=== PATIENT | female | born 1990 | race Hispanic/Latino ===

== ENCOUNTER 2018-04-06 03:04 | Emergency (ER) | payer OTHER, MEDICAID, SELFPAY ==
[2018-04-06 03:14] VITALS: BP 121/86; PULSE 79; RESP 20; TEMP 36.9; O2SAT 100; BMI 25.7
--- NOTE | 2018-04-06 03:27 | ED_ITS ---
HPI - Headache General Chief Complaint: Headache Stated Complaint: left side headache for several days/eye pressure Time Seen by Provider: 04/06/18 03:09 Source: patient and family Mode of arrival: ambulatory Limitations: no limitations History of Present Illness HPI Narrative: 27-year-old female with history of headaches presents with her and child and chief complaint of a rather typical headache for her. She states she gets them a few times a month and they tend to be left frontal, behind her eye associated with photophobia and sensitivity to loud noises. She is nauseated but not vomiting. She denies any recent fever or chills. She has had no injuries or exposure to noxious stimuli. She took her standard migraine therapy at home including Excedrin without relief. She denies numbness, tingling or weakness MD Complaint: headache and migraine Onset (ago): hour(s) Onset description: gradual Location: left and frontal Severity: moderate Severity scale (1-10): 8 Quality: aching, throbbing and similar to previous headaches Relieving factors: dark room Exacerbating factors: exertion, light and noise Associated symptoms: nausea, photophobia, sensitivity to sound and eye pain Treatments prior to arrival: acetaminophen and ibuprofen Related Data Allergies Allergy/AdvReac Type Severity Reaction Status Date / Time No Known Drug Allergies Allergy Verified 04/06/18 03:23 Review of Systems Review of Systems All systems reviewed & are unremarkable except as noted in HPI and below Constitutional Denies chills, Denies fever(s), Reports headache(s), Denies lethargy and Denies weakness Eyes Denies change in vision, Denies eye discharge, Denies irritation and Denies loss of vision ENT Ears, Nose, Mouth, and Throat: Denies change in voice, Reports headache(s), Denies neck pain and Denies sore throat Cardiovascular Denies chest pain, Denies irregular heart rhythm, Denies lightheadedness, Denies palpitations, Denies dyspnea, Denies dyspnea on exertion and Denies orthopnea Respiratory Denies cough, Denies dyspnea, Denies dyspnea on exertion and Denies wheezing Gastrointestinal Gastrointestinal: Denies abdominal pain, Denies change in bowel habits, Denies diarrhea, Reports nausea and Denies vomiting Genitourinary Denies hematuria, Denies flank pain, Denies urinary incontinence and Denies urinary urgency Musculoskeletal Denies neck pain Integumentary/Breasts Denies pruritus, Denies erythema, Denies rash and Denies wounds Neurologic Denies confusion, Reports headache(s), Denies loss of vision and Denies weakness Psychiatric Denies anxiety, Denies confusion, Denies depression, Denies homicidal ideation and Denies suicidal ideation Endocrine Denies palpitations Hematologic/Lymphatic Denies easy bruising Allergic/Immunologic Denies wheezing PFSH Family History Grandfather Stomach cancer Grandmother Heart disease Exam Narrative Exam Narrative: GENERAL: This is a well-nourished, well-developed patient, in mild distress. Obviously uncomfortable, sitting in a dark room, covering her eyes HEAD: Atraumatic. Normocephalic. No temporal or scalp tenderness. EYES: Pupils equal round and reactive. Extraocular motions intact. No scleral icterus. No injection or drainage. ENT: Nose without bleeding, purulent drainage or septal hematoma. Throat without erythema, tonsillar hypertrophy or exudate. Uvula midline. Airway patent. NECK: Trachea midline. No JVD or lymphadenopathy. Supple, nontender, no meningeal signs. CARDIOVASCULAR: Regular rate and rhythm without murmurs, gallops, or rubs. RESPIRATORY: Clear to auscultation. Breath sounds equal bilaterally. No wheezes , rales, or rhonchi. GASTROINTESTINAL: Abdomen soft, non-tender, nondistended. No hepato-splenomegaly , or palpable masses. No guarding. EXTREMITIES: No clubbing, cyanosis, or edema. No joint tenderness, effusion, or edema noted. BACK: Nontender without deformity or crepitance. No flank tenderness. NEURO: AOx3. SKIN: No rash or erythema. Initial Vital Signs Initial Vital Signs: Vital Signs Temperature 98.5 F 04/06/18 03:14 Pulse Rate 79 04/06/18 03:14 Respiratory Rate 20 04/06/18 03:14 Blood Pressure 121/86 04/06/18 03:14 Pulse Oximetry 100 04/06/18 03:14 Course Orders Ordered: Sodium Chloride (Normal Saline 0.9%) 1,000 mls @ 1,000 mls/hr IV BOLUS ONE Stop: 04/06/18 04:20 Last Admin: 04/06/18 03:36 Dose: 1,000 mls/hr Discontinued Medications Dexamethasone (Decadron) 10 mg IV NOW ONE Stop: 04/06/18 03:22 Last Admin: 04/06/18 03:37 Dose: 10 mg Ketorolac Tromethamine (Toradol) 15 mg IV NOW ONE Stop: 04/06/18 03:22 Last Admin: 04/06/18 03:32 Dose: 15 mg Metoclopramide HCl (Reglan) 10 mg IV NOW ONE Stop: 04/06/18 03:22 Last Admin: 04/06/18 03:40 Dose: 10 mg Reevaluation(s) Reevaluation #1: Patient has tremendous improvement of symptoms after above- stated medications Vital Signs - 8 hr 04/06/18 03:14 Temperature 98.5 F Pulse Rate 79 Respiratory Rate 20 Blood Pressure 121/86 Pulse Oximetry 100 Discharge Plan Departure Patient Disposition: Home Clinical Impression: Migraine Instructions: DI for Migraine Activity Restrictions/Additional Instructions: *You have been diagnosed with [ acute migraine headache ] *What to do: * continue to take medications as directed *Follow up with your primary care provider in 2-3 days, call for an appointment. Let them know you were seen in the Emergency Department and that we ask that you be seen in follow up *Return to ER if you should have any new, worsening or concerning symptoms , such as [worsening pain, persistent vomiting, fever over 101 F, development of focal neurologic findings such as numbness, tingling or weakness on 1 side of her body, or other bothersome symptoms ] Referrals: Toña Mallory MD [Primary Care Provider] - Stand Alone Forms: Work/School Restrictions
[2018-04-06] MEDS: KETOROLAC 60 MG/2 ML VIAL 15 MG IV (03:32)
[2018-04-06] MEDS: SODIUM CHLORIDE 0.9% 1,000 ML 1000 ML IV (03:36)
[2018-04-06] MEDS: DEXAMETHASONE 10 MG/ML VIAL IV (03:37)
[2018-04-06] MEDS: METOCLOPRAMIDE 10 MG/2 ML INJ IV (03:40)
[2018-04-06 04:50] VITALS: BP 116/78; PULSE 74; RESP 16; O2SAT 100
== END 2018-04-06 04:51 | disposition home or self-care (01) ==
PROVIDERS: Emergency Provider Emergency Medicine; Family Provider Family Medicine; PCP Family Medicine
DX: G43.909 Migraine, unspecified, not intractable, without status migrainosus (principal)
CPT/HCPCS: 96361; 96374; 96375; 99283; 99284; J1100; J1885; J2765

== ENCOUNTER → 2018-08-15 10:53 | Outpatient (CLI) | payer OTHER, MEDICAID, SELFPAY ==
--- NOTE | 2018-08-15 10:54 | DI.US.S_ITS ---
LIMITED ULTRASOUND OF RIGHT BREAST AND AXILLA: 08/15/2018 CLINICAL: Diffuse right breast pain. No prior exams were available for comparison. Color flow and real-time ultrasound of the right breast lower inner, upper outer, and lower outer quadrants, and axilla regions were performed on the areas of interest. There is 1.8 cm x 0.6 cm x 1.9 cm oval mass with a circumscribed margin in the right breast at 4 o'clock anterior depth. This oval mass is hypoechoic with a well-defined boundary and internal echoes. Color flow imaging demonstrates that there is no vascularity present. No abnormalities were seen sonographically in the right axilla. IMPRESSION: SUSPICIOUS OF MALIGNANCY The 1.8 cm x 0.6 cm x 1.9 cm oval mass in the right breast is at a low suspicion for malignancy. An ultrasound guided biopsy is recommended. There is no abnormality seen in the right breast or in the right axilla to correspond with the pain in the outer aspect and in the right axilla, however, clinical followup is recommended. The findings were discussed with the patient at the conclusion of the study by Dr. Capone. This exam was interpreted at Station ID: [id number]. Electronically Signed By: Brenton laguerre/:08/15/2018 14:44:05 letter sent: Biopsy Required Ultrasound BI-RADS: 4a Suspicious abnormality - low suspicion for malignancy
== END ==
PROVIDERS: PCP Family Medicine; Visit Provider Registered Nurse
DX: R92.8 Other abnormal and inconclusive findings on diagnostic imaging of breast (principal); N64.4 Mastodynia; N63.14 Unspecified lump in the right breast, lower inner quadrant
CPT/HCPCS: 76642

== ENCOUNTER → 2018-08-24 09:29 | Outpatient (CLI) | payer OTHER, MEDICAID, SELFPAY ==
--- NOTE | 2018-08-24 | PATH_ITS ---
[facility] Accession Number: [id number] . 01 Material submitted: . RT BREAST MASS . 01 Clinical history: . 4:00, 4CM FM . 01 Diagnosis: Right Breast Mass, 4 o'clock, 4 cm from Nipple, Biopsy: Fibroadenomatoid change; see comment. Focal usual ductal hyperplasia, mild acute and chronic inflammation. Negative for atypia, carcinoma in situ, or malignancy. MRV/08/25/2018 . 01 Comment: The histologic features, given the reported imaging findings of an oval circumscribed 1.9 cm mass, are consistent with a fibroadenoma. . 01 Electronically signed: . Michelle Gibson MD, Pathologist NPI- [id number] . 01 Gross description: . Received one formalin-filled container labeled with the patient's name and designated RT brst mass, 4 o'clock, 4 cm FN. The specimen is received with plastic filter, sample loose in container. The sample consists of multiple portions of yellow-tejada soft tissue, which aggregate to 1.5 x 0.5 x 0.2 cm. The specimen is filtered, wrapped and entirely submitted in one cassette. Collection date 08/24/2018. Collection time per container is 10:23 a.m. Total fixation time 12 hours up to 24. ([facility] [place]:[id number]) /[facility] . 01 Pathologist provided ICD-10: D24.1 . 01 CPT . 809812 Performed at: [address] [id number] MD Brenton Tapia MD Phone: [phone]
--- NOTE | 2018-08-24 | DI.MG.S_ITS ---
UNILATERAL RIGHT DIGITAL DIAGNOSTIC MAMMOGRAM POST-NEEDLE BIOPSY: 08/24/2018 CLINICAL: Post clip placement. Pain in the right breast. Comparison is made to exams dated: 08/24/2018 ultrasound biopsy and 08/15/2018 [facility]. The tissue of right breast is extremely dense, which lowers the sensitivity of mammography. The biopsy clip is next to the biopsy site. IMPRESSION: POST PROCEDURE MAMMOGRAM FOR MARKER PLACEMENT The biopsy clip next to the biopsy site. This exam was interpreted at Station ID: [id number]. NOTE: For mammograms, a report in lay terms will be sent to the patient. Approximately 15% of breast malignancies will not be visualized mammographically. In the management of a palpable breast mass, a negative mammogram must not discourage biopsy of a clinically suspicious lesion. Electronically Signed By: Casper biggs/caroline:08/24/2018 14:53:06 ACR BI-RADS Category Post-procedure mammogram for marker placement
--- NOTE | 2018-08-24 09:30 | DI.US.S_ITS ---
ULTRASOUND GUIDED BIOPSY RIGHT BREAST USING VACUUM DEVICE WITH POST MAMMOGRAPHIC AND ULTRASOUND IMAGIN08/24/2018 CLINICAL: Pain of right breast. PATIENT CONSENT: Risks (minor bleeding, infection, vasovagal reaction and repeat procedure), benefits and alternatives were explained to the patient and written informed consent was obtained. Correlation is made to exams dated: 08/24/2018 ultrasound biopsy and 08/15/2018 [facility]. An ultrasound guided biopsy using real-time ultrasound was performed for the irregular shaped mass located in the right breast at 4 o'clock middle depth. This was described on the previous ultrasound report. The skin was prepped in the usual manner. Local anesthetic was administered to the access site. The abnormality was approached from the lateral aspect. A 13 gauge biopsy needle was placed adjacent to the abnormality under ultrasound guidance. Once the needle was documented to be in the correct location, five specimens were obtained using the Mammotome biopsy system. Post procedure mammographic and ultrasound imaging demonstrates the clip at the targeted area. The specimens were sent to the laboratory for pathological analysis. IMPRESSION: ULTRASOUND GUIDED BIOPSY BENIGN Ultrasound guided biopsy of the mass in the right breast middle depth was successful. Pathology indicates benign usual ductal hyperplasia (DHU), fibroadenomatoid change, chronic inflammation, and acute inflammation. Pathology results are concordant with imaging findings. This exam was interpreted at Station ID: [id number]. Casper Jerome M.D. fx,aty/:08/29/2018 18:57:16
== END ==
PROVIDERS: PCP Family Medicine; Visit Provider Registered Nurse
DX: D24.1 Benign neoplasm of right breast (principal); N60.91 Unspecified benign mammary dysplasia of right breast; N61.0 Mastitis without abscess
CPT/HCPCS: 19083; 77065; 88305

== ENCOUNTER → 2018-11-30 10:18 | Outpatient (CLI) | payer OTHER, MEDICAID, SELFPAY ==
[2018-11-30 11:13] LABS: Pregnancy Test Urine Negative (Negative)
== END ==
PROVIDERS: PCP Family Medicine; Visit Provider Family Medicine
DX: Z30.431 Encounter for routine checking of intrauterine contraceptive device (principal)
CPT/HCPCS: 81025

== ENCOUNTER → 2018-12-13 16:07 | Outpatient (CLI) | payer OTHER, MEDICAID, SELFPAY ==
[2018-12-13 18:29] LABS: Urine N gonorrhoeae NOT DETECTED
[2018-12-13 19:01] LABS: Urine Chlamydia NOT DETECTED
== END ==
PROVIDERS: PCP Family Medicine; Visit Provider Family Medicine
DX: Z11.3 Encounter for screening for infections with a predominantly sexual mode of transmission (principal)
CPT/HCPCS: 87491; 87591

== ENCOUNTER → 2019-04-18 15:26 | Outpatient (CLI) | payer OTHER, MEDICAID, SELFPAY ==
[2019-04-18 20:10] LABS: Urine N gonorrhoeae NOT DETECTED
[2019-04-18 22:01] LABS: Urine Chlamydia NOT DETECTED
== END ==
PROVIDERS: PCP Family Medicine; Visit Provider Nurse Practitioner Family
DX: N89.8 Other specified noninflammatory disorders of vagina (principal)
CPT/HCPCS: 87210; 87491; 87591

== ENCOUNTER → 2019-08-13 14:23 | Outpatient (CLI) | payer OTHER, MEDICAID, SELFPAY ==
[2019-08-21 14:51] LABS: C.trachomatis RNA NOT DETECTED; N.gonorrhoeae RNA NOT DETECTED
== END ==
PROVIDERS: PCP Family Medicine; Visit Provider Family Medicine
DX: Z12.4 Encounter for screening for malignant neoplasm of cervix (principal); N10 Acute pyelonephritis
CPT/HCPCS: 87491; 87591

== ENCOUNTER → 2019-08-21 08:17 | Outpatient (CLI) | payer OTHER, MEDICAID, SELFPAY ==
--- NOTE | 2019-08-21 08:18 | DI.US.S_ITS ---
PROCEDURE: US PELVIC COMPLETE INDICATIONS: DYSMENORRHEA,MENORRHAGIA TECHNIQUE: Real-time scanning was performed of the pelvic organs, with image documentation. Additional endovaginal scanning was necessary due to incomplete visualization of the adnexal and endometrial structures by transabdominal scanning. COMPARISON: [facility], , PELVIC COMPLETE, 01/03/2017, 16:14. FINDINGS: Transabdominal scanning: Limited scanning through the kidneys shows no hydronephrosis. No pathologic free abdominal or pelvic fluid. Endovaginal scanning: Uterus: Uterus is normal in size at 7.1 x 4.0 x 5.3 cm. The endometrium measures 8 mm in combined thickness. An intrauterine device is identified within the endometrial cavity and appears appropriately positioned. Ovaries: Bilateral ovaries are normal in appearance. Right ovary measures 3.0 x 2.1 x 3.1 cm. Left ovary measures 3.0 x 1.4 x 3.2 cm. No suspicious ovarian/adnexal masses. IMPRESSION: Negative sonographic evaluation the pelvis. An intrauterine device is visualized within the endometrial cavity. Dictated by: Sorin Jerome M.D. on 08/21/2019 at 13:08 Approved by: Sorin Jerome M.D. on 08/21/2019 at 13:12
== END ==
PROVIDERS: PCP Family Medicine; Referring Provider Family Medicine; Visit Provider Family Medicine
DX: N94.6 Dysmenorrhea, unspecified (principal); N92.0 Excessive and frequent menstruation with regular cycle; Z97.5 Presence of (intrauterine) contraceptive device
CPT/HCPCS: 76830; 76856

== ENCOUNTER → 2019-09-12 13:45 | Outpatient (CLI) | payer OTHER, MEDICAID, SELFPAY ==
[2019-09-12 16:40] LABS: Hepatitis B Surface Antigen NEGATIVE s/c (NEGATIVE)
[2019-09-12 17:07] LABS: HIV 1 & 2 Ab/Ag 4th Gen Combo NEGATIVE (NEGATIVE); Hep C Virus Ab w/Reflex Quant NEGATIVE s/c (NEGATIVE)
[2019-09-14 22:02] LABS: RPR Screen Nonreactive (Nonreactive)
== END ==
PROVIDERS: PCP Family Medicine; Referring Provider Obstetrics & Gynecology; Visit Provider Obstetrics & Gynecology
DX: Z11.3 Encounter for screening for infections with a predominantly sexual mode of transmission (principal)
CPT/HCPCS: 36415; 86592; 86803; 87340; 87389

== ENCOUNTER 2019-10-13 00:22 | Emergency (ER) | payer OTHER, MEDICAID, SELFPAY ==
--- NOTE | 2019-10-13 00:25 | ED_ITS ---
HPI - Headache General Chief Complaint: Headache Stated Complaint: migraine 3 days Time Seen by Provider: 10/13/19 00:24 Source: patient Mode of arrival: Ambulatory Limitations: no limitations History of Present Illness HPI Narrative: 29-year-old female nonsmoker with a history of migraines presents with a chief complaint of a gradually worsening left frontal headache over the course of the past 3 days. She states it is made worse by bright lights, loud noises and exertion. It is squeezing in nature. She has had nausea but no vomiting. She denies any fever or chills nor runny nose, sore throat or cough. She has had no recent injury or trauma. She denies any chest pain or shortness of breath. She denies any exposure to persons known to be positive for COVID-19 MD Complaint: headache and migraine Onset (ago): day(s) Onset description: gradual Location: left and frontal Quality: aching and throbbing Relieving factors: dark room Exacerbating factors: light and noise Associated symptoms: nausea Treatments prior to arrival: ibuprofen Related Data Home Medications Medication Instructions Recorded Confirmed [id number] 250 2 tab PO Q6H PRN 05/09/18 09/11/19 mg-250 mg-65 mg tablet Previous Rx's Medication Instructions Recorded lidocaine 5 % topical patch 1 patch TOP DAILY PRN #15 each 09/03/19 levonorgestrel 0.15 mg-ethinyl 1 tab PO DAILY #84 tab 09/11/19 estradiol 0.03 mg tablet Allergies Allergy/AdvReac Type Severity Reaction Status Date / Time No Known Drug Allergies Allergy Verified 10/13/19 00:32 Review of Systems Constitutional Constitutional: Denies chills, Denies fatigue, Denies fever(s), Denies frequent falls, Reports headache(s), Denies lethargy and Denies weakness Eyes Eyes: Denies change in vision, Denies eye discharge, Denies irritation and Denies loss of vision ENT Ears, Nose, Mouth, and Throat: Denies change in voice, Denies dizziness, Reports headache(s), Denies neck pain, Denies sore throat and Denies throat swelling Cardiovascular Cardiovascular: Denies chest pain, Denies irregular heart rhythm, Denies lightheadedness, Denies palpitations, Denies dyspnea, Denies dyspnea on exertion and Denies orthopnea Respiratory Respiratory: Denies cough, Denies dyspnea, Denies dyspnea on exertion and Denies wheezing Gastrointestinal Gastrointestinal: Denies abdominal pain, Denies change in bowel habits, Denies diarrhea, Reports nausea and Denies vomiting Genitourinary Genitourinary: Denies hematuria, Denies flank pain, Denies urinary incontinence and Denies urinary urgency Musculoskeletal Musculoskeletal: Denies back pain, Denies muscle weakness, Denies neck pain, Denies numbness and Denies tingling Integumentary/Breasts Skin/Breast: Denies pruritus, Denies erythema, Denies rash and Denies wounds Neurologic Neurologic: Denies behavioral changes, Denies confusion, Denies dizziness, Denies frequent falls, Reports headache(s), Denies loss of vision, Denies numbness, Denies tingling and Denies weakness Psychiatric Psychiatric: Denies anxiety, Denies behavioral changes, Denies confusion, Denies depression, Denies homicidal ideation and Denies suicidal ideation Endocrine Endocrine: Denies fatigue, Denies flushing and Denies palpitations Hematologic/Lymphatic Hematologic/Lymphatic: Denies easy bruising Allergic/Immunologic Allergic/Immunologic: Denies urticaria, Denies throat swelling and Denies wheezing Patient History Medical History Anemia (Chronic) Gastric ulcer (Chronic) Genital warts (Chronic) IBS (irritable bowel syndrome) (Chronic) Vaginal delivery (Resolved 04/21/15) Family History Grandfather Stomach cancer Grandmother Heart disease Father No problems noted. Grandmother No problems noted. Mother No problems noted. Grandfather Kidney disease Sister No problems noted. Sister No problems noted. Sister No problems noted. Social History Smoking Status: Never smoker alcohol intake: never substance use type: does not use Smoking Status: Never smoker Exam Narrative Exam Narrative: GENERAL: [29] year old patient appears stated age. Well- nourished, well-developed patient, in mild distress. Obviously uncomfortable, sitting in a dark room rubbing her temples HEAD: Atraumatic. Normocephalic. EYES: Pupils equal round and reactive. Extraocular motions intact. No scleral icterus. No injection or drainage. ENT: Nose without bleeding, purulent drainage. Throat without erythema, tonsillar hypertrophy or exudate. Airway patent. NECK: Trachea midline. Non tender CARDIOVASCULAR: Regular rate and rhythm without murmurs, gallops, or rubs. RESPIRATORY: Clear to auscultation. Breath sounds equal bilaterally. No wheezes, rales, or rhonchi. GASTROINTESTINAL: Abdomen soft, non-tender, nondistended. EXTREMITIES: No edema or joint tenderness. BACK: Nontender without deformity or crepitance. No flank tenderness. NEURO: AOx3. SKIN: No rash or erythema of visible areas NIH Stroke Scale 1a. LOC: Patient is alert and keenly responsive (0) 1b. LOC Questions: Patient answers both LOC questions accurately (0) 1c. LOC Commands: Patient performs both tasks correctly (0) 2. Best Gaze: Normal (0) 3. Visual: No visual loss (0) 4. Facial palsy: Normal symmetrical movements (0) 5. Motor arm: No drift (0) 6. Motor leg: No drift (0) 7. Limb ataxia: Absent (0) 8. Sensory: Normal (0) 9. Best language: No aphasia; normal (0) 10. Dysarthria: Normal (0) 11. Extinction and inattention: No abnormality (0) NIHSS: 0 Initial Vital Signs Initial Vital Signs: Vital Signs Temperature 98.7 F 10/13/19 00:27 Pulse Rate 96 H 10/13/19 00:27 Respiratory Rate 14 10/13/19 00:27 Blood Pressure 162/102 H 10/13/19 00:27 Pulse Oximetry 100 10/13/19 00:27 Course Course Course Narrative: patient had a near complete resolution of symptoms after the above stated therapies Orders Ordered: Discontinued Medications Dexamethasone (Decadron) 10 mg IV NOW ONE Stop: 10/13/19 00:29 Last Admin: 10/13/19 00:51 Dose: 10 mg Documented by: PARI Sodium Chloride (Normal Saline 0.9%) 1,000 mls @ 1,000 mls/hr IV BOLUS ONE Stop: 10/13/19 01:27 Last Infusion: 10/13/19 02:17 Dose: 0 mls/hr Documented by: Admin: 10/13/19 00:52 Dose: 1,000 mls/hr Documented by: PARI Ketorolac Tromethamine (Toradol) 15 mg IV NOW ONE Stop: 10/13/19 00:29 Last Admin: 10/13/19 00:51 Dose: 15 mg Documented by: PARI Metoclopramide HCl (Reglan) 10 mg IV NOW ONE Stop: 10/13/19 00:29 Last Admin: 10/13/19 00:51 Dose: 10 mg Documented by: PARI Vital Signs Vital signs: Vital Signs - 8 hr 10/13/19 00:27 10/13/19 02:19 Temperature 98.7 F Pulse Rate 96 H 71 Respiratory Rate 14 14 Blood Pressure 162/102 H 120/77 Pulse Oximetry 100 100 Discharge Plan Departure Patient Disposition: Home Clinical Impression: Migraine Qualifiers: Migraine type: unspecified Status migrainosus presence: without status migrainosus Intractability: not intractable Qualified Code(s): G43.909 - Migraine, unspecified, not intractable, without status migrainosus Discharge Date/Time: 10/13/19 02:20 Instructions: DI for Migraine Activity Restrictions/Additional Instructions: *You have been diagnosed with [acute headache, likely migraine] *What to do: *Take medications as directed *Follow up with your primary care provider in 2-3 days, call for an appointment. Let them know you were seen in the Emergency Department and that we ask that you be seen in follow up *Return to ER if you should have any new, worsening or concerning symptoms Prescriptions: No Action lidocaine [Lidoderm] 5 % adhesive patch,medicated 1 patch TOP DAILY PRN (Reason: pain) Qty: 15 RF: 0 levonorgestrel-ethinyl estrad [Levora-28] 0.15-0.03 mg tablet 1 tab PO DAILY Qty: 84 RF: 1 [id number]-baswbpyqnknov-sfrveiei [Excedrin Migraine] 250-250-65 mg tablet 2 tab PO Q6H PRNRF: 0 Referrals: Ирина Guevara MD [Primary Care Provider] -
[2019-10-13 00:27] VITALS: BP 162/102; PULSE 96; RESP 14; TEMP 37.1; O2SAT 100; BMI 27.1
--- NOTE | 2019-10-13 00:34 | PC.NURSE ---
patient states she took everything she had to try and stop her migraine. states she is out of migraine medication.
[2019-10-13] MEDS: KETOROLAC 60 MG/2 ML VIAL 15 MG IV (00:51)
[2019-10-13] MEDS: DEXAMETHASONE 10 MG/ML VIAL IV (00:51)
[2019-10-13] MEDS: METOCLOPRAMIDE 10 MG/2 ML INJ IV (00:51)
[2019-10-13] MEDS: SODIUM CHLORIDE 0.9% 1,000 ML 1000 ML IV (00:52)
[2019-10-13 02:19] VITALS: BP 120/77; PULSE 71; RESP 14; O2SAT 100
== END 2019-10-13 02:20 | disposition home or self-care (01) ==
PROVIDERS: Emergency Provider Emergency Medicine; PCP Family Medicine
DX: G43.909 Migraine, unspecified, not intractable, without status migrainosus (principal)
CPT/HCPCS: 96361; 96374; 96375; 99283; 99284; J1100; J1885; J2765

== ENCOUNTER → 2019-12-07 09:15 | Outpatient (CLI) | payer OTHER, MEDICAID, SELFPAY ==
--- NOTE | 2019-12-07 09:16 | DI.RAD.S_ITS ---
PROCEDURE: XR KNEE RT 3V INDICATIONS: right knee pain after fall, limited ROM TECHNIQUE: 3 views of the knee were acquired. COMPARISON: None. FINDINGS: Bones: No fractures or dislocations. No suspicious bony lesions. There is mild to moderate lateral facet patellofemoral joint osteoarthritis. Minimal medial and lateral compartment joint space narrowing is present. Soft tissues: No joint effusion. No suspicious soft tissue calcifications. IMPRESSION: Mild degenerative osteoarthritis, no effusion or loose body seen, no trauma found. Dictated by: Lion Moore M.D. on 12/07/2019 at 11:26 Approved by: Lion Moore M.D. on 12/07/2019 at 11:27
== END ==
PROVIDERS: PCP Family Medicine; Referring Provider Family Medicine; Visit Provider Family Medicine
DX: M25.561 Pain in right knee (principal); M17.11 Unilateral primary osteoarthritis, right knee
CPT/HCPCS: 73562

== ENCOUNTER → 2020-02-22 12:33 | Outpatient (CLI) | payer OTHER, MEDICAID, SELFPAY ==
[2020-02-22 13:54] LABS: Prolactin 14.8 ng/mL (3.0-18.6)
[2020-02-22 14:07] LABS: TSH w/ Reflex to FT4 0.83 uIU/mL (0.47-4.68)
== END ==
PROVIDERS: PCP Family Medicine; Referring Provider Family Medicine; Visit Provider Family Medicine
DX: E04.9 Nontoxic goiter, unspecified (principal); N64.3 Galactorrhea not associated with childbirth
CPT/HCPCS: 36415; 84146; 84443

== ENCOUNTER → 2020-02-27 14:45 | Outpatient (CLI) | payer OTHER, MEDICAID, SELFPAY | PROVIDERS: PCP Family Medicine; Visit Provider Nurse Practitioner Family | DX: N89.8 Other specified noninflammatory disorders of vagina (principal); R10.2 Pelvic and perineal pain | CPT/HCPCS: 87210 ==

== ENCOUNTER → 2020-02-28 13:17 | Outpatient (CLI) | payer OTHER, MEDICAID, SELFPAY ==
--- NOTE | 2020-02-28 13:18 | DI.US.S_ITS ---
PROCEDURE: US THYROID INDICATIONS: ENLARGED THYROID TECHNIQUE: Real-time scanning was performed of the thyroid gland, with image documentation. COMPARISON: None. FINDINGS: Right: Thyroid lobe measures 4.8 x 2.0 x 1.6 cm, and is homogeneous in echotexture. Left: Thyroid lobe measures 4.7 x 1.4 x 1.6 cm, and is homogenous in echotexture. Isthmus: 4.0 mm thick. IMPRESSION: Normal thyroid. Dictated by: Yosef Hodges Elvie Interpreted: Marisol Bauer MD on 02/28/2020 at 13:43 Approved by: Marisol Bauer M.D. on 02/28/2020 at 17:41
== END ==
PROVIDERS: PCP Family Medicine; Referring Provider Family Medicine; Visit Provider Family Medicine
DX: E04.9 Nontoxic goiter, unspecified (principal)
CPT/HCPCS: 76536

== ENCOUNTER → 2020-03-20 12:57 | Outpatient (CLI) | payer OTHER, MEDICAID, SELFPAY ==
--- NOTE | 2020-03-20 13:11 | DI.US.S_ITS ---
Patient Name: ZAHRAA MILLAN date: 1990 Sex: F Attending Physician: Paola Indications: Date: 03/20/2020 13:14 At the request of: CECY STEEN Procedure: US breast RT limited LIMITED ULTRASOUND OF RIGHT BREAST: 03/20/2020 CLINICAL: Nipple discharge, right breast, not bloody. Comparison is made to exams dated: 08/24/2018 ultrasound biopsy, 08/24/2018 mammogram, 08/24/2018 ultrasound biopsy, and 08/15/2018 [facility]. Ultrasound of the right breast 4 o'clock, and retroareolar regions was performed. There is a stable 1.7 cm x 0.5 cm x 1.2 cm dilated duct in the right breast at 4 o'clock in the retroareolar region. This dilated duct contains material of mixed echogenicity but no vascularity. This correlates with the nipple discharge. IMPRESSION: PROBABLY BENIGN The stable 1.7 cm x 0.5 cm x 1.2 cm dilated duct in the right breast was previously biopsied and proven to be benign. Continued follow-up with ultrasound in 6 months is recommended to demonstrate stability given patient's ongoing symptoms. Findings and recommendations were conveyed to the patient at time of exam. This exam was interpreted at Station ID: [id number]. Electronically Signed By: Marisol avery/:03/20/2020 13:55:17 letter sent: Followup Recommended Ultrasound BI-RADS: 3 Probably benign
== END ==
PROVIDERS: PCP Family Medicine; Referring Provider Family Medicine; Visit Provider Family Medicine
DX: N64.3 Galactorrhea not associated with childbirth (principal)
CPT/HCPCS: 76642

== ENCOUNTER → 2020-05-19 14:20 | Outpatient (CLI) | payer OTHER, MEDICAID, SELFPAY | PROVIDERS: Family Provider Family Medicine; PCP Family Medicine; Visit Provider Family Medicine | DX: B96.89 Other specified bacterial agents as the cause of diseases classified elsewhere (principal); N76.0 Acute vaginitis; N89.8 Other specified noninflammatory disorders of vagina | CPT/HCPCS: 87070; 87205; 87210; 87491; 87591 ==

== ENCOUNTER 2020-08-17 09:43 | Emergency (ER) | payer OTHER, MEDICAID, SELFPAY ==
[2020-08-17 09:54] VITALS: BP 146/99; PULSE 102; RESP 18; TEMP 36.9; O2SAT 100
--- NOTE | 2020-08-17 10:02 | ED_ITS ---
HPI - General Adult General Chief complaint: Headache Stated complaint: migraine Time Seen by Provider: 08/17/20 09:56 Source: patient Mode of arrival: Ambulatory Limitations: no limitations History of Present Illness HPI narrative: 30-year-old female who has a history of migraine headaches here for evaluation of 1 of her typical migraines. She states that over the past week she has had an off and on headache however the 1 that she currently has started this morning. Did wake her from sleep. She states that over the past week she has also had ear pain and sinus congestion and sore throat. She was seen by another provider who told her to take some nasal sprays for what they thought was a sinus congestion. She states she has been doing this without any relief. She did try some Excedrin migraine this morning before arrival. Denies any trauma. No other neurologic symptoms. Related Data Home Medications Medication Instructions Recorded Confirmed tcfacmi-oreqpuzhkccyd-bxxjzsiz 250 2 tab PO Q6H PRN 05/09/18 08/12/20 mg-250 mg-65 mg tablet Previous Rx's Medication Instructions Recorded norethindrone (contraceptive) 0.35 0.35 mg PO DAILY #84 tab 03/13/20 mg tablet metronidazole 0.75 % vaginal gel See Rx Instructions VAGINAL BID 10 06/13/20 Days #140 g prednisone 20 mg PO DAILY 2 Days #2 tab 08/17/20 Allergies Allergy/AdvReac Type Severity Reaction Status Date / Time No Known Drug Allergies Allergy Verified 08/12/20 12:19 Review of Systems Constitutional Constitutional: Denies fever(s) and Reports headache(s) Eyes Eyes: Denies change in vision ENT Ears, Nose, Mouth, and Throat: Denies vertigo, Denies dizziness, Denies ear discharge, Reports otalgia, Reports headache(s), Denies epistaxis, Reports sinus pain and Reports sore throat Cardiovascular Cardiovascular: Denies chest pain and Denies dyspnea Respiratory Respiratory: Reports cough and Denies dyspnea Gastrointestinal Gastrointestinal: Denies abdominal pain, Denies nausea and Denies vomiting Musculoskeletal Musculoskeletal: Denies numbness and Denies tingling Integumentary/Breasts Skin/Breast: Denies rash Neurologic Neurologic: Denies behavioral changes, Denies vertigo, Denies dizziness, Reports headache(s), Denies numbness and Denies tingling Psychiatric Psychiatric: Denies behavioral changes Hematologic/Lymphatic On Anticoagulants: No Allergic/Immunologic Allergic/Immunologic: Denies urticaria Patient History Medical History Anemia Bacterial vaginosis Gastric ulcer Genital warts IBS (irritable bowel syndrome) Migraine with aura and with status migrainosus Vaginal delivery (04/21/15) Family History Grandfather Stomach cancer Grandmother Heart disease Father No problems noted. Grandmother No problems noted. Mother No problems noted. Grandfather Kidney disease Sister No problems noted. Sister No problems noted. Sister No problems noted. Social History Smoking Status: Never smoker alcohol intake: never substance use type: does not use Smoking Status: Never smoker alcohol intake frequency: 0-2 drinks per day Substance Use Type: does not use Exam Initial Vital Signs Initial Vital Signs: Vital Signs Temperature 98.5 F 08/17/20 09:54 Pulse Rate 102 H 08/17/20 09:54 Respiratory Rate 18 08/17/20 09:54 Blood Pressure 146/99 H 08/17/20 09:54 Pulse Oximetry 100 08/17/20 09:54 Const General: cooperative, healthy appearing and comfortable Limitations: mental status not altered HENMT Head: normal to inspection and normocephalic Ears: TM's normal bilaterally Nose: external nose normal Face and sinus: normal facial exam Mouth: oral mucosae normal Throat: posterior oropharynx normal Neck Lymphatic: lymphadenopathy Resp Effort & Inspection: normal respiratory effort Auscultation: clear to auscultation bilaterally Cardio Rate: regular rate Rhythm: regular rhythm Skin Lesions: no lesions Rashes: no rashes Neuro General: patient alert, patient awake and patient oriented x3 Cognition: normal cognition Speech: speech normal Gait: normal gait Extrem General: capillary refill normal Psych Appearance: grossly normal and well kempt Scores GCS Alea coma scale eye opening: Spontaneous [place] coma scale verbal response: Orientated Alea coma scale motor response: Obey commands Alea coma scale total score: 15 Course Orders Ordered: Discontinued Medications Acetaminophen (Acetaminophen 325 Mg Tablet) 650 mg PO NOW ONE Stop: 08/17/20 10:01 Last Admin: 08/17/20 10:12 Dose: 650 mg Documented by: Diphenhydramine HCl (Diphenhydramine 50 Mg/Ml Vial) 25 mg IV NOW ONE Stop: 08/17/20 10:01 Last Admin: 08/17/20 10:12 Dose: 25 mg Documented by: Sodium Chloride (Normal Saline 0.9%) 1,000 mls @ 1,000 mls/hr IV BOLUS ONE Stop: 08/17/20 10:59 Last Admin: 08/17/20 10:12 Dose: 1,000 mls/hr Documented by: Ketorolac Tromethamine (Ketorolac 60 Mg/2 Ml Vial) 30 mg IV NOW ONE Stop: 08/17/20 10:01 Last Admin: 08/17/20 10:12 Dose: 30 mg Documented by: Metoclopramide HCl (Metoclopramide 10 Mg/2 Ml Inj) 10 mg IV NOW ONE Stop: 08/17/20 10:01 Last Admin: 08/17/20 10:13 Dose: 10 mg Documented by: Ondansetron HCl (Ondansetron 4 Mg/2 Ml Inj) 4 mg IV NOW ONE Stop: 08/17/20 11:00 Vital Signs Vital signs: Vital Signs - 8 hr 08/17/20 09:54 Temperature 98.5 F Pulse Rate 102 H Respiratory Rate 18 Blood Pressure 146/99 H Pulse Oximetry 100 Medical Decision Making MDM Narrative Medical decision making narrative: Patient is afebrile. She has no neck pain. Low suspicion for meningitis. No trauma. Has a history of migraines this feels like 1 of her typical migraines. Will hold on radiologic studies for now. She reports improvement after above medications here in the emergency department. States she is still having some pain in the back of her head what things are much better. She denied any offer for continue nausea medications. She does have right home. Will place her on decongestants for the next couple days and also steroids. She was given her 1st dose here in the ER. She was given return precautions and follow-up instructions. She expressed understanding and agreement. Discharge Plan Departure Patient Disposition: Home Clinical Impression: Headache, Sinus congestion Instructions: DI for Headache Activity Restrictions/Additional Instructions: I recommend that you purchase kxez-sch-vlrlgmn antihistamines such as Claritin or Julienne or Zyrtec. You can find these medications and any drug store. The generic versions of them are appropriate as well. You were given your 1st dose of steroids here in the ER so prescription for the remaining 2 days was electronically transmitted to [facility] per your request. Start taking it tomorrow. Return to the emergency department for any new or worsening symptoms Prescriptions: New prednisone 20 mg tablet 20 mg PO DAILY 2 Days Qty: 2 RF: 0 No Action metronidazole 0.75 % gel See Rx Instructions vaginal BID 10 Days Qty: 140 RF: 4 norethindrone (contraceptive) [Ortho Micronor] 0.35 mg tablet 0.35 mg PO DAILY Qty: 84 RF: 3 [id number]-[id number]-otlvxhbb [Excedrin Migraine] 250-250-65 mg tablet 2 tab PO Q6H PRNRF: 0 Referrals: Ирина Guevara MD [Primary Care Provider] -
[2020-08-17] MEDS: SODIUM CHLORIDE 0.9% 1,000 ML 1000 ML IV (10:12)
[2020-08-17] MEDS: KETOROLAC 60 MG/2 ML VIAL 30 MG IV (10:12)
[2020-08-17] MEDS: ACETAMINOPHEN 325 MG TABLET 650 MG PO (10:12)
[2020-08-17] MEDS: diphenhydrAMINE 50 MG/ML VIAL 25 MG IV (10:12)
[2020-08-17] MEDS: METOCLOPRAMIDE 10 MG/2 ML INJ IV (10:13)
[2020-08-17 10:30] VITALS: PULSE 78; O2SAT 99
[2020-08-17 11:00] VITALS: BP 114/73; PULSE 69; O2SAT 98
[2020-08-17] MEDS: predniSONE 20 MG TABLET PO (11:20)
== END 2020-08-17 11:24 | disposition home or self-care (01) ==
PROVIDERS: Emergency Provider Emergency Medicine; Family Provider Family Medicine; PCP Family Medicine
DX: R51.9 Headache, unspecified (principal); R09.81 Nasal congestion
CPT/HCPCS: 96361; 96374; 96375; 99281; 99284; J1200; J1885; J2765

== ENCOUNTER → 2020-08-18 13:10 | Outpatient (CLI) | payer OTHER, MEDICAID, SELFPAY ==
[2020-08-18 15:25] LABS: COVID19 -Nasal RAPID Negative (Negative)
== END ==
PROVIDERS: Family Provider Family Medicine; PCP Family Medicine; Visit Provider Physician Assistant
DX: R09.81 Nasal congestion (principal); R51.9 Headache, unspecified; Z20.822 Contact with and (suspected) exposure to COVID-19
CPT/HCPCS: 87635

== ENCOUNTER 2020-09-22 13:00 | Outpatient (RCR) | payer OTHER, MEDICAID, SELFPAY ==
--- NOTE | 2020-06-11 17:53 | PT.OIE ---
Current Diagnoses Pain in right knee (06/11/20) Pain in left leg (06/11/20) Difficulty in walking, not elsewhere classified (06/11/20) Abnormal posture (06/11/20) Weakness (06/11/20) Unspecified injury of right lower leg, initial encounter (06/11/20) Past Medical History (Last Updated 04/14/20 @ 17:09 by Ирина Guevara MD) Anemia Bacterial vaginosis Gastric ulcer Genital warts IBS (irritable bowel syndrome) Migraine with aura and with status migrainosus Vaginal delivery (04/21/15) Visit Care Team Role Provider Type Ирина Guevara MD Attending Provider Physician Family Provider Primary Care Provider Referring Provider Specialty: [facility] Practice Address: [address] [place] [address], [place], [place], [facility] Email: [email or web address] Physical Therapy Initial Evaluation PT-OP-A Visit Information Start: 06/04/20 15:24 Freq: Status: Active Protocol: Document 06/11/20 13:00 [facility] (Rec: 06/11/20 13:48 [facility] [id number]) Out-Patient Physical Therapy Visit Information Visit Information Visit Type Initial Evaluation Visit Start Time 13:03 Visit Stop Time 13:47 Total Visit Minutes 44 Visit Number 1 Number of CLOSER ON Visits 0 PT-OP-B Current Condition Start: 06/04/20 15:24 Freq: Status: Active Protocol: Document 06/11/20 13:00 [facility] (Rec: 06/11/20 13:48 [facility] [id number]) Current Condition History of Current Condition Onset Date December Current Complaints B knee pain & calves History of Current Condition During the summer, pt was running [place] and 5 miles every ohter day. A board broke and she landed with L leg through hole and R knee hit the gorund. Had to walk back 2 miles even though she was hurting. She had a big bruise. She keeps falling all the time recently. She loves to exercise and run but ever since seh fell, she has been having trouble w/falling. She fell again on R knee the other day. Pt reports pain behind knee cap and feels like a pulled mm or something. Xrays showed no breaks. Pt has not been exercising much because nishant gets tired really fast and if she does too much her knee hurts so she cannot sleep. 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 pt reports sometimes has a hard time sleeping d/t R knee pain and shoulder problem that she tried PTf or but it didn't help. Pt reports after fall it feel slike R shoulder got worse and back pain got worse and R leg goes numb and cold sometimes. Pt reports knees and post ankles have been popping more. Pt likes to wear heels Prior Treatments and Tests Xrays-no issues, pain patches -help some Treatment Goals Patient/Caregiver Goals be able to walk and run, return to lifting, PT-OP-C Subjective Start: 06/04/20 15:24 Freq: Status: Active Protocol: Document 06/11/20 13:00 [facility] (Rec: 06/11/20 13:48 [facility] [id number]) Patient Questionnaires Lower Extremity Functional Scale LEFS Score 46 LEFS Impairment 40 to 59% Impaired (Score 32- 47) OP-PT Pain Assessment Location L knee Pain Location Details L ant knee & calf Intensity 5 Scale Used Numeric (0 - 10) Description- Other stiff in the back, knee feels warm Frequency Occasional Pain Aggravating Factors Standing,Walking Pain Alleviating Factors Medication Other Pain Alleviating Factors warm bath R knee Pain Location Details behind knee cap Intensity 7 Scale Used Numeric (0 - 10) Description Pulling Description- Other warm hurting feeling Frequency Daily Variations/Patterns ant sparks Pain Aggravating Factors Exercise,Standing,Walking, Stair Climbing Other Pain Aggravating Factors sitting w/LE dangling, squatting, at night Other Pain Alleviating Factors pain patches, hot bath, CBD lotion, advil/tylenol PT-OP-D Balance Start: 06/04/20 15:24 Freq: Status: Active Protocol: Document 06/11/20 13:00 [facility] (Rec: 06/11/20 13:48 [facility] [id number]) Balance Tests Single Limb Standing Single Limb- Right 10 sec w/a lot of UE movement & trunk twisting Single Limb- Left 23 sec w/some lat leaning PT-OP-F Manual Assessment Start: 06/04/20 15:24 Freq: Status: Active Protocol: Document 06/11/20 13:00 [facility] (Rec: 06/11/20 13:48 [facility] [id number]) Manual Assessments Soft Tissue Assessment Soft Tissue Mobility Assessment R tenderness to joint lines B, HS, quads & adductors & ITB tight; L calf & quad tigthness , tenderness B patellar tendons Joint Mobility Assessment Joint Mobility Assessment IR of B femurs, minor IR Of tibia PT-OP-G Mobility & Gait Start: 06/04/20 15:24 Freq: Status: Active Protocol: Document 06/11/20 13:00 [facility] (Rec: 06/11/20 13:48 [facility] [id number]) OP Gait Assessment Comments Gait Comments Pt has excessive pelvic rotation & dec push off PT-OP-J Posture/Palpation/Skin Start: 06/04/20 15:24 Freq: Status: Active Protocol: Document 06/11/20 13:00 [facility] (Rec: 06/11/20 13:48 [facility] [id number]) Posture Evaluation [facility] Postural Classification System Lumbar Protective Mechanism Left AP 0 Lumbar Protective Mechanism Right AP 0 Lumbar Protective Mechanism Left PA 3 Lumbar Protective Mechanism Right PA 0 PT-OP-K Range of Motion Start: 06/04/20 15:24 Freq: Status: Active Protocol: Document 06/11/20 13:00 [facility] (Rec: 06/11/20 13:48 [facility] [id number]) Knee Goniometric Range of Motion Knee Right Patient Position Supine Flexion Active (degrees) 134 Extension Passive (degrees) 5 Comments pain ext & flex Left Patient Position Supine Flexion Active (degrees) 135 Extension Passive (degrees) 4 Comments DF in knee ext position B 0 deg PT-OP-L Special Tests Start: 06/04/20 15:24 Freq: Status: Active Protocol: Document 06/11/20 13:00 [facility] (Rec: 06/11/20 13:48 [facility] [id number]) Special Tests Knee Special Tests Beach Chondromalacia Test Results neg-med glide did not help pain B Art's Test Test Results neg B [place] Comments pain in R knee, tightness in RF & quads & hip flexors B Varus- 25 Degrees Test Results neg B Straight Leg Raise Test Results 41 deg R, 60 deg L Valgus- 25 Degrees Test Results neg B Thessaly Test 5 Degrees Test Results neg B Joanie Test Test Results neg B Posterior Draw Test Results neg B Nancy's Test Results neg B Anterior Draw Test Results neg B PT-OP-M Strength Start: 06/04/20 15:24 Freq: Status: Active Protocol: Document 06/11/20 13:00 [facility] (Rec: 06/11/20 13:48 [facility] [id number]) Hip Strength Hip Manual Muscle Testing Right Flexion (L2) 4 Good Extension (S1) 3+ Fair+ Abduction 3+ Fair+ Adduction 4 Good External Rotation 3+ Fair+ Internal Rotation 3+ Fair+ Comments pain knee Left Flexion (L2) 4+ Good+ Extension (S1) 3+ Fair+ Abduction 4 Good Adduction 5 Normal External Rotation 3+ Fair+ Internal Rotation 3+ Fair+ Knee Strength Knee Manual Muscle Testing Right Flexion (S2) 3+ Fair+ Extension (L3) 3+ Fair+ Comments pain ext Left Flexion (S2) 4- Good- Extension (L3) 4- Good- Ankle/Foot Strength Ankle and Foot Manual Muscle Testing Right Dorsiflexion (L4) 4 Good Plantarflexion (S1) 4- Good- Inversion 5 Normal Eversion (S1) 5 Normal Comments 10 heel raises-pain in knee Left Dorsiflexion (L4) 5 Normal Plantarflexion (S1) 4+ Good+ Inversion 5 Normal Eversion (S1) 5 Normal Comments 15 heel raises-pain in knee PT-OP-Q Treatments Start: 06/04/20 15:24 Freq: Status: Active Protocol: Document 06/11/20 13:00 [facility] (Rec: 06/11/20 13:48 [facility] [id number]) Therapeutic Exercises Supine Exercises HS stretch Supine Exercise Name active Side bilateral Equipment Used towel Reps/Minutes 15 Standing Exercises calf stretch Standing Exercise Name stairs Side bilateral Reps/Minutes 30 sec PT-OP-T Assessment and Plan Start: 06/04/20 15:24 Freq: Status: Active Protocol: Document 06/11/20 13:00 [facility] (Rec: 06/11/20 13:48 [facility] [id number]) Physical Therapy Assessment Rehab Potential Rehabilitation Potential Good Evaluation Complexity Number of Personal Factors/Comorbidities 3 or More Number of Body Systems Impaired 4 or More Clinical Presentation at Evaluation Stable Impairments Impairments Activity Tolerance,Balance, Functional Activities, Functional Mobility,Gait,Pain, Posture,ROM,Soft Tissue Mobility,Strength Goals LEFS Welder Machine Operator Goal (LTG) Pt will improve score to 75/80 to allow full return to typical activities. LTG Duration 08/12/20 gait Welder Machine Operator Goal (LTG) Pt will show good gait mechanics with walking and running. LTG Duration 08/12/20 balance Short Term Goal (STG) Pt will be able to do SLS without pain or lat leaning for 15 sec. STG Duration 07/12/20 Long-Term Goal (LTG) Pt will be able to do SLS without pain or lat leaning for 30 sec. LTG Duration 08/12/20 strength Short Term Goal (STG) Pt will be indep with HEP. STG Duration 07/12/20 Welder Machine Operator Goal (LTG) Pt will score 5/5 LE strength in all planes and 3/5 LPM to show improved stability in order to inc pt's ability to play with son and do typical activties without pain. exercise Short Term Goal (STG) Pt will be able to go for 2 mile walk on flat terrain without increased pain. STG Duration 07/12/20 Long-Term Goal (LTG) Pt will be able to go for run for at least 1 mile without increased pain LTG Duration 08/12/20 Assessment Summary Assessment Pt presents with B knee pain ( R>L) and L calf pain w/c/o LBP w/nerve symptoms into RLE. Pt had increase in LB symptoms and start of radicular pain along w/B knee/calf pain after falling through a wood piece of a bridge when running this past summer. Pt has had increased falls since this incident and has had significant knee pain that limits her from being able to work out, squat down or do all typical things required with work and taking care of her child. Pt would benefit from skilled PT in order to work on improving strength & ROM of knee & hip & ankles, improving gait mechanics & balance and decreasing pain. Physical Therapy Plan Frequency and Duration Frequency of Treatment 1-2x/week Duration of Treatment 2 months Plan of Care Start Date 06/11/20 Plan of Care End Date 08/12/20 Therapeutic Interventions Therapeutic Interventions Aquatic Therapy,Balance Training,Gait Training,Home Exercise Program,Joint Mobilizations,Manual Therapy, Neuromuscular Re-education, Orthotic/Prosthetic Management ,Patient/Caregiver Education, Self-Care/Home Management,Soft Tissue Mobilization,Taping, Therapeutic Activities, Therapeutic Exercises Modalities Cold Pack/Ice Massage,Electric Stimulation,Hot Packs, Infrared Therapy,Iontophoresis ,Ultrasound Next Visit Focus/Plan Next Note Type Treatment Note Next Visit Plan self roll out, core stability exercsies, TKE w/tband, manual to tib fem joints & manual to STM to mm
--- NOTE | 2020-06-11 17:53 | PT.OPPOC ---
Physical, Occupational & Speech Therapy At [facility] Current Diagnoses Pain in right knee (06/11/20) Pain in left leg (06/11/20) Difficulty in walking, not elsewhere classified (06/11/20) Abnormal posture (06/11/20) Weakness (06/11/20) Unspecified injury of right lower leg, initial encounter (06/11/20) Visit Care Team Role Provider Type Ирина Guevara MD Attending Provider Physician Family Provider Primary Care Provider Referring Provider Specialty: Family Practice Address: [address] [place] [address], [address] Email: [email or web address] Plan Of Care PT-OP-T Assessment and Plan Start: 06/04/20 15:24 Freq: Status: Active Protocol: Document 06/11/20 13:00 [facility] (Rec: 06/11/20 13:48 [facility] [id number]) Physical Therapy Assessment Rehab Potential Rehabilitation Potential Good Evaluation Complexity Number of Personal Factors/Comorbidities 3 or More Number of Body Systems Impaired 4 or More Clinical Presentation at Evaluation Stable Impairments Impairments Activity Tolerance,Balance, Functional Activities, Functional Mobility,Gait,Pain, Posture,ROM,Soft Tissue Mobility,Strength Goals LEFS Assisted Goal (LTG) Pt will improve score to 75/80 to allow full return to typical activities. LTG Duration 08/12/20 gait Shake Sawyer Goal (LTG) Pt will show good gait mechanics with walking and running. LTG Duration 08/12/20 balance Short Term Goal (STG) Pt will be able to do SLS without pain or lat leaning for 15 sec. STG Duration 07/12/20 Shake [place]yer Goal (LTG) Pt will be able to do SLS without pain or lat leaning for 30 sec. LTG Duration 08/12/20 strength Short Term Goal (STG) Pt will be indep with HEP. STG Duration 07/12/20 Shake Sawyer Goal (LTG) Pt will score 5/5 LE strength in all planes and 3/5 LPM to show improved stability in order to inc pt's ability to play with son and do typical activties without pain. exercise Short Term Goal (STG) Pt will be able to go for 2 mile walk on flat terrain without increased pain. STG Duration 07/12/20 Shake Sawyer Goal (LTG) Pt will be able to go for run for at least 1 mile without increased pain LTG Duration 08/12/20 Assessment Summary Assessment Pt presents with B knee pain ( R>L) and L calf pain w/c/o LBP w/nerve symptoms into RLE. Pt had increase in LB symptoms and start of radicular pain along w/B knee/calf pain after falling through a wood piece of a bridge when running this past summer. Pt has had increased falls since this incident and has had significant knee pain that limits her from being able to work out, squat down or do all typical things required with work and taking care of her child. Pt would benefit from skilled PT in order to work on improving strength & ROM of knee & hip & ankles, improving gait mechanics & balance and decreasing pain. Physical Therapy Plan Frequency and Duration Frequency of Treatment 1-2x/week Duration of Treatment 2 months Plan of Care Start Date 06/11/20 Plan of Care End Date 08/12/20 Therapeutic Interventions Therapeutic Interventions Aquatic Therapy,Balance Training,Gait Training,Home Exercise Program,Joint Mobilizations,Manual Therapy, Neuromuscular Re-education, Orthotic/Prosthetic Management ,Patient/Caregiver Education, Self-Care/Home Management,Soft Tissue Mobilization,Taping, Therapeutic Activities, Therapeutic Exercises Modalities Cold Pack/Ice Massage,Electric Stimulation,Hot Packs, Infrared Therapy,Iontophoresis ,Ultrasound Next Visit Focus/Plan Next Note Type Treatment Note Next Visit Plan self roll out, core stability exercsies, TKE w/tband, manual to tib fem joints & manual to STM to mm Plan of Care Dates Plan of Care Start Date 06/11/20 Plan of Care End Date 08/12/20 Electronically Signed by: Ирина Sandoval, PT 06/11/20 [id number] Please Sign and Return: I have reviewed this Plan of Care and certify that the skilled therapy services above are required to meet the patient?s needs. Physician Signature Date Printed Name and Credentials Clinical Instructor Signature Printed Name and Credentials
--- NOTE | 2020-06-19 14:34 | PT.OTN ---
Current Diagnoses Pain in right knee (06/19/20) Pain in left leg (06/19/20) Difficulty in walking, not elsewhere classified (06/19/20) Abnormal posture (06/19/20) Weakness (06/19/20) Unspecified injury of right lower leg, initial encounter (06/19/20) Physical Therapy Treatment Note PT-OP-A Visit Information Start: 06/04/20 15:24 Freq: Status: Active Protocol: Document 06/19/20 14:30 [facility] (Rec: 06/19/20 14:34 [facility] [id number]) Out-Patient Physical Therapy Visit Information Visit Information Visit Type Treatment Note Visit Start Time 13:50 Visit Stop Time 14:30 Total Visit Minutes 40 Visit Number 2 Number of VISUALLY IMPAIRED TEACHER Visits 0 PT-OP-B Current Condition Start: 06/04/20 15:24 Freq: Status: Active Protocol: Document 06/11/20 13:00 [facility] (Rec: 06/11/20 13:48 [facility] [id number]) Current Condition History of Current Condition Onset Date December Current Complaints B knee pain & calves History of Current Condition During the summer, pt was running [employer] and 5 miles every day. A board broke and she landed with L leg through hole and R knee hit the gorund. Had to walk back 2 miles even though she was hurting. She had a big bruise. She keeps falling all the time recently. She loves to exercise and run but ever since nishant fell, she has been having trouble w/falling. She fell again on R knee the other day. Pt reports pain behind knee cap and feels like a pulled mm or something. Xrays showed no breaks. Pt has not been exercising much because nishant gets tired really fast and if she does too much her knee hurts so she cannot sleep. 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 pt reports sometimes has a hard time sleeping d/t R knee pain and shoulder problem that she tried PTf or but it didn't help. Pt reports after fall it feel slike R shoulder got worse and back pain got worse and R leg goes numb and cold sometimes. Pt reports knees and post ankles have been popping more. Pt likes to wear heels Prior Treatments and Tests Xrays-no issues, pain patches -help some Treatment Goals Patient/Caregiver Goals be able to walk and run, return to lifting, PT-OP-C Subjective Start: 06/04/20 15:24 Freq: Status: Active Protocol: Document 06/19/20 14:30 [facility] (Rec: 06/19/20 14:34 [facility] [id number]) OP-PT Subjective Patient Comments Patient Comments Pt reports she has been sore from exercises Patient Reported Progress Worse PT-OP-D Balance Start: 06/04/20 15:24 Freq: Status: Active Protocol: Document 06/11/20 13:00 [facility] (Rec: 06/11/20 13:48 [facility] [id number]) Balance Tests Single Limb Standing Single Limb- Right 10 sec w/a lot of UE movement & trunk twisting Single Limb- Left 23 sec w/some lat leaning PT-OP-F Manual Assessment Start: 06/04/20 15:24 Freq: Status: Active Protocol: Document 06/11/20 13:00 [facility] (Rec: 06/11/20 13:48 [facility] [id number]) Manual Assessments Soft Tissue Assessment Soft Tissue Mobility Assessment R tenderness to joint lines B, HS, quads & adductors & ITB tight; L calf & quad tigthness , tenderness B patellar tendons Joint Mobility Assessment Joint Mobility Assessment IR of B femurs, minor IR Of tibia PT-OP-G Mobility & Gait Start: 06/04/20 15:24 Freq: Status: Active Protocol: Document 06/11/20 13:00 [facility] (Rec: 06/11/20 13:48 [facility] [id number]) OP Gait Assessment Comments Gait Comments Pt has excessive pelvic rotation & dec push off PT-OP-J Posture/Palpation/Skin Start: 06/04/20 15:24 Freq: Status: Active Protocol: Document 06/11/20 13:00 [facility] (Rec: 06/11/20 13:48 [facility] [id number]) Posture Evaluation Nya Postural Classification System Lumbar Protective Mechanism Left AP 0 Lumbar Protective Mechanism Right AP 0 Lumbar Protective Mechanism Left PA 3 Lumbar Protective Mechanism Right PA 0 PT-OP-K Range of Motion Start: 06/04/20 15:24 Freq: Status: Active Protocol: Document 06/11/20 13:00 [facility] (Rec: 06/11/20 13:48 [facility] [id number]) Knee Goniometric Range of Motion Knee Right Patient Position Supine Flexion Active (degrees) 134 Extension Passive (degrees) 5 Comments pain ext & flex Left Patient Position Supine Flexion Active (degrees) 135 Extension Passive (degrees) 4 Comments DF in knee ext position B 0 deg PT-OP-L Special Tests Start: 06/04/20 15:24 Freq: Status: Active Protocol: Document 06/11/20 13:00 [facility] (Rec: 06/11/20 13:48 [facility] [id number]) Special Tests Knee Special Tests Beach Chondromalacia Test Results neg-med glide did not help pain B Art's Test Test Results neg B [place] Comments pain in R knee, tightness in RF & quads & hip flexors B Varus- 25 Degrees Test Results neg B Straight Leg Raise Test Results 41 deg R, 60 deg L Valgus- 25 Degrees Test Results neg B Thessaly Test 5 Degrees Test Results neg B Joanie Test Test Results neg B Posterior Draw Test Results neg B Nancy's Test Results neg B Anterior Draw Test Results neg B PT-OP-M Strength Start: 06/04/20 15:24 Freq: Status: Active Protocol: Document 06/11/20 13:00 [facility] (Rec: 06/11/20 13:48 [facility] [id number]) Hip Strength Hip Manual Muscle Testing Right Flexion (L2) 4 Good Extension (S1) 3+ Fair+ Abduction 3+ Fair+ Adduction 4 Good External Rotation 3+ Fair+ Internal Rotation 3+ Fair+ Comments pain knee Left Flexion (L2) 4+ Good+ Extension (S1) 3+ Fair+ Abduction 4 Good Adduction 5 Normal External Rotation 3+ Fair+ Internal Rotation 3+ Fair+ Knee Strength Knee Manual Muscle Testing Right Flexion (S2) 3+ Fair+ Extension (L3) 3+ Fair+ Comments pain ext Left Flexion (S2) 4- Good- Extension (L3) 4- Good- Ankle/Foot Strength Ankle and Foot Manual Muscle Testing Right Dorsiflexion (L4) 4 Good Plantarflexion (S1) 4- Good- Inversion 5 Normal Eversion (S1) 5 Normal Comments 10 heel raises-pain in knee Left Dorsiflexion (L4) 5 Normal Plantarflexion (S1) 4+ Good+ Inversion 5 Normal Eversion (S1) 5 Normal Comments 15 heel raises-pain in knee PT-OP-Q Treatments Start: 06/04/20 15:24 Freq: Status: Active Protocol: Document 06/19/20 14:30 [facility] (Rec: 06/19/20 14:34 [facility] [id number]) Therapeutic Exercises Supine Exercises quad set Supine Exercise Name w/towel under thigh Side right Reps/Minutes 5 sec x8 HS stretch Supine Exercise Name active Side right Equipment Used towel Reps/Minutes 10 Standing Exercises TKE Side bilateral Equipment Used L1 Reps/Minutes 20 ea Comments initilaly attempted L3 but too much resistance calf stretch Standing Exercise Name stairs Side bilateral Reps/Minutes 30 sec Manual Therapy Treatment Soft Tissue Mobilization ITB Body Location R Mobilization Type Rolling Intensity/Depth Moderate Body Position Hooklying quad Body Location R med quad & Adductors Mobilization Type Rolling Intensity/Depth Moderate Body Position Hooklying Joint Mobilizations tibfem Joint R Direction PA Grade II PT-OP-T Assessment and Plan Start: 06/04/20 15:24 Freq: Status: Active Protocol: Document 06/19/20 14:30 [facility] (Rec: 06/19/20 14:34 [facility] [id number]) Physical Therapy Assessment Goals LEFS Engraver Machine Goal (LTG) Pt will improve score to 75/80 to allow full return to typical activities. LTG Duration 08/12/20 gait Half-Way Goal (LTG) Pt will show good gait mechanics with walking and running. LTG Duration 08/12/20 balance Short Term Goal (STG) Pt will be able to do SLS without pain or lat leaning for 15 sec. STG Duration 07/12/20 Engraver Machine Goal (LTG) Pt will be able to do SLS without pain or lat leaning for 30 sec. LTG Duration 08/12/20 strength Short Term Goal (STG) Pt will be indep with HEP. STG Duration 07/12/20 Half-Way Goal (LTG) Pt will score 5/5 LE strength in all planes and 3/5 LPM to show improved stability in order to inc pt's ability to play with son and do typical activties without pain. exercise Short Term Goal (STG) Pt will be able to go for 2 mile walk on flat terrain without increased pain. STG Duration 07/12/20 Engraver Machine Goal (LTG) Pt will be able to go for run for at least 1 mile without increased pain LTG Duration 08/12/20 Assessment Summary Assessment Pt ahd to be reeducated on proper form of exercises and after she was, she ddi not have pain with exercises. Pt was doing heel raises on stair vs stretch and bending knee too much w/HS stretch. Pt ablet o tolerated new ext exercises without pain. Physical Therapy Plan Frequency and Duration Frequency of Treatment 1-2x/week Duration of Treatment 2 months Plan of Care Start Date 06/11/20 Plan of Care End Date 08/12/20 Next Visit Focus/Plan Next Note Type Treatment Note Next Visit Plan self roll out, core stability exercsies, review TKE w/tband, manual to tib fem joints & manual to STM to mm, try laser treatment
--- NOTE | 2020-06-24 15:25 | PT.OTN ---
Current Diagnoses Pain in right knee (06/24/20) Pain in left leg (06/24/20) Difficulty in walking, not elsewhere classified (06/24/20) Abnormal posture (06/24/20) Weakness (06/24/20) Unspecified injury of right lower leg, initial encounter (06/24/20) Physical Therapy Treatment Note PT-OP-A Visit Information Start: 06/04/20 15:24 Freq: Status: Active Protocol: Document 06/24/20 14:34 [facility] (Rec: 06/24/20 15:24 [facility] [id number]) Out-Patient Physical Therapy Visit Information Visit Information Visit Type Treatment Note Visit Start Time 14:34 Visit Stop Time 15:15 Total Visit Minutes 41 Visit Number 3 Number of BIOMEDICAL REPAIR TECHNICIAN Visits 0 PT-OP-B Current Condition Start: 06/04/20 15:24 Freq: Status: Active Protocol: Document 06/11/20 13:00 [facility] (Rec: 06/11/20 13:48 [facility] [id number]) Current Condition History of Current Condition Onset Date December Current Complaints B knee pain & calves History of Current Condition During the summer, pt was running [employer] and 5 miles every day. A board broke and she landed with L leg through hole and R knee hit the gorund. Had to walk back 2 miles even though she was hurting. She had a big bruise. She keeps falling all the time recently. She loves to exercise and run but ever since nishant fell, she has been having trouble w/falling. She fell again on R knee the other day. Pt reports pain behind knee cap and feels like a pulled mm or something. Xrays showed no breaks. Pt has not been exercising much because nishant gets tired really fast and if she does too much her knee hurts so she cannot sleep. 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 pt reports sometimes has a hard time sleeping d/t R knee pain and shoulder problem that she tried PTf or but it didn't help. Pt reports after fall it feel slike R shoulder got worse and back pain got worse and R leg goes numb and cold sometimes. Pt reports knees and post ankles have been popping more. Pt likes to wear heels Prior Treatments and Tests Xrays-no issues, pain patches -help some Treatment Goals Patient/Caregiver Goals be able to walk and run, return to lifting, PT-OP-C Subjective Start: 06/04/20 15:24 Freq: Status: Active Protocol: Document 06/24/20 14:34 [facility] (Rec: 06/24/20 15:24 [facility] [id number]) OP-PT Subjective Patient Comments Patient Comments Pt reprots more pain after session but subsides after a couple hours. Notes tape felt really good. Notes she PT-OP-D Balance Start: 06/04/20 15:24 Freq: Status: Active Protocol: Document 06/11/20 13:00 [facility] (Rec: 06/11/20 13:48 [facility] [id number]) Balance Tests Single Limb Standing Single Limb- Right 10 sec w/a lot of UE movement & trunk twisting Single Limb- Left 23 sec w/some lat leaning PT-OP-F Manual Assessment Start: 06/04/20 15:24 Freq: Status: Active Protocol: Document 06/11/20 13:00 [facility] (Rec: 06/11/20 13:48 [facility] [id number]) Manual Assessments Soft Tissue Assessment Soft Tissue Mobility Assessment R tenderness to joint lines B, HS, quads & adductors & ITB tight; L calf & quad tigthness , tenderness B patellar tendons Joint Mobility Assessment Joint Mobility Assessment IR of B femurs, minor IR Of tibia PT-OP-G Mobility & Gait Start: 06/04/20 15:24 Freq: Status: Active Protocol: Document 06/11/20 13:00 [facility] (Rec: 06/11/20 13:48 [facility] [id number]) OP Gait Assessment Comments Gait Comments Pt has excessive pelvic rotation & dec push off PT-OP-J Posture/Palpation/Skin Start: 06/04/20 15:24 Freq: Status: Active Protocol: Document 06/11/20 13:00 [facility] (Rec: 06/11/20 13:48 [facility] [id number]) Posture Evaluation Nya Postural Classification System Lumbar Protective Mechanism Left AP 0 Lumbar Protective Mechanism Right AP 0 Lumbar Protective Mechanism Left PA 3 Lumbar Protective Mechanism Right PA 0 PT-OP-K Range of Motion Start: 06/04/20 15:24 Freq: Status: Active Protocol: Document 06/11/20 13:00 [facility] (Rec: 06/11/20 13:48 [facility] [id number]) Knee Goniometric Range of Motion Knee Right Patient Position Supine Flexion Active (degrees) 134 Extension Passive (degrees) 5 Comments pain ext & flex Left Patient Position Supine Flexion Active (degrees) 135 Extension Passive (degrees) 4 Comments DF in knee ext position B 0 deg PT-OP-L Special Tests Start: 06/04/20 15:24 Freq: Status: Active Protocol: Document 06/11/20 13:00 [facility] (Rec: 06/11/20 13:48 [facility] [id number]) Special Tests Knee Special Tests [place] Chondromalacia Test Results neg-med glide did not help pain B Art's Test Test Results neg B [place] Comments pain in R knee, tightness in RF & quads & hip flexors B Varus- 25 Degrees Test Results neg B Straight Leg Raise Test Results 41 deg R, 60 deg L Valgus- 25 Degrees Test Results neg B Thessaly Test 5 Degrees Test Results neg B Joanie Test Test Results neg B Posterior Draw Test Results neg B Nancy's Test Results neg B Anterior Draw Test Results neg B PT-OP-M Strength Start: 06/04/20 15:24 Freq: Status: Active Protocol: Document 06/11/20 13:00 [facility] (Rec: 06/11/20 13:48 [facility] [id number]) Hip Strength Hip Manual Muscle Testing Right Flexion (L2) 4 Good Extension (S1) 3+ Fair+ Abduction 3+ Fair+ Adduction 4 Good External Rotation 3+ Fair+ Internal Rotation 3+ Fair+ Comments pain knee Left Flexion (L2) 4+ Good+ Extension (S1) 3+ Fair+ Abduction 4 Good Adduction 5 Normal External Rotation 3+ Fair+ Internal Rotation 3+ Fair+ Knee Strength Knee Manual Muscle Testing Right Flexion (S2) 3+ Fair+ Extension (L3) 3+ Fair+ Comments pain ext Left Flexion (S2) 4- Good- Extension (L3) 4- Good- Ankle/Foot Strength Ankle and Foot Manual Muscle Testing Right Dorsiflexion (L4) 4 Good Plantarflexion (S1) 4- Good- Inversion 5 Normal Eversion (S1) 5 Normal Comments 10 heel raises-pain in knee Left Dorsiflexion (L4) 5 Normal Plantarflexion (S1) 4+ Good+ Inversion 5 Normal Eversion (S1) 5 Normal Comments 15 heel raises-pain in knee PT-OP-Q Treatments Start: 06/04/20 15:24 Freq: Status: Active Protocol: Document 06/24/20 14:34 [facility] (Rec: 06/24/20 15:24 [facility] [id number]) Therapeutic Exercises Supine Exercises SLR Reps/Minutes stoppped after 2 d/t pain SAQ Side right Equipment Used foam roll Reps/Minutes 10 quad set Supine Exercise Name w/towel under thigh Side right Reps/Minutes 5 sec x5 HS stretch Supine Exercise Name active Side right Equipment Used towel Reps/Minutes 5 Standing Exercises TKE Side right Equipment Used L1 Reps/Minutes 20 ea Manual Therapy Treatment Soft Tissue Mobilization HS Body Location R Mobilization Type Rolling Intensity/Depth Moderate Joint Mobilizations tibfem Joint R Direction AP on foam rolls & IR w/flex/ ext Grade II Taping KT tape Body Location R knee Treatment Focus med patellar glideing & quad activation Type of Tape Kinesio Tape Skin Inspection good PT-OP-T Assessment and Plan Start: 06/04/20 15:24 Freq: Status: Active Protocol: Document 06/24/20 14:34 [facility] (Rec: 06/24/20 15:24 [facility] [id number]) Physical Therapy Assessment Goals LEFS Custodial Goal (LTG) Pt will improve score to 75/80 to allow full return to typical activities. LTG Duration 08/12/20 gait Propulsion Generator Repairer Goal (LTG) Pt will show good gait mechanics with walking and running. LTG Duration 08/12/20 balance Short Term Goal (STG) Pt will be able to do SLS without pain or lat leaning for 15 sec. STG Duration 07/12/20 Custodial Goal (LTG) Pt will be able to do SLS without pain or lat leaning for 30 sec. LTG Duration 08/12/20 strength Short Term Goal (STG) Pt will be indep with HEP. STG Duration 1 Propulsion Generator Repairer Goal (LTG) Pt will score 5/5 LE strength in all planes and 3/5 LPM to show improved stability in order to inc pt's ability to play with son and do typical activties without pain. exercise Short Term Goal (STG) Pt will be able to go for 2 mile walk on flat terrain without increased pain. STG Duration 1 Custodial Goal (LTG) Pt will be able to go for run for at least 1 mile without increased pain LTG Duration 08/12/20 Assessment Summary Assessment Pt able to tolerate exercises with minimal pain except SLR painful so did not add that exercise. Pt has not tried bike at home so will plan to try in clinic and educate pt how to set up next session. She does require cueing during TKE for good form though. Physical Therapy Plan Frequency and Duration Frequency of Treatment 1-2x/week Duration of Treatment 2 months Plan of Care Start Date 06/11/20 Plan of Care End Date 08/12/20 Next Visit Focus/Plan Next Note Type Treatment Note Next Visit Plan try bike, core stability exercises, review TKE & SAQ, cont to work on manual, try laser
--- NOTE | 2020-06-26 14:48 | PT.OTN ---
Current Diagnoses Pain in right knee (06/26/20) Pain in left leg (06/26/20) Difficulty in walking, not elsewhere classified (06/26/20) Abnormal posture (06/26/20) Weakness (06/26/20) Unspecified injury of right lower leg, initial encounter (06/26/20) Physical Therapy Treatment Note PT-OP-A Visit Information Start: 06/04/20 15:24 Freq: Status: Active Protocol: Document 06/26/20 13:51 [facility] (Rec: 06/26/20 14:48 [facility] [id number]) Out-Patient Physical Therapy Visit Information Visit Information Visit Type Treatment Note Visit Start Time 13:50 Visit Stop Time 14:30 Total Visit Minutes 40 Visit Number 4 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 A board broke and she landed with L leg through hole and R knee hit the gorund. Had to walk back 2 miles even though she was hurting. She had a big bruise. She keeps falling all the time recently. She loves to exercise and run but ever since nishant fell, she has been having trouble w/falling. She fell again on R knee the other day. Pt reports pain behind knee cap and feels like a pulled mm or something. Xrays showed no breaks. Pt has not been exercising much because nishant gets tired really fast and if she does too much her knee hurts so she cannot sleep. 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 pt reports sometimes has a hard time sleeping d/t R knee pain and shoulder problem that she tried PTf or but it didn't help. Pt reports after fall it feel slike R shoulder got worse and back pain got worse and R leg goes numb and cold sometimes. Pt reports knees and post ankles have been popping more. Pt likes to wear heels Prior Treatments and Tests Xrays-no issues, pain patches -help some Treatment Goals Patient/Caregiver Goals be able to walk and run, return to lifting, PT-OP-C Subjective Start: 06/04/20 15:24 Freq: Status: Active Protocol: Document 06/26/20 13:51 [facility] (Rec: 06/26/20 14:48 [facility] [id number]) OP-PT Subjective Patient Comments Patient Comments Pt reports she thinks she is doing better Patient Reported Progress Improving PT-OP-D Balance Start: 06/04/20 15:24 Freq: Status: Active Protocol: Document 06/11/20 13:00 [facility] (Rec: 06/11/20 13:48 [facility] [id number]) Balance Tests Single Limb Standing Single Limb- Right 10 sec w/a lot of UE movement & trunk twisting Single Limb- Left 23 sec w/some lat leaning PT-OP-F Manual Assessment Start: 06/04/20 15:24 Freq: Status: Active Protocol: Document 06/11/20 13:00 [facility] (Rec: 06/11/20 13:48 [facility] [id number]) Manual Assessments Soft Tissue Assessment Soft Tissue Mobility Assessment R tenderness to joint lines B, HS, quads & adductors & ITB tight; L calf & quad tigthness , tenderness B patellar tendons Joint Mobility Assessment Joint Mobility Assessment IR of B femurs, minor IR Of tibia PT-OP-G Mobility & Gait Start: 06/04/20 15:24 Freq: Status: Active Protocol: Document 06/11/20 13:00 [facility] (Rec: 06/11/20 13:48 [facility] [id number]) OP Gait Assessment Comments Gait Comments Pt has excessive pelvic rotation & dec push off PT-OP-J Posture/Palpation/Skin Start: 06/04/20 15:24 Freq: Status: Active Protocol: Document 06/11/20 13:00 [facility] (Rec: 06/11/20 13:48 [facility] [id number]) Posture Evaluation Nya Postural Classification System Lumbar Protective Mechanism Left AP 0 Lumbar Protective Mechanism Right AP 0 Lumbar Protective Mechanism Left PA 3 Lumbar Protective Mechanism Right PA 0 PT-OP-K Range of Motion Start: 06/04/20 15:24 Freq: Status: Active Protocol: Document 06/11/20 13:00 [facility] (Rec: 06/11/20 13:48 [facility] [id number]) Knee Goniometric Range of Motion Knee Right Patient Position Supine Flexion Active (degrees) 134 Extension Passive (degrees) 5 Comments pain ext & flex Left Patient Position Supine Flexion Active (degrees) 135 Extension Passive (degrees) 4 Comments DF in knee ext position B 0 deg PT-OP-L Special Tests Start: 06/04/20 15:24 Freq: Status: Active Protocol: Document 06/11/20 13:00 [facility] (Rec: 06/11/20 13:48 [facility] [id number]) Special Tests Knee Special Tests Beach Chondromalacia Test Results neg-med glide did not help pain B Art's Test Test Results neg B [place]o Comments pain in R knee, tightness in RF & quads & hip flexors B Varus- 25 Degrees Test Results neg B Straight Leg Raise Test Results 41 deg R, 60 deg L Valgus- 25 Degrees Test Results neg B Thessaly Test 5 Degrees Test Results neg B Joanie Test Test Results neg B Posterior Draw Test Results neg B Nancy's Test Results neg B Anterior Draw Test Results neg B PT-OP-M Strength Start: 06/04/20 15:24 Freq: Status: Active Protocol: Document 06/11/20 13:00 [facility] (Rec: 06/11/20 13:48 [facility] [id number]) Hip Strength Hip Manual Muscle Testing Right Flexion (L2) 4 Good Extension (S1) 3+ Fair+ Abduction 3+ Fair+ Adduction 4 Good External Rotation 3+ Fair+ Internal Rotation 3+ Fair+ Comments pain knee Left Flexion (L2) 4+ Good+ Extension (S1) 3+ Fair+ Abduction 4 Good Adduction 5 Normal External Rotation 3+ Fair+ Internal Rotation 3+ Fair+ Knee Strength Knee Manual Muscle Testing Right Flexion (S2) 3+ Fair+ Extension (L3) 3+ Fair+ Comments pain ext Left Flexion (S2) 4- Good- Extension (L3) 4- Good- Ankle/Foot Strength Ankle and Foot Manual Muscle Testing Right Dorsiflexion (L4) 4 Good Plantarflexion (S1) 4- Good- Inversion 5 Normal Eversion (S1) 5 Normal Comments 10 heel raises-pain in knee Left Dorsiflexion (L4) 5 Normal Plantarflexion (S1) 4+ Good+ Inversion 5 Normal Eversion (S1) 5 Normal Comments 15 heel raises-pain in knee PT-OP-Q Treatments Start: 06/04/20 15:24 Freq: Status: Active Protocol: Document 06/26/20 13:51 [facility] (Rec: 06/26/20 14:48 [facility] [id number]) Cardio Equipment Bicycle (Upright) Duration (Minutes) 1 Seat Position 3 Other pt had tight pants on so uncomfortable going around- no pain Gym Equipment Therapeutic Ball seated Ball Size/Color 65 CM Comments set up on ball and educated on positioning Therapeutic Exercises Standing Exercises mini squat Standing Exercise Name wall squat w/ball Reps/Minutes 2x5 Comments comfortable range Manual Therapy Treatment Soft Tissue Mobilization HS Body Location R Mobilization Type Rolling Intensity/Depth Moderate ITB Body Location R Mobilization Type Rolling Intensity/Depth Moderate Body Position Hooklying quad Body Location R med quad and lat quad border Mobilization Type Rolling Intensity/Depth Moderate Body Position Hooklying Joint Mobilizations tibfem Joint R Direction AP over foam & PA Grade II Self-Care/Home Management Treatment Education Other Education encouraged to do bike at home and cont exercises & rolling pin to thigh mm. PT-OP-T Assessment and Plan Start: 06/04/20 15:24 Freq: Status: Active Protocol: Document 06/26/20 13:51 [facility] (Rec: 06/26/20 14:48 [facility] [id number]) Physical Therapy Assessment Goals LEFS Alf Goal (LTG) Pt will improve score to 75/80 to allow full return to typical activities. LTG Duration 08/12/20 gait Steel Plate Printer Goal (LTG) Pt will show good gait mechanics with walking and running. LTG Duration 08/12/20 balance Short Term Goal (STG) Pt will be able to do SLS without pain or lat leaning for 15 sec. STG Duration 07/12/20 Steel Plate Printer Goal (LTG) Pt will be able to do SLS without pain or lat leaning for 30 sec. LTG Duration 08/12/20 strength Short Term Goal (STG) Pt will be indep with HEP. STG Duration 07/12/20 Steel Plate Printer Goal (LTG) Pt will score 5/5 LE strength in all planes and 3/5 LPM to show improved stability in order to inc pt's ability to play with son and do typical activties without pain. exercise Short Term Goal (STG) Pt will be able to go for 2 mile walk on flat terrain without increased pain. STG Duration 1 Steel Plate Printer Goal (LTG) Pt will be able to go for run for at least 1 mile without increased pain LTG Duration 08/12/20 Assessment Summary Assessment Pt feels dec pain into knee w/ knee flex when hip is in ER or when fascial release of femur into ER. Pt able to lay knee into ext today for about 1 min but afte that ,started to get pain into ant knee. Physical Therapy Plan Frequency and Duration Frequency of Treatment 1-2x/week Duration of Treatment 2 months Plan of Care Start Date 06/11/20 Plan of Care End Date 08/12/20 Next Visit Focus/Plan Next Note Type Treatment Note Next Visit Plan cont to work manual treatment w/ER fascial mobilization of femur
--- NOTE | 2020-07-03 14:07 | PT.OTN ---
Current Diagnoses Pain in right knee (07/03/20) Pain in left leg (07/03/20) Difficulty in walking, not elsewhere classified (07/03/20) Abnormal posture (07/03/20) Weakness (07/03/20) Unspecified injury of right lower leg, initial encounter (07/03/20) Physical Therapy Treatment Note PT-OP-A Visit Information Start: 06/04/20 15:24 Freq: Status: Active Protocol: Document 07/03/20 13:02 [facility] (Rec: 07/03/20 14:07 [facility] [id number]) Out-Patient Physical Therapy Visit Information Visit Information Visit Type Treatment Note Visit Start Time 13:03 Visit Stop Time 13:54 Total Visit Minutes 51 Visit Number 5 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 A board broke and she landed with L leg through hole and R knee hit the gorund. Had to walk back 2 miles even though she was hurting. She had a big bruise. She keeps falling all the time recently. She loves to exercise and run but ever since nishant fell, she has been having trouble w/falling. She fell again on R knee the other day. Pt reports pain behind knee cap and feels like a pulled mm or something. Xrays showed no breaks. Pt has not been exercising much because nishant gets tired really fast and if she does too much her knee hurts so she cannot sleep. 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 pt reports sometimes has a hard time sleeping d/t R knee pain and shoulder problem that she tried PTf or but it didn't help. Pt reports after fall it feel slike R shoulder got worse and back pain got worse and R leg goes numb and cold sometimes. Pt reports knees and post ankles have been popping more. Pt likes to wear heels Prior Treatments and Tests Xrays-no issues, pain patches -help some Treatment Goals Patient/Caregiver Goals be able to walk and run, return to lifting, PT-OP-C Subjective Start: 06/04/20 15:24 Freq: Status: Active Protocol: Document 07/03/20 13:02 [facility] (Rec: 07/03/20 14:07 [facility] [id number]) OP-PT Subjective Patient Comments Patient Comments Pt reprots compliancew ith HEP . Notes she feels good when leaving PT but has bene painful past 2 days. Excited to be at PT PT-OP-D Balance Start: 06/04/20 15:24 Freq: Status: Active Protocol: Document 06/11/20 13:00 [facility] (Rec: 06/11/20 13:48 [facility] [id number]) Balance Tests Single Limb Standing Single Limb- Right 10 sec w/a lot of UE movement & trunk twisting Single Limb- Left 23 sec w/some lat leaning PT-OP-F Manual Assessment Start: 06/04/20 15:24 Freq: Status: Active Protocol: Document 06/11/20 13:00 [facility] (Rec: 06/11/20 13:48 [facility] [id number]) Manual Assessments Soft Tissue Assessment Soft Tissue Mobility Assessment R tenderness to joint lines B, HS, quads & adductors & ITB tight; L calf & quad tigthness , tenderness B patellar tendons Joint Mobility Assessment Joint Mobility Assessment IR of B femurs, minor IR Of tibia PT-OP-G Mobility & Gait Start: 06/04/20 15:24 Freq: Status: Active Protocol: Document 06/11/20 13:00 [facility] (Rec: 06/11/20 13:48 [facility] [id number]) OP Gait Assessment Comments Gait Comments Pt has excessive pelvic rotation & dec push off PT-OP-J Posture/Palpation/Skin Start: 06/04/20 15:24 Freq: Status: Active Protocol: Document 06/11/20 13:00 [facility] (Rec: 06/11/20 13:48 [facility] [id number]) Posture Evaluation Nya Postural Classification System Lumbar Protective Mechanism Left AP 0 Lumbar Protective Mechanism Right AP 0 Lumbar Protective Mechanism Left PA 3 Lumbar Protective Mechanism Right PA 0 PT-OP-K Range of Motion Start: 06/04/20 15:24 Freq: Status: Active Protocol: Document 06/11/20 13:00 [facility] (Rec: 06/11/20 13:48 [facility] [id number]) Knee Goniometric Range of Motion Knee Right Patient Position Supine Flexion Active (degrees) 134 Extension Passive (degrees) 5 Comments pain ext & flex Left Patient Position Supine Flexion Active (degrees) 135 Extension Passive (degrees) 4 Comments DF in knee ext position B 0 deg PT-OP-L Special Tests Start: 06/04/20 15:24 Freq: Status: Active Protocol: Document 06/11/20 13:00 [facility] (Rec: 06/11/20 13:48 [facility] [id number]) Special Tests Knee Special Tests Beach Chondromalacia Test Results neg-med glide did not help pain B Art's Test Test Results neg B [place] Comments pain in R knee, tightness in RF & quads & hip flexors B Varus- 25 Degrees Test Results neg B Straight Leg Raise Test Results 41 deg R, 60 deg L Valgus- 25 Degrees Test Results neg B Thessaly Test 5 Degrees Test Results neg B Joanie Test Test Results neg B Posterior Draw Test Results neg B Nancy's Test Results neg B Anterior Draw Test Results neg B PT-OP-M Strength Start: 06/04/20 15:24 Freq: Status: Active Protocol: Document 06/11/20 13:00 [facility] (Rec: 06/11/20 13:48 [facility] [id number]) Hip Strength Hip Manual Muscle Testing Right Flexion (L2) 4 Good Extension (S1) 3+ Fair+ Abduction 3+ Fair+ Adduction 4 Good External Rotation 3+ Fair+ Internal Rotation 3+ Fair+ Comments pain knee Left Flexion (L2) 4+ Good+ Extension (S1) 3+ Fair+ Abduction 4 Good Adduction 5 Normal External Rotation 3+ Fair+ Internal Rotation 3+ Fair+ Knee Strength Knee Manual Muscle Testing Right Flexion (S2) 3+ Fair+ Extension (L3) 3+ Fair+ Comments pain ext Left Flexion (S2) 4- Good- Extension (L3) 4- Good- Ankle/Foot Strength Ankle and Foot Manual Muscle Testing Right Dorsiflexion (L4) 4 Good Plantarflexion (S1) 4- Good- Inversion 5 Normal Eversion (S1) 5 Normal Comments 10 heel raises-pain in knee Left Dorsiflexion (L4) 5 Normal Plantarflexion (S1) 4+ Good+ Inversion 5 Normal Eversion (S1) 5 Normal Comments 15 heel raises-pain in knee PT-OP-Q Treatments Start: 06/04/20 15:24 Freq: Status: Active Protocol: Document 07/03/20 13:02 [facility] (Rec: 07/03/20 14:07 [facility] [id number]) Therapeutic Exercises Prone Exercises ext Prone Exercise Name hip ext Side bilateral Reps/Minutes 5 Manual Therapy Treatment Soft Tissue Mobilization glutes Body Location R Mobilization Type Sustained Pressure Intensity/Depth Moderate adductors Body Location R Mobilization Type Rolling Intensity/Depth Moderate Body Position Hooklying HS Body Location R Mobilization Type Rolling Intensity/Depth Moderate ITB Body Location R Mobilization Type Rolling Intensity/Depth Moderate Body Position Hooklying quad Body Location R med quad and lat quad border Mobilization Type Rolling Intensity/Depth Moderate Body Position Hooklying Joint Mobilizations hip Joint R Direction inf glide and hip on axis ER FM tibfem Direction IR w/flex/ext PT-OP-T Assessment and Plan Start: 06/04/20 15:24 Freq: Status: Active Protocol: Document 07/03/20 13:02 [facility] (Rec: 07/03/20 14:07 [facility] [id number]) Physical Therapy Assessment Goals LEFS Waist Cutter Goal (LTG) Pt will improve score to 75/80 to allow full return to typical activities. LTG Duration 08/12/20 gait Intermediate Goal (LTG) Pt will show good gait mechanics with walking and running. LTG Duration 08/12/20 balance Short Term Goal (STG) Pt will be able to do SLS without pain or lat leaning for 15 sec. STG Duration 07/12/20 Intermediate Goal (LTG) Pt will be able to do SLS without pain or lat leaning for 30 sec. LTG Duration 08/12/20 strength Short Term Goal (STG) Pt will be indep with HEP. STG Duration 07/12/20 Intermediate Goal (LTG) Pt will score 5/5 LE strength in all planes and 3/5 LPM to show improved stability in order to inc pt's ability to play with son and do typical activties without pain. exercise Short Term Goal (STG) Pt will be able to go for 2 mile walk on flat terrain without increased pain. STG Duration 07/12/20 Intermediate Goal (LTG) Pt will be able to go for run for at least 1 mile without increased pain LTG Duration 08/12/20 Assessment Summary Assessment Pt feels comfortable only when in slight flex and ER. Hip appears to have dec motion and likely rotary forces of hip affect her knee pain. She had imrpoved hip range into ER after manual treatment and awas able to flex more w/o c/o pain in prone position. She had inc difficulty with R hip ext in prone with significant weakness. Physical Therapy Plan Frequency and Duration Frequency of Treatment 1-2x/week Duration of Treatment 2 months Plan of Care Start Date 06/11/20 Plan of Care End Date 08/12/20 Next Visit Focus/Plan Next Note Type Treatment Note Next Visit Plan cont to work manual treatment w/ER fascial mobilization of femur, try to work on progression of hip strengthening, tball bridge & tball knee flex
--- NOTE | 2020-07-10 14:51 | PT-OP ANOTE ---
Called and left message with reminder of next appt 07/14/20
--- NOTE | 2020-07-14 14:30 | PT.OTN ---
Current Diagnoses Pain in right knee (07/14/20) Pain in left leg (07/14/20) Difficulty in walking, not elsewhere classified (07/14/20) Abnormal posture (07/14/20) Weakness (07/14/20) Unspecified injury of right lower leg, initial encounter (07/14/20) Physical Therapy Treatment Note PT-OP-A Visit Information Start: 06/04/20 15:24 Freq: Status: Active Protocol: Document 07/14/20 16:36 MA (Rec: 07/14/20 17:07 MA [id number]) Out-Patient Physical Therapy Visit Information Visit Information Visit Type Treatment Note Visit Note pt arrived late to PT Visit Start Time 13:57 Visit Stop Time 14:29 Visit Number 6 Number of E [employer] 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 A board broke and she landed with L leg through hole and R knee hit the gorund. Had to walk back 2 miles even though she was hurting. She had a big bruise. She keeps falling all the time recently. She loves to exercise and run but ever since seliliana fell, she has been having trouble w/falling. She fell again on R knee the other day. Pt reports pain behind knee cap and feels like a pulled mm or something. Xrays showed no breaks. Pt has not been exercising much because nishant gets tired really fast and if she does too much her knee hurts so she cannot sleep. 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 pt reports sometimes has a hard time sleeping d/t R knee pain and shoulder problem that she tried PTf or but it didn't help. Pt reports after fall it feel slike R shoulder got worse and back pain got worse and R leg goes numb and cold sometimes. Pt reports knees and post ankles have been popping more. Pt likes to wear heels Prior Treatments and Tests Xrays-no issues, pain patches -help some Treatment Goals Patient/Caregiver Goals be able to walk and run, return to lifting, PT-OP-C Subjective Start: 06/04/20 15:24 Freq: Status: Active Protocol: Document 07/14/20 16:36 MA (Rec: 07/14/20 17:07 MA [id number]) OP-PT Subjective Patient Comments Patient Comments Pt states she has been having more pain lately and admits she only does the HEP exercises that don't hurt her . When asked what hurts she says SLR exercise and rolling pin. She arrives with heels and long skirt on. Had pt change into hospital shorts upon arrival PT-OP-D Balance Start: 06/04/20 15:24 Freq: Status: Active Protocol: Document 06/11/20 13:00 [facility] (Rec: 06/11/20 13:48 [facility] [id number]) Balance Tests Single Limb Standing Single Limb- Right 10 sec w/a lot of UE movement & trunk twisting Single Limb- Left 23 sec w/some lat leaning PT-OP-F Manual Assessment Start: 06/04/20 15:24 Freq: Status: Active Protocol: Document 06/11/20 13:00 [facility] (Rec: 06/11/20 13:48 [facility] [id number]) Manual Assessments Soft Tissue Assessment Soft Tissue Mobility Assessment R tenderness to joint lines B, HS, quads & adductors & ITB tight; L calf & quad tigthness , tenderness B patellar tendons Joint Mobility Assessment Joint Mobility Assessment IR of B femurs, minor IR Of tibia PT-OP-G Mobility & Gait Start: 06/04/20 15:24 Freq: Status: Active Protocol: Document 06/11/20 13:00 [facility] (Rec: 06/11/20 13:48 [facility] [id number]) OP Gait Assessment Comments Gait Comments Pt has excessive pelvic rotation & dec push off PT-OP-J Posture/Palpation/Skin Start: 06/04/20 15:24 Freq: Status: Active Protocol: Document 06/11/20 13:00 [facility] (Rec: 06/11/20 13:48 [facility] [id number]) Posture Evaluation [facility] Postural Classification System Lumbar Protective Mechanism Left AP 0 Lumbar Protective Mechanism Right AP 0 Lumbar Protective Mechanism Left PA 3 Lumbar Protective Mechanism Right PA 0 PT-OP-K Range of Motion Start: 06/04/20 15:24 Freq: Status: Active Protocol: Document 06/11/20 13:00 [facility] (Rec: 06/11/20 13:48 [facility] [id number]) Knee Goniometric Range of Motion Knee Right Patient Position Supine Flexion Active (degrees) 134 Extension Passive (degrees) 5 Comments pain ext & flex Left Patient Position Supine Flexion Active (degrees) 135 Extension Passive (degrees) 4 Comments DF in knee ext position B 0 deg PT-OP-L Special Tests Start: 06/04/20 15:24 Freq: Status: Active Protocol: Document 06/11/20 13:00 [facility] (Rec: 06/11/20 13:48 [facility] [id number]) Special Tests Knee Special Tests [place] Chondromalacia Test Results neg-med glide did not help pain B Art's Test Test Results neg B [place] Comments pain in R knee, tightness in RF & quads & hip flexors B Varus- 25 Degrees Test Results neg B Straight Leg Raise Test Results 41 deg R, 60 deg L Valgus- 25 Degrees Test Results neg B Thessaly Test 5 Degrees Test Results neg B Joanie Test Test Results neg B Posterior Draw Test Results neg B Nancy's Test Results neg B Anterior Draw Test Results neg B PT-OP-M Strength Start: 06/04/20 15:24 Freq: Status: Active Protocol: Document 06/11/20 13:00 [facility] (Rec: 06/11/20 13:48 [facility] [id number]) Hip Strength Hip Manual Muscle Testing Right Flexion (L2) 4 Good Extension (S1) 3+ Fair+ Abduction 3+ Fair+ Adduction 4 Good External Rotation 3+ Fair+ Internal Rotation 3+ Fair+ Comments pain knee Left Flexion (L2) 4+ Good+ Extension (S1) 3+ Fair+ Abduction 4 Good Adduction 5 Normal External Rotation 3+ Fair+ Internal Rotation 3+ Fair+ Knee Strength Knee Manual Muscle Testing Right Flexion (S2) 3+ Fair+ Extension (L3) 3+ Fair+ Comments pain ext Left Flexion (S2) 4- Good- Extension (L3) 4- Good- Ankle/Foot Strength Ankle and Foot Manual Muscle Testing Right Dorsiflexion (L4) 4 Good Plantarflexion (S1) 4- Good- Inversion 5 Normal Eversion (S1) 5 Normal Comments 10 heel raises-pain in knee Left Dorsiflexion (L4) 5 Normal Plantarflexion (S1) 4+ Good+ Inversion 5 Normal Eversion (S1) 5 Normal Comments 15 heel raises-pain in knee PT-OP-Q Treatments Start: 06/04/20 15:24 Freq: Status: Active Protocol: Document 07/14/20 16:36 MA (Rec: 07/14/20 17:07 MA [id number]) Therapeutic Exercises Supine Exercises Ther[place]all Supine Exercise Name HS curls Side right Equipment Used red theraball Reps/Minutes 5x quad set Supine Exercise Name w/towel under thigh Side right Reps/Minutes 4x 10 sec HS stretch Supine Exercise Name active Side right Equipment Used towel Reps/Minutes 5 Manual Therapy Treatment Soft Tissue Mobilization adductors Body Location R Mobilization Type Rolling,Sustained Pressure, Trigger Point Release Intensity/Depth Moderate Body Position Hooklying HS Body Location R Mobilization Type Rolling,Sustained Pressure, Trigger Point Release Intensity/Depth Moderate Comments mild-moderate intensity. Pt c/ o too painful ITB Body Location R Mobilization Type Rolling,Sustained Pressure, Trigger Point Release Intensity/Depth Moderate Body Position Hooklying Comments mild-moderate intensity. pt c/ o too painful quad Body Location R med quad and lat quad border Mobilization Type Rolling,Sustained Pressure, Trigger Point Release Self-Care/Home Management Treatment Education Other Education Discussed importance of straightening leg to avoid contracture and avoiding wearing heels. Pt states asking me to not wear heels is like asking me to not eat chips, I can't do it. After further discussion pt willing to try not wearing heels for one month to see if knee pain decreases. Talked about icing knee as needed to decrease any swelling and help with pain. Pt states I hate ice but I like heat. Educated pt on not using heat when knee is swollen. PT-OP-T Assessment and Plan Start: 06/04/20 15:24 Freq: Status: Active Protocol: Document 07/14/20 16:36 MA (Rec: 07/14/20 17:07 MA [email or web address]) Physical Therapy Assessment Goals LEFS Early Childhood Goal (LTG) Pt will improve score to 75/80 to allow full return to typical activities. LTG Duration 08/12/20 gait Early Childhood Goal (LTG) Pt will show good gait mechanics with walking and running. LTG Duration 08/12/20 balance Short Term Goal (STG) Pt will be able to do SLS without pain or lat leaning for 15 sec. STG Duration 07/12/20 Early Childhood Goal (LTG) Pt will be able to do SLS without pain or lat leaning for 30 sec. LTG Duration 08/12/20 strength Short Term Goal (STG) Pt will be indep with HEP. STG Duration 07/12/20 Early Childhood Goal (LTG) Pt will score 5/5 LE strength in all planes and 3/5 LPM to show improved stability in order to inc pt's ability to play with son and do typical activties without pain. exercise Short Term Goal (STG) Pt will be able to go for 2 mile walk on flat terrain without increased pain. STG Duration 07/12/20 Nursing Home Goal (LTG) Pt will be able to go for run for at least 1 mile without increased pain LTG Duration 08/12/20 Progress Towards Goals Progress Towards Goals Slow Progress due to Activity Tolerance Assessment Summary Assessment Pt did not tolerate treatmet well today. She had minor swelling around superior medial patella and refused ice at end of session. Pt was tender to palpation over quads , ITB, HS and was only able to tolerate mild to moderate pressure during STM. Educated pt on not wearing heels for a month, icing knee, continuing to do her HEP and using rolling pin at home. Pt was unable to achieve full knee extension today due to pain. She tends to flex knee and ER hip when told to relax and states that is how she sleeps because it is most comfortable . Educated pt on trying to straighten knee more throughout day and to avoid hip ER position as default position to avoid causing hip and back pain. Physical Therapy Plan Frequency and Duration Frequency of Treatment 1-2x/week Duration of Treatment 2 months Plan of Care Start Date 06/11/20 Plan of Care End Date 08/12/20 Next Visit Focus/Plan Next Note Type Treatment Note Next Visit Plan Assess goals. Check if pt used rolling pin at home. Continue STM and quad sets to achieve terminal knee extension. Try to work on progression of hip strengthening, tball bridge & tball knee flex
--- NOTE | 2020-07-17 14:04 | PT.OTN ---
Current Diagnoses Pain in right knee (07/17/20) Pain in left leg (07/17/20) Difficulty in walking, not elsewhere classified (07/17/20) Abnormal posture (07/17/20) Weakness (07/17/20) Unspecified injury of right lower leg, initial encounter (07/17/20) Physical Therapy Treatment Note PT-OP-A Visit Information Start: 06/04/20 15:24 Freq: Status: Active Protocol: Document 07/17/20 12:59 [facility] (Rec: 07/17/20 14:04 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 (Rec: 06/11/20 13:48 [facility] [id number]) Current Condition History of Current Condition Onset Date December Current Complaints B knee pain & calves History of Current Condition During the summer, pt was running [employer] and 5 miles every day. A board broke and she landed with L leg through hole and R knee hit the gorund. Had to walk back 2 miles even though she was hurting. She had a big bruise. She keeps falling all the time recently. She loves to exercise and run but ever since nishant fell, she has been having trouble w/falling. She fell again on R knee the other day. Pt reports pain behind knee cap and feels like a pulled mm or something. Xrays showed no breaks. Pt has not been exercising much because nishant gets tired really fast and if she does too much her knee hurts so she cannot sleep. 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 pt reports sometimes has a hard time sleeping d/t R knee pain and shoulder problem that she tried PTf or but it didn't help. Pt reports after fall it feel slike R shoulder got worse and back pain got worse and R leg goes numb and cold sometimes. Pt reports knees and post ankles have been popping more. Pt likes to wear heels Prior Treatments and Tests Xrays-no issues, pain patches -help some Treatment Goals Patient/Caregiver Goals be able to walk and run, return to lifting, PT-OP-C Subjective Start: 06/04/20 15:24 Freq: Status: Active Protocol: Document 07/17/20 12:59 [facility] (Rec: 07/17/20 14:04 [facility] [id number]) OP-PT Subjective Patient Comments Patient Comments pt walked 3/4 mile yesteday but had R knee pain like a splinter feel. Pt reports L knee sore after work on L side last session. Notes she has been trying to wear sneakers more. Has not rode bike or used rolling pin PT-OP-D Balance Start: 06/04/20 15:24 Freq: Status: Active Protocol: Document 06/11/20 13:00 [facility] (Rec: 06/11/20 13:48 [facility] [id number]) Balance Tests Single Limb Standing Single Limb- Right 10 sec w/a lot of UE movement & trunk twisting Single Limb- Left 23 sec w/some lat leaning PT-OP-F Manual Assessment Start: 06/04/20 15:24 Freq: Status: Active Protocol: Document 06/11/20 13:00 [facility] (Rec: 06/11/20 13:48 [facility] [id number]) Manual Assessments Soft Tissue Assessment Soft Tissue Mobility Assessment R tenderness to joint lines B, HS, quads & adductors & ITB tight; L calf & quad tigthness , tenderness B patellar tendons Joint Mobility Assessment Joint Mobility Assessment IR of B femurs, minor IR Of tibia PT-OP-G Mobility & Gait Start: 06/04/20 15:24 Freq: Status: Active Protocol: Document 06/11/20 13:00 [facility] (Rec: 06/11/20 13:48 [facility] [id number]) OP Gait Assessment Comments Gait Comments Pt has excessive pelvic rotation & dec push off PT-OP-J Posture/Palpation/Skin Start: 06/04/20 15:24 Freq: Status: Active Protocol: Document 06/11/20 13:00 [facility] (Rec: 06/11/20 13:48 [facility] [id number]) Posture Evaluation [facility] Postural Classification System Lumbar Protective Mechanism Left AP 0 Lumbar Protective Mechanism Right AP 0 Lumbar Protective Mechanism Left PA 3 Lumbar Protective Mechanism Right PA 0 PT-OP-K Range of Motion Start: 06/04/20 15:24 Freq: Status: Active Protocol: Document 06/11/20 13:00 [facility] (Rec: 06/11/20 13:48 [facility] [id number]) Knee Goniometric Range of Motion Knee Right Patient Position Supine Flexion Active (degrees) 134 Extension Passive (degrees) 5 Comments pain ext & flex Left Patient Position Supine Flexion Active (degrees) 135 Extension Passive (degrees) 4 Comments DF in knee ext position B 0 deg PT-OP-L Special Tests Start: 06/04/20 15:24 Freq: Status: Active Protocol: Document 06/11/20 13:00 [facility] (Rec: 06/11/20 13:48 [facility] [id number]) Special Tests Knee Special Tests [place] Chondromalacia Test Results neg-med glide did not help pain B Art's Test Test Results neg B [place] Comments pain in R knee, tightness in RF & quads & hip flexors B Varus- 25 Degrees Test Results neg B Straight Leg Raise Test Results 41 deg R, 60 deg L Valgus- 25 Degrees Test Results neg B Thessaly Test 5 Degrees Test Results neg B Joanie Test Test Results neg B Posterior Draw Test Results neg B Nancy's Test Results neg B Anterior Draw Test Results neg B PT-OP-M Strength Start: 06/04/20 15:24 Freq: Status: Active Protocol: Document 06/11/20 13:00 [facility] (Rec: 06/11/20 13:48 [facility] [id number]) Hip Strength Hip Manual Muscle Testing Right Flexion (L2) 4 Good Extension (S1) 3+ Fair+ Abduction 3+ Fair+ Adduction 4 Good External Rotation 3+ Fair+ Internal Rotation 3+ Fair+ Comments pain knee Left Flexion (L2) 4+ Good+ Extension (S1) 3+ Fair+ Abduction 4 Good Adduction 5 Normal External Rotation 3+ Fair+ Internal Rotation 3+ Fair+ Knee Strength Knee Manual Muscle Testing Right Flexion (S2) 3+ Fair+ Extension (L3) 3+ Fair+ Comments pain ext Left Flexion (S2) 4- Good- Extension (L3) 4- Good- Ankle/Foot Strength Ankle and Foot Manual Muscle Testing Right Dorsiflexion (L4) 4 Good Plantarflexion (S1) 4- Good- Inversion 5 Normal Eversion (S1) 5 Normal Comments 10 heel raises-pain in knee Left Dorsiflexion (L4) 5 Normal Plantarflexion (S1) 4+ Good+ Inversion 5 Normal Eversion (S1) 5 Normal Comments 15 heel raises-pain in knee PT-OP-Q Treatments Start: 06/04/20 15:24 Freq: Status: Active Protocol: Document 07/17/20 12:59 [facility] (Rec: 07/17/20 14:04 [facility] [id number]) Cardio Equipment Bicycle (Upright) Duration (Minutes) 6 Resistance 5 Seat Position 4 Gym Equipment Therapeutic Ball supine Ball Size/Color 55cm Body Position Supine Comments 1. knee flex x20 2. bridge w/calves on ball x8 squat Exercise Details wall squat Ball Size/Color red Reps/Duration 10 Comments almost full range to 90 squat Therapeutic Exercises Supine Exercises SLR Supine Exercise Name focus on pelvic tilt & core Side bilateral Reps/Minutes 5 Standing Exercises TKE Side right Equipment Used L3 Reps/Minutes 20 ea Comments cue for slow and controlled calf stretch Standing Exercise Name stairs Side bilateral Reps/Minutes 30 sec Manual Therapy Treatment Soft Tissue Mobilization HS Body Location L HS into calf Mobilization Type Rolling Intensity/Depth Moderate quad Body Location R patellar tendon Mobilization Type Rolling,Strumming Intensity/Depth Moderate Body Position Hooklying Joint Mobilizations patellofemoral Joint R Direction sup, inf, med Taping KT tape Body Location R knee Treatment Focus med patellar glideing & quad activation Type of Tape Kinesio Tape Skin Inspection good PT-OP-T Assessment and Plan Start: 06/04/20 15:24 Freq: Status: Active Protocol: Document 07/17/20 12:59 [facility] (Rec: 07/17/20 14:04 [facility] [id number]) Physical Therapy Assessment Goals LEFS Shelter Goal (LTG) Pt will improve score to 75/80 to allow full return to typical activities. LTG Duration 08/12/20 gait Shelter Goal (LTG) Pt will show good gait mechanics with walking and running. LTG Duration 08/12/20 balance Short Term Goal (STG) Pt will be able to do SLS without pain or lat leaning for 15 sec. STG Duration 07/12/20 Shelter Goal (LTG) Pt will be able to do SLS without pain or lat leaning for 30 sec. LTG Duration 08/12/20 strength Short Term Goal (STG) Pt will be indep with HEP. 1/7-doing some STG Duration 07/12/20 Shelter Goal (LTG) Pt will score 5/5 LE strength in all planes and 3/5 LPM to show improved stability in order to inc pt's ability to play with son and do typical activties without pain. exercise Short Term Goal (STG) Pt will be able to go for 2 mile walk on flat terrain without increased pain. 07/17-walked 3/4 mile before pain STG Duration 07/12/20 Shelter Goal (LTG) Pt will be able to go for run for at least 1 mile without increased pain LTG Duration 08/12/20 Assessment Summary Assessment Pt is now able to do squat with further range. She has been doing some exercsies but inconsistantly. She is trying wearing sneakers but does still note pain. She is increasing in ability to walk but is still very limited d/t splinter feel in knee. Physical Therapy Plan Frequency and Duration Frequency of Treatment 1-2x/week Duration of Treatment 2 months Plan of Care Start Date 06/11/20 Plan of Care End Date 08/12/20 Next Visit Focus/Plan Next Note Type Treatment Note Next Visit Plan assess to make sure pt doing HEP at home Continue STM and quad sets to achieve terminal knee extension. Try to work on progression of hip strengthening, tball bridge & tball knee flex
--- NOTE | 2020-07-28 13:46 | PT.OTN ---
Current Diagnoses Pain in right knee (07/28/20) Pain in left leg (07/28/20) Difficulty in walking, not elsewhere classified (07/28/20) Abnormal posture (07/28/20) Weakness (07/28/20) Unspecified injury of right lower leg, initial encounter (07/28/20) Physical Therapy Treatment Note PT-OP-A Visit Information Start: 06/04/20 15:24 Freq: Status: Active Protocol: Document 07/28/20 12:58 [facility] (Rec: 07/28/20 13:46 [facility] [id number]) Out-Patient Physical Therapy Visit Information Visit Information Visit Type Treatment Note Visit Start Time 13:00 Visit Stop Time 13:44 Total Visit Minutes 44 Visit Number 8 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 A board broke and she landed with L leg through hole and R knee hit the gorund. Had to walk back 2 miles even though she was hurting. She had a big bruise. She keeps falling all the time recently. She loves to exercise and run but ever since nishant fell, she has been having trouble w/falling. She fell again on R knee the other day. Pt reports pain behind knee cap and feels like a pulled mm or something. Xrays showed no breaks. Pt has not been exercising much because nishant gets tired really fast and if she does too much her knee hurts so she cannot sleep. 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 pt reports sometimes has a hard time sleeping d/t R knee pain and shoulder problem that she tried PTf or but it didn't help. Pt reports after fall it feel slike R shoulder got worse and back pain got worse and R leg goes numb and cold sometimes. Pt reports knees and post ankles have been popping more. Pt likes to wear heels Prior Treatments and Tests Xrays-no issues, pain patches -help some Treatment Goals Patient/Caregiver Goals be able to walk and run, return to lifting, PT-OP-C Subjective Start: 06/04/20 15:24 Freq: Status: Active Protocol: Document 07/28/20 12:58 [facility] (Rec: 07/28/20 13:46 [facility] [id number]) OP-PT Subjective Patient Comments Patient Comments has walked 2 miles a couple times. Both knees hurt and ant sparks of L side. Pt feels like something is still a little broken or torn or splinter in R knee. She has been doing exercsises and has been using a massager she found at [facility]. Pt reports pain starts at 1/2 mile but she keeps walking. Shivani feels like seh ahs to drag the R leg a little more than L. Notes she drove sister to [place] last week and was sore in ant knee. PT-OP-D Balance Start: 06/04/20 15:24 Freq: Status: Active Protocol: Document 06/11/20 13:00 [facility] (Rec: 06/11/20 13:48 [facility] [id number]) Balance Tests Single Limb Standing Single Limb- Right 10 sec w/a lot of UE movement & trunk twisting Single Limb- Left 23 sec w/some lat leaning PT-OP-F Manual Assessment Start: 06/04/20 15:24 Freq: Status: Active Protocol: Document 06/11/20 13:00 [facility] (Rec: 06/11/20 13:48 [facility] [id number]) Manual Assessments Soft Tissue Assessment Soft Tissue Mobility Assessment R tenderness to joint lines B, HS, quads & adductors & ITB tight; L calf & quad tigthness , tenderness B patellar tendons Joint Mobility Assessment Joint Mobility Assessment IR of B femurs, minor IR Of tibia PT-OP-G Mobility & Gait Start: 06/04/20 15:24 Freq: Status: Active Protocol: Document 06/11/20 13:00 [facility] (Rec: 06/11/20 13:48 [facility] [id number]) OP Gait Assessment Comments Gait Comments Pt has excessive pelvic rotation & dec push off PT-OP-J Posture/Palpation/Skin Start: 06/04/20 15:24 Freq: Status: Active Protocol: Document 06/11/20 13:00 [facility] (Rec: 06/11/20 13:48 [facility] [id number]) Posture Evaluation [facility] Postural Classification System Lumbar Protective Mechanism Left AP 0 Lumbar Protective Mechanism Right AP 0 Lumbar Protective Mechanism Left PA 3 Lumbar Protective Mechanism Right PA 0 PT-OP-K Range of Motion Start: 06/04/20 15:24 Freq: Status: Active Protocol: Document 06/11/20 13:00 [facility] (Rec: 06/11/20 13:48 [facility] [id number]) Knee Goniometric Range of Motion Knee Right Patient Position Supine Flexion Active (degrees) 134 Extension Passive (degrees) 5 Comments pain ext & flex Left Patient Position Supine Flexion Active (degrees) 135 Extension Passive (degrees) 4 Comments DF in knee ext position B 0 deg PT-OP-L Special Tests Start: 06/04/20 15:24 Freq: Status: Active Protocol: Document 06/11/20 13:00 [facility] (Rec: 06/11/20 13:48 [facility] [id number]) Special Tests Knee Special Tests Beach Chondromalacia Test Results neg-med glide did not help pain B Art's Test Test Results neg B Juancho Comments pain in R knee, tightness in RF & quads & hip flexors B Varus- 25 Degrees Test Results neg B Straight Leg Raise Test Results 41 deg R, 60 deg L Valgus- 25 Degrees Test Results neg B Thessaly Test 5 Degrees Test Results neg B Joanie Test Test Results neg B Posterior Draw Test Results neg B Nancy's Test Results neg B Anterior Draw Test Results neg B PT-OP-M Strength Start: 06/04/20 15:24 Freq: Status: Active Protocol: Document 06/11/20 13:00 [facility] (Rec: 06/11/20 13:48 [facility] [id number]) Hip Strength Hip Manual Muscle Testing Right Flexion (L2) 4 Good Extension (S1) 3+ Fair+ Abduction 3+ Fair+ Adduction 4 Good External Rotation 3+ Fair+ Internal Rotation 3+ Fair+ Comments pain knee Left Flexion (L2) 4+ Good+ Extension (S1) 3+ Fair+ Abduction 4 Good Adduction 5 Normal External Rotation 3+ Fair+ Internal Rotation 3+ Fair+ Knee Strength Knee Manual Muscle Testing Right Flexion (S2) 3+ Fair+ Extension (L3) 3+ Fair+ Comments pain ext Left Flexion (S2) 4- Good- Extension (L3) 4- Good- Ankle/Foot Strength Ankle and Foot Manual Muscle Testing Right Dorsiflexion (L4) 4 Good Plantarflexion (S1) 4- Good- Inversion 5 Normal Eversion (S1) 5 Normal Comments 10 heel raises-pain in knee Left Dorsiflexion (L4) 5 Normal Plantarflexion (S1) 4+ Good+ Inversion 5 Normal Eversion (S1) 5 Normal Comments 15 heel raises-pain in knee PT-OP-Q Treatments Start: 06/04/20 15:24 Freq: Status: Active Protocol: Document 07/28/20 12:58 [facility] (Rec: 07/28/20 13:46 [facility] [id number]) Cardio Equipment Bicycle (Upright) Duration (Minutes) 6 Resistance 5 Seat Position 4 Gym Equipment Therapeutic Ball supine Ball Size/Color 55cm Body Position Supine Comments 1. knee flex x20 2. bridge w/calves on ball x8 Therapeutic Exercises Standing Exercises wt shift Standing Exercise Name to SLS balance x3 sec Side bilateral Reps/Minutes 10 heel raises Side bilateral Reps/Minutes 15 Comments focus on neutral foot sidestep Side bilateral Equipment Used yellow tband Reps/Minutes 20ftx2 Comments adjusted to around thighs for 2nd set d/t pain in L lower leg Manual Therapy Treatment Soft Tissue Mobilization tib ant Body Location L Mobilization Type Rolling quad Body Location R patellar tendon & med knee Mobilization Type Myofascial Release,Rolling, Strumming Body Position Hooklying Joint Mobilizations tib fib Joint L Direction PA Taping KT tape Body Location R knee Treatment Focus med patellar glideing & quad activation Type of Tape Kinesio Tape Skin Inspection good PT-OP-T Assessment and Plan Start: 06/04/20 15:24 Freq: Status: Active Protocol: Document 07/28/20 12:58 [facility] (Rec: 07/28/20 13:46 [facility] [id number]) Physical Therapy Assessment Goals LEFS Halfway Goal (LTG) Pt will improve score to 75/80 to allow full return to typical activities. LTG Duration 08/12/20 gait Halfway Goal (LTG) Pt will show good gait mechanics with walking and running. LTG Duration 08/12/20 balance Short Term Goal (STG) Pt will be able to do SLS without pain or lat leaning for 15 sec. STG Duration 07/12/20 Inverter And Clipper Goal (LTG) Pt will be able to do SLS without pain or lat leaning for 30 sec. LTG Duration 08/12/20 strength Short Term Goal (STG) Pt will be indep with HEP. 07/17-doing some STG Duration 07/12/20 Inverter And Clipper Goal (LTG) Pt will score 5/5 LE strength in all planes and 3/5 LPM to show improved stability in order to inc pt's ability to play with son and do typical activties without pain. exercise Short Term Goal (STG) Pt will be able to go for 2 mile walk on flat terrain without increased pain. 07/17-walked 3/4 mile before pain STG Duration 07/12/20 Halfway Goal (LTG) Pt will be able to go for run for at least 1 mile without increased pain LTG Duration 08/12/20 Assessment Summary Assessment Pt had pain in L lower leg w/ lat walks when band around lower legs but felt okay at thighs. Able to do exercises today without inc pain. Focus on glutes & quad strength. Encouraged to bike at home. Difficulty w/SLS Physical Therapy Plan Frequency and Duration Frequency of Treatment 1-2x/week Duration of Treatment 2 months Plan of Care Start Date 06/11/20 Plan of Care End Date 08/12/20 Next Visit Focus/Plan Next Note Type Treatment Note Next Visit Plan assess to make sure pt doing HEP at home Continue STM and quad sets to achieve terminal knee extension. Try to work on progression of hip strengthening
--- NOTE | 2020-08-04 13:20 | PT-OP ANOTE ---
Pt called re: no show and did not know she had an appt today. Pt rescheduled to tomorrow.
--- NOTE | 2020-08-05 17:57 | PT.OTN ---
Current Diagnoses Pain in right knee (08/05/20) Pain in left leg (08/05/20) Difficulty in walking, not elsewhere classified (08/05/20) Abnormal posture (08/05/20) Weakness (08/05/20) Unspecified injury of right lower leg, initial encounter (08/05/20) Physical Therapy Treatment Note PT-OP-A Visit Information Start: 06/04/20 15:24 Freq: Status: Active Protocol: Document 08/05/20 15:21 [facility] (Rec: 08/05/20 16:05 [facility] [id number]) Out-Patient Physical Therapy Visit Information Visit Information Visit Type Treatment Note Visit Note short session d/t insurance limits Visit Start Time 15:20 Visit Stop Time 15:56 Total Visit Minutes 36 Visit Number 9 Number of PHLEBOTOMY TECH Visits 0 PT-OP-B Current Condition Start: 06/04/20 15:24 Freq: Status: Active Protocol: Document 06/11/20 13:00 [facility] (Rec: 06/11/20 13:48 [facility] [id number]) Current Condition History of Current Condition Onset Date December Current Complaints B knee pain & calves History of Current Condition During the summer, pt was running [employer] and 5 miles every ohter day. A board broke and she landed with L leg through hole and R knee hit the gorund. Had to walk back 2 miles even though she was hurting. She had a big bruise. She keeps falling all the time recently. She loves to exercise and run but ever since seliliana fell, she has been having trouble w/falling. She fell again on R knee the other day. Pt reports pain behind knee cap and feels like a pulled mm or something. Xrays showed no breaks. Pt has not been exercising much because nishant gets tired really fast and if she does too much her knee hurts so she cannot sleep. 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 pt reports sometimes has a hard time sleeping d/t R knee pain and shoulder problem that she tried PTf or but it didn't help. Pt reports after fall it feel slike R shoulder got worse and back pain got worse and R leg goes numb and cold sometimes. Pt reports knees and post ankles have been popping more. Pt likes to wear heels Prior Treatments and Tests Xrays-no issues, pain patches -help some Treatment Goals Patient/Caregiver Goals be able to walk and run, return to lifting, PT-OP-C Subjective Start: 06/04/20 15:24 Freq: Status: Active Protocol: Document 08/05/20 15:21 [facility] (Rec: 08/05/20 16:05 [facility] [id number]) OP-PT Subjective Patient Comments Patient Comments Pt reports she walks right by the time she gets to 2 miles, she has to stop d/t pain. notes she has had mm spasms. pt walked 4 miles the other day on accident and had a lot of pain PT-OP-D Balance Start: 06/04/20 15:24 Freq: Status: Active Protocol: Document 06/11/20 13:00 [facility] (Rec: 06/11/20 13:48 [facility] [id number]) Balance Tests Single Limb Standing Single Limb- Right 10 sec w/a lot of UE movement & trunk twisting Single Limb- Left 23 sec w/some lat leaning PT-OP-F Manual Assessment Start: 06/04/20 15:24 Freq: Status: Active Protocol: Document 06/11/20 13:00 [facility] (Rec: 06/11/20 13:48 [facility] [id number]) Manual Assessments Soft Tissue Assessment Soft Tissue Mobility Assessment R tenderness to joint lines B, HS, quads & adductors & ITB tight; L calf & quad tigthness , tenderness B patellar tendons Joint Mobility Assessment Joint Mobility Assessment IR of B femurs, minor IR Of tibia PT-OP-G Mobility & Gait Start: 06/04/20 15:24 Freq: Status: Active Protocol: Document 06/11/20 13:00 [facility] (Rec: 06/11/20 13:48 [facility] [id number]) OP Gait Assessment Comments Gait Comments Pt has excessive pelvic rotation & dec push off PT-OP-J Posture/Palpation/Skin Start: 06/04/20 15:24 Freq: Status: Active Protocol: Document 06/11/20 13:00 [facility] (Rec: 06/11/20 13:48 [facility] [id number]) Posture Evaluation [facility] Postural Classification System Lumbar Protective Mechanism Left AP 0 Lumbar Protective Mechanism Right AP 0 Lumbar Protective Mechanism Left PA 3 Lumbar Protective Mechanism Right PA 0 PT-OP-K Range of Motion Start: 06/04/20 15:24 Freq: Status: Active Protocol: Document 06/11/20 13:00 [facility] (Rec: 06/11/20 13:48 [facility] [id number]) Knee Goniometric Range of Motion Knee Right Patient Position Supine Flexion Active (degrees) 134 Extension Passive (degrees) 5 Comments pain ext & flex Left Patient Position Supine Flexion Active (degrees) 135 Extension Passive (degrees) 4 Comments DF in knee ext position B 0 deg PT-OP-L Special Tests Start: 06/04/20 15:24 Freq: Status: Active Protocol: Document 06/11/20 13:00 [facility] (Rec: 06/11/20 13:48 [facility] [id number]) Special Tests Knee Special Tests Beach Chondromalacia Test Results neg-med glide did not help pain B Art's Test Test Results neg B Juancho Comments pain in R knee, tightness in RF & quads & hip flexors B Varus- 25 Degrees Test Results neg B Straight Leg Raise Test Results 41 deg R, 60 deg L Valgus- 25 Degrees Test Results neg B Thessaly Test 5 Degrees Test Results neg B Joanie Test Test Results neg B Posterior Draw Test Results neg B Nancy's Test Results neg B Anterior Draw Test Results neg B PT-OP-M Strength Start: 06/04/20 15:24 Freq: Status: Active Protocol: Document 08/05/20 15:21 [facility] (Rec: 08/05/20 16:05 [facility] [id number]) Hip Strength Hip Manual Muscle Testing Right Flexion (L2) 4 Good Extension (S1) 3+ Fair+ Abduction 3+ Fair+ Adduction 5 Normal External Rotation 4- Good- Internal Rotation 4- Good- Comments pain knee Left Flexion (L2) 4+ Good+ Extension (S1) 4 Good Abduction 4 Good Adduction 5 Normal External Rotation 4+ Good+ Internal Rotation 4+ Good+ Knee Strength Knee Manual Muscle Testing Right Flexion (S2) 5 Normal Extension (L3) 5 Normal Left Flexion (S2) 5 Normal Extension (L3) 5 Normal Ankle/Foot Strength Ankle and Foot Manual Muscle Testing Right Dorsiflexion (L4) 5 Normal Plantarflexion (S1) 4- Good- Inversion 5 Normal Eversion (S1) 5 Normal Comments 12 heel raises-pain in knee Left Dorsiflexion (L4) 5 Normal Plantarflexion (S1) 5 Normal Inversion 5 Normal Eversion (S1) 5 Normal Comments 20 heel raises- PT-OP-Q Treatments Start: 06/04/20 15:24 Freq: Status: Active Protocol: Document 08/05/20 15:21 [facility] (Rec: 08/05/20 16:05 [facility] [id number]) Cardio Equipment Bicycle (Upright) Duration (Minutes) 3 Resistance 5 Seat Position 4 Therapeutic Exercises Supine Exercises stretch Supine Exercise Name juancho test Side bilateral Reps/Minutes 30 sec L and 10 sec on R- painful R Standing Exercises stretch Standing Exercise Name 1 quad stretch on chair 2. hip flexor stretch Side bilateral Reps/Minutes 30 sec ea w/hip flexor stretch x2 Manual Therapy Treatment Soft Tissue Mobilization quad Body Location med quad w/flex Mobilization Type Myofascial Release,Rolling, Strumming Body Position Sitting Joint Mobilizations tib fib Joint L Direction PA tibfem Joint PA FM seated Taping KT tape Body Location R knee Treatment Focus med patellar glideing & quad activation Type of Tape Kinesio Tape Skin Inspection good PT-OP-T Assessment and Plan Start: 06/04/20 15:24 Freq: Status: Active Protocol: Document 08/05/20 15:21 [facility] (Rec: 08/05/20 16:05 [facility] [id number]) Physical Therapy Assessment Goals LEFS Usp Goal (LTG) Pt will improve score to 75/80 to allow full return to typical activities. 08/05-n/t LTG Duration 10/03/20 gait Usp Goal (LTG) Pt will show good gait mechanics with walking and running. 08/05-good mechanics demontrated with walking, have not tried to progress to running LTG Duration 10/03/20 balance Short Term Goal (STG) Pt will be able to do SLS without pain or lat leaning for 15 sec. STG Duration achieved Cow Puncher Goal (LTG) Pt will be able to do SLS without pain or lat leaning for 30 sec. 08/05-24 sec R, L 30 sec LTG Duration 10/03/20 strength Short Term Goal (STG) Pt will be indep with HEP. 07/17-doing some STG Duration achieved Cow Puncher Goal (LTG) Pt will score 5/5 LE strength in all planes and 3/5 LPM to show improved stability in order to inc pt's ability to play with son and do typical activties without pain. 08/05-improving LTG Duration 10/03/20 exercise Short Term Goal (STG) Pt will be able to go for 2 mile walk on flat terrain without increased pain. 07/17-has walked 2-4 miles but typically does have pain at 2 miles STG Duration 09/05/20 Usp Goal (LTG) Pt will be able to go for run for at least 1 mile without increased pain LTG Duration 10/03/20 Assessment Summary Assessment Pt is making progress especially now over the past few weeks since she has been compliant with HEP and has been biking and walkign at home. She came in today with no pain and just finished working which shows progress. She still has tightness in quads and limited knee mobility with pain at end ranges but that does imrpove with manual treatment. Pt would benefit from cont PT to work on progression back to running and cont to build quad /glute strength and balance in order to improve movement mecahnis of B knees and lower legs. Physical Therapy Plan Frequency and Duration Frequency of Treatment 1-2x/week Duration of Treatment 2 months Plan of Care Start Date 08/05/20 Plan of Care End Date 10/03/20 Therapeutic Interventions Therapeutic Interventions Aquatic Therapy,Balance Training,Gait Training,Home Exercise Program,Joint Mobilizations,Manual Therapy, Neuromuscular Re-education, Orthotic/Prosthetic Management ,Patient/Caregiver Education, Self-Care/Home Management,Soft Tissue Mobilization,Taping, Therapeutic Activities, Therapeutic Exercises Modalities Cold Pack/Ice Massage,Electric Stimulation,Hot Packs, Infrared Therapy,Iontophoresis ,Ultrasound Next Visit Focus/Plan Next Note Type Treatment Note Next Visit Plan cont to progress strengthening
--- NOTE | 2020-08-05 17:57 | PT.OPPOC ---
Physical, Occupational & Speech Therapy At [facility] Current Diagnoses Pain in right knee (08/05/20) Pain in left leg (08/05/20) Difficulty in walking, not elsewhere classified (08/05/20) Abnormal posture (08/05/20) Weakness (08/05/20) Unspecified injury of right lower leg, initial encounter (08/05/20) Visit Care Team Role Provider Type Ирина Guevara MD Attending Provider Physician Family Provider Primary Care Provider Referring Provider Specialty: Family Practice Address: [address] [place] [address], [facility] [place], [address] Email: [email or web address] Plan Of Care PT-OP-T Assessment and Plan Start: 06/04/20 15:24 Freq: Status: Active Protocol: Document 08/05/20 15:21 [facility] (Rec: 08/05/20 16:05 [facility] [id number]) Physical Therapy Assessment Goals LEFS Sand Bobber Goal (LTG) Pt will improve score to 75/80 to allow full return to typical activities. 08/05-n/t LTG Duration 10/03/20 gait Sand Bobber Goal (LTG) Pt will show good gait mechanics with walking and running. 08/05-good mechanics demontrated with walking, have not tried to progress to running LTG Duration 10/03/20 balance Short Term Goal (STG) Pt will be able to do SLS without pain or lat leaning for 15 sec. STG Duration achieved Group Home Goal (LTG) Pt will be able to do SLS without pain or lat leaning for 30 sec. 08/05-24 sec R, L 30 sec LTG Duration 10/03/20 strength Short Term Goal (STG) Pt will be indep with HEP. 07/17-doing some STG Duration achieved Sand Bobber Goal (LTG) Pt will score 5/5 LE strength in all planes and 3/5 LPM to show improved stability in order to inc pt's ability to play with son and do typical activties without pain. 08/05-improving LTG Duration 10/03/20 exercise Short Term Goal (STG) Pt will be able to go for 2 mile walk on flat terrain without increased pain. 07/17-has walked 2-4 miles but typically does have pain at 2 miles STG Duration 09/05/20 Group Home Goal (LTG) Pt will be able to go for run for at least 1 mile without increased pain LTG Duration 10/03/20 Assessment Summary Assessment Pt is making progress especially now over the past few weeks since she has been compliant with HEP and has been biking and walkign at home. She came in today with no pain and just finished working which shows progress. She still has tightness in quads and limited knee mobility with pain at end ranges but that does imrpove with manual treatment. Pt would benefit from cont PT to work on progression back to running and cont to build quad /glute strength and balance in order to improve movement mecahnis of B knees and lower legs. Physical Therapy Plan Frequency and Duration Frequency of Treatment 1-2x/week Duration of Treatment 2 months Plan of Care Start Date 08/05/20 Plan of Care End Date 10/03/20 Therapeutic Interventions Therapeutic Interventions Aquatic Therapy,Balance Training,Gait Training,Home Exercise Program,Joint Mobilizations,Manual Therapy, Neuromuscular Re-education, Orthotic/Prosthetic Management ,Patient/Caregiver Education, Self-Care/Home Management,Soft Tissue Mobilization,Taping, Therapeutic Activities, Therapeutic Exercises Modalities Cold Pack/Ice Massage,Electric Stimulation,Hot Packs, Infrared Therapy,Iontophoresis ,Ultrasound Next Visit Focus/Plan Next Note Type Treatment Note Next Visit Plan cont to progress strengthening Plan of Care Dates Plan of Care Start Date 08/05/20 Plan of Care End Date 10/03/20 Electronically Signed by: Ирина Sandoval, PT 08/05/20 0514 Please Sign and Return: I have reviewed this Plan of Care and certify that the skilled therapy services above are required to meet the patient?s needs. Physician Signature Date Printed Name and Credentials Clinical Instructor Signature Printed Name and Credentials
--- NOTE | 2020-08-14 13:22 | PT-OP ANOTE ---
Pt called re: no show and informed of next scheduled appointment.
--- NOTE | 2020-08-27 18:40 | PT.OTRE ---
Current Diagnoses Pain in right knee (08/27/20) Cervicalgia (08/27/20) Pain in left leg (08/27/20) Difficulty in walking, not elsewhere classified (08/27/20) Abnormal posture (08/27/20) Weakness (08/27/20) Unspecified injury of right lower leg, initial encounter (08/27/20) Past Medical History (Last Reviewed 08/17/20 @ 10:06 by Satya Cevallos DO) Anemia Bacterial vaginosis Gastric ulcer Genital warts IBS (irritable bowel syndrome) Migraine with aura and with status migrainosus Vaginal delivery (04/21/15) Visit Care Team Role Provider Type Ирина Guevara MD Attending Provider Physician Family Provider Primary Care Provider Referring Provider Specialty: Family Practice Address: [address] [place] [address], [facility] Email: [email or web address] Physical Therapy Re-Evaluation PT-OP-A Visit Information Start: 06/04/20 15:24 Freq: Status: Active Protocol: Document 08/27/20 14:34 [facility] (Rec: 08/27/20 15:18 [facility] [id number]) Out-Patient Physical Therapy Visit Information Visit Information Visit Type Re-Evaluation Visit Note short session d/t insurance limits Visit Start Time 14:34 Visit Stop Time 15:11 Total Visit Minutes 37 Visit Number 10 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 NEck pain gives HAs. Pt reports neck pain post neck into R lat post neck & into eyeys. If she does not take advil then it turns into a migraine. She had recently had a migraine for 3 days and had to go t the ER and she felt better after their treatment. Pt repots neck is really stiff and thinks that is why she gets HAs. She hurt her neck and pulled a mm a couple years ago. Pt changed to softer pillow. Pt had symptoms of sinus infection recently. Pt reports she thinks neck got worse d/t R shoulder pain. Pt reports Xrays have been doen but no MRI. She did PT prior for shoudler and it made it worse 2 different times. Pt reports she has HOU since at least middle school. Family hx of migraines. Pt reports recently LBP has been irritated and post L leg has been really tight. IE for knees:During the summer , pt was running [employer] and 5 miles every ohter day. A board broke and she landed with L leg through hole and R knee hit the gorund . Had to walk back 2 miles even though she was hurting. She had a big bruise. She keeps falling all the time recently. She loves to exercise and run but ever since nishant fell, she has been having trouble w/falling. She fell again on R knee the other day. Pt reports pain behind knee cap and feels like a pulled mm or something. Xrays showed no breaks. Pt has not been exercising much because nishant gets tired really fast and if she does too much her knee hurts so she cannot sleep. 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 pt reports sometimes has a hard time sleeping d/t R knee pain and shoulder problem that she tried PTf or but it didn't help. Pt reports after fall it feel slike R shoulder got worse and back pain got worse and R leg goes numb and cold sometimes. Pt reports knees and post ankles have been popping more. Pt likes to wear heels Prior Treatments and Tests Xrays-no issues, pain patches -help some PT-OP-C Subjective Start: 06/04/20 15:24 Freq: Status: Active Protocol: Document 08/27/20 14:34 [facility] (Rec: 08/27/20 15:18 [facility] [id number]) OP-PT Pain Assessment Location neck Pain Location Details neck & HOU Intensity 10 Radiating Location occ RUE wakes up numb, occ L elbow & wrist painful Other Pain Aggravating Factors unsure Pain Alleviating Factors Medication Other Pain Alleviating Factors patchs for pain, CBD lotion, icy hot PT-OP-D Balance Start: 06/04/20 15:24 Freq: Status: Active Protocol: Document 08/27/20 14:34 [facility] (Rec: 08/27/20 15:18 [facility] [id number]) Balance Tests Single Limb Standing Single Limb- Right 30 sec w/some trunk leaning Single Limb- Left 30 sec w/some trunk leanin PT-OP-F Manual Assessment Start: 06/04/20 15:24 Freq: Status: Active Protocol: Document 08/27/20 14:34 [facility] (Rec: 08/27/20 15:18 [facility] [id number]) Manual Assessments Soft Tissue Assessment Soft Tissue Mobility Assessment R>L soft tissue tightness (UT, LS, scalenes, SCM, c paraspinals) Joint Mobility Assessment Joint Mobility Assessment 1st rib elevated R PT-OP-G Mobility & Gait Start: 06/04/20 15:24 Freq: Status: Active Protocol: Document 06/11/20 13:00 [facility] (Rec: 06/11/20 13:48 [facility] [id number]) OP Gait Assessment Comments Gait Comments Pt has excessive pelvic rotation & dec push off PT-OP-J Posture/Palpation/Skin Start: 06/04/20 15:24 Freq: Status: Active Protocol: Document 08/27/20 14:34 [facility] (Rec: 08/27/20 15:18 [facility] [id number]) Posture Evaluation Nya Postural Classification System Nya Postural Classifications Posterior/Posterior Elbow Flexion Test 0 Lumbar Protective Mechanism Left AP 2 Lumbar Protective Mechanism Right AP 0 Lumbar Protective Mechanism Left PA 3 Lumbar Protective Mechanism Right PA 1 PT-OP-K Range of Motion Start: 06/04/20 15:24 Freq: Status: Active Protocol: Document 08/27/20 14:34 [facility] (Rec: 08/27/20 15:18 [facility] [id number]) Cervical Spine Range of Motion Cervical Spine Active Degrees Flexion 44 Extension 55 Rotation Left 52 Rotation Right 56 Lateral Flexion Left 41 Lateral Flexion Right 32 PT-OP-L Special Tests Start: 06/04/20 15:24 Freq: Status: Active Protocol: Document 08/27/20 14:34 [facility] (Rec: 08/27/20 15:18 [facility] [id number]) Special Tests Cervical Spine Special Tests Vertebrobasilar Test Results neg PT-OP-M Strength Start: 06/04/20 15:24 Freq: Status: Active Protocol: Document 08/27/20 14:34 [facility] (Rec: 08/27/20 15:18 [facility] [id number]) Shoulder Strength Shoulder Manual Muscle Testing Right Flexion 3+ Fair+ Extension 3+ Fair+ Abduction (C5) 3+ Fair+ External Rotation 3+ Fair+ Internal Rotation 4 Good Left Flexion 4 Good Extension 4 Good Abduction (C5) 4 Good External Rotation 4- Good- Internal Rotation 4 Good PT-OP-Q Treatments Start: 06/04/20 15:24 Freq: Status: Active Protocol: Document 08/27/20 14:34 [facility] (Rec: 08/27/20 18:32 [facility] [id number]) Manual Therapy Treatment Soft Tissue Mobilization cervical Body Location SOR, cervical paraspinals Mobilization Type Rolling,Sustained Pressure Intensity/Depth Moderate Body Position Hooklying Comments superficial to moderate pressure Taping KT tape Body Location R knee Treatment Focus med patellar glideing & quad activation Type of Tape Kinesio Tape Skin Inspection good Self-Care/Home Management Treatment Education Other Education ball & theracane release PT-OP-T Assessment and Plan Start: 06/04/20 15:24 Freq: Status: Active Protocol: Document 08/27/20 14:34 [facility] (Rec: 08/27/20 15:18 [facility] [id number]) Physical Therapy Assessment Goals NDI Impairment 30/50 Short Term Goal (STG) Pt will dec score of NDI to no greater than 20/50 to show imrpoved funcitonal ability. STG Duration 09/24/20 [employer] Goal (LTG) Pt will dec score of NDI to no greater than 8/50 to show imrpoved funcitonal ability. LTG Duration 10/25/20 LEFS [facility] Goal (LTG) Pt will improve score to 75/80 to allow full return to typical activities. 08/05-n/t LTG Duration 10/25/20 gait [employer] Goal (LTG) Pt will show good gait mechanics with walking and running. 08/05-good mechanics demontrated with walking, have not tried to progress to running LTG Duration 10/25/20 balance Short Term Goal (STG) Pt will be able to do SLS without pain or lat leaning for 15 sec. STG Duration achieved [employer] Goal (LTG) Pt will be able to do SLS without pain or lat leaning for 30 sec. 08/05-24 sec R, L 30 sec 08/27-able to do 30 sec balance B but has more trunk tipping side<>side on R LTG Duration 10/25/20 strength Short Term Goal (STG) Pt will be indep with HEP. 07/17-doing some STG Duration achieved [facility] Goal (LTG) Pt will score 5/5 LE strength & UE strength & 5/5 EFTin all planes and 3/5 LPM to show improved stability in order to inc pt's ability to play with son and do typical activties without pain. 08/05-improving LTG Duration 10/25/20 exercise Short Term Goal (STG) Pt will be able to go for 2 mile walk on flat terrain without increased pain. 07/17-has walked 2-4 miles but typically does have pain at 2 miles 08/27-occ sparks slpints L and R knee w/walking STG Duration 09/24/20 [facility] Goal (LTG) Pt will be able to go for run for at least 1 mile without increased pain LTG Duration 10/25/20 Assessment Summary Assessment Pt presents w/assessment of new added diagnosis w/referal for chronic neck pain and HOU w /recent worsening where pt went to ER d/t 3 days of HOU. She has HOU frequently that is related to her neck pain, R shoulder pain and jaw pain. She cont to have B knee pain that limits her recreational ability also, but has been increasing compliance w/HEP & strengthening.S he would benefit from cont PT to work on strengthening of postural stability, UE/LE stability, dec pain in B knee and neck/R shoudler/jaw/HOU along w/help pt return to typical activities w/o pain. Physical Therapy Plan Frequency and Duration Frequency of Treatment 1-2x/week Duration of Treatment 2 months Plan of Care Start Date 08/27/20 Plan of Care End Date 10/25/20 Therapeutic Interventions Therapeutic Interventions Aquatic Therapy,Balance Training,Gait Training,Home Exercise Program,Joint Mobilizations,Manual Therapy, Neuromuscular Re-education, Orthotic/Prosthetic Management ,Patient/Caregiver Education, Self-Care/Home Management,Soft Tissue Mobilization,Taping, Therapeutic Activities, Therapeutic Exercises Modalities Cold Pack/Ice Massage,Electric Stimulation,Hot Packs, Infrared Therapy,Iontophoresis ,Traction- Mechanical, Ultrasound Next Visit Focus/Plan Next Note Type Treatment Note Next Visit Plan STM to cervical spine, foam roll exercises, wall posture exercise, shoulder ext tband, cervical retraction, verbal review LE exercises
--- NOTE | 2020-08-27 18:41 | PT.OPPOC ---
Physical, Occupational & Speech Therapy At [facility] Current Diagnoses Pain in right knee (08/27/20) Cervicalgia (08/27/20) Pain in left leg (08/27/20) Difficulty in walking, not elsewhere classified (08/27/20) Abnormal posture (08/27/20) Weakness (08/27/20) Unspecified injury of right lower leg, initial encounter (08/27/20) Visit Care Team Role Provider Type Ирина Guevara MD Attending Provider Physician Family Provider Primary Care Provider Referring Provider Specialty: Family Practice Address: [address] [place] [address], [place], [address] Email: [email or web address] Plan Of Care PT-OP-T Assessment and Plan Start: 06/04/20 15:24 Freq: Status: Active Protocol: Document 08/27/20 14:34 [facility] (Rec: 08/27/20 15:18 [facility] [id number]) Physical Therapy Assessment Goals NDI Impairment 30/50 Short Term Goal (STG) Pt will dec score of NDI to no greater than 20/50 to show imrpoved funcitonal ability. STG Duration 09/24/20 [facility] Goal (LTG) Pt will dec score of NDI to no greater than 8/50 to show imrpoved funcitonal ability. LTG Duration 10/25/20 LEFS [employer] Goal (LTG) Pt will improve score to 75/80 to allow full return to typical activities. 08/05-n/t LTG Duration 10/25/20 gait [employer] Goal (LTG) Pt will show good gait mechanics with walking and running. 08/05-good mechanics demontrated with walking, have not tried to progress to running LTG Duration 10/25/20 balance Short Term Goal (STG) Pt will be able to do SLS without pain or lat leaning for 15 sec. STG Duration achieved [facility] Goal (LTG) Pt will be able to do SLS without pain or lat leaning for 30 sec. 08/05-24 sec R, L 30 sec 08/27-able to do 30 sec balance B but has more trunk tipping side<>side on R LTG Duration 10/25/20 strength Short Term Goal (STG) Pt will be indep with HEP. 07/17-doing some STG Duration achieved [employer] Goal (LTG) Pt will score 5/5 LE strength & UE strength & 5/5 EFTin all planes and 3/5 LPM to show improved stability in order to inc pt's ability to play with son and do typical activties without pain. 08/05-improving LTG Duration 10/25/20 exercise Short Term Goal (STG) Pt will be able to go for 2 mile walk on flat terrain without increased pain. 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 She has HOU frequently that is related to her neck pain, R shoulder pain and jaw pain. She cont to have B knee pain that limits her recreational ability also, but has been increasing compliance w/HEP & strengthening.S he would benefit from cont PT to work on strengthening of postural stability, UE/LE stability, dec pain in B knee and neck/R shoudler/jaw/HOU along w/help pt return to typical activities w/o pain. Physical Therapy Plan Frequency and Duration Frequency of Treatment 1-2x/week Duration of Treatment 2 months Plan of Care Start Date 08/27/20 Plan of Care End Date 10/25/20 Therapeutic Interventions Therapeutic Interventions Aquatic Therapy,Balance Training,Gait Training,Home Exercise Program,Joint Mobilizations,Manual Therapy, Neuromuscular Re-education, Orthotic/Prosthetic Management ,Patient/Caregiver Education, Self-Care/Home Management,Soft Tissue Mobilization,Taping, Therapeutic Activities, Therapeutic Exercises Modalities Cold Pack/Ice Massage,Electric Stimulation,Hot Packs, Infrared Therapy,Iontophoresis ,Traction- Mechanical, Ultrasound Next Visit Focus/Plan Next Note Type Treatment Note Next Visit Plan STM to cervical spine, foam roll exercises, wall posture exercise, shoulder ext tband, cervical retraction, verbal review LE exercises Plan of Care Dates Plan of Care Start Date 08/27/20 Plan of Care End Date 10/25/20 Electronically Signed by: Ирина Sandoval, PT 08/27/20 [id number] Please Sign and Return: I have reviewed this Plan of Care and certify that the skilled therapy services above are required to meet the patient?s needs. Physician Signature Date Printed Name and Credentials Clinical Instructor Signature Printed Name and Credentials
--- NOTE | 2020-09-01 13:45 | PT.OTN ---
Current Diagnoses Pain in right knee (09/01/20) Cervicalgia (09/01/20) Pain in left leg (09/01/20) Difficulty in walking, not elsewhere classified (09/01/20) Abnormal posture (09/01/20) Weakness (09/01/20) Unspecified injury of right lower leg, initial encounter (09/01/20) Physical Therapy Treatment Note PT-OP-A Visit Information Start: 06/04/20 15:24 Freq: Status: Active Protocol: Document 09/01/20 12:57 [facility] (Rec: 09/01/20 13:45 [facility] [id number]) Out-Patient Physical Therapy Visit Information Visit Information Visit Type Treatment Note Visit Note short session d/t insurance limits Visit Start Time 13:00 Visit Stop Time 13:37 Total Visit Minutes 37 Visit Number 11 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 NEck pain gives HAs. Pt reports neck pain post neck into R lat post neck & into eyeys. If she does not take advil then it turns into a migraine. She had recently had a migraine for 3 days and had to go t the ER and she felt better after their treatment. Pt repots neck is really stiff and thinks that is why she gets HAs. She hurt her neck and pulled a mm a couple years ago. Pt changed to softer pillow. Pt had symptoms of sinus infection recently. Pt reports she thinks neck got worse d/t R shoulder pain. Pt reports Xrays have been doen but no MRI. She did PT prior for shoudler and it made it worse 2 different times. Pt reports she has HOU since at least middle school. Family hx of migraines. Pt reports recently LBP has been irritated and post L leg has been really tight. IE for knees:During the summer , pt was running [place] [employer] and 5 miles every ohter day. A board broke and she landed with L leg through hole and R knee hit the gorund . Had to walk back 2 miles even though she was hurting. She had a big bruise. She keeps falling all the time recently. She loves to exercise and run but ever since nishant fell, she has been having trouble w/falling. She fell again on R knee the other day. Pt reports pain behind knee cap and feels like a pulled mm or something. Xrays showed no breaks. Pt has not been exercising much because nishant gets tired really fast and if she does too much her knee hurts so she cannot sleep. 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 pt reports sometimes has a hard time sleeping d/t R knee pain and shoulder problem that she tried PTf or but it didn't help. Pt reports after fall it feel slike R shoulder got worse and back pain got worse and R leg goes numb and cold sometimes. Pt reports knees and post ankles have been popping more. Pt likes to wear heels Prior Treatments and Tests Xrays-no issues, pain patches -help some PT-OP-C Subjective Start: 06/04/20 15:24 Freq: Status: Active Protocol: Document 09/01/20 12:57 [facility] (Rec: 09/01/20 13:45 [facility] [id number]) OP-PT Subjective Patient Comments Patient Comments Pt reports she notices HOU when nishant wakes up at night d/t pain in her ear then it goes ot head. PT-OP-D Balance Start: 06/04/20 15:24 Freq: Status: Active Protocol: Document 08/27/20 14:34 [facility] (Rec: 08/27/20 15:18 [facility] [id number]) Balance Tests Single Limb Standing Single Limb- Right 30 sec w/some trunk leaning Single Limb- Left 30 sec w/some trunk leanin PT-OP-F Manual Assessment Start: 06/04/20 15:24 Freq: Status: Active Protocol: Document 08/27/20 14:34 [facility] (Rec: 08/27/20 15:18 [facility] [id number]) Manual Assessments Soft Tissue Assessment Soft Tissue Mobility Assessment R>L soft tissue tightness (UT, LS, scalenes, SCM, c paraspinals) Joint Mobility Assessment Joint Mobility Assessment 1st rib elevated R PT-OP-G Mobility & Gait Start: 06/04/20 15:24 Freq: Status: Active Protocol: Document 06/11/20 13:00 [facility] (Rec: 06/11/20 13:48 [facility] [id number]) OP Gait Assessment Comments Gait Comments Pt has excessive pelvic rotation & dec push off PT-OP-J Posture/Palpation/Skin Start: 06/04/20 15:24 Freq: Status: Active Protocol: Document 08/27/20 14:34 [facility] (Rec: 08/27/20 15:18 [facility] [id number]) Posture Evaluation [facility] Postural Classification System [facility] Postural Classifications Posterior/Posterior Elbow Flexion Test 0 Lumbar Protective Mechanism Left AP 2 Lumbar Protective Mechanism Right AP 0 Lumbar Protective Mechanism Left PA 3 Lumbar Protective Mechanism Right PA 1 PT-OP-K Range of Motion Start: 06/04/20 15:24 Freq: Status: Active Protocol: Document 08/27/20 14:34 [facility] (Rec: 08/27/20 15:18 [facility] [id number]) Cervical Spine Range of Motion Cervical Spine Active Degrees Flexion 44 Extension 55 Rotation Left 52 Rotation Right 56 Lateral Flexion Left 41 Lateral Flexion Right 32 PT-OP-L Special Tests Start: 06/04/20 15:24 Freq: Status: Active Protocol: Document 08/27/20 14:34 [facility] (Rec: 08/27/20 15:18 [facility] [id number]) Special Tests Cervical Spine Special Tests Vertebrobasilar Test Results neg PT-OP-M Strength Start: 06/04/20 15:24 Freq: Status: Active Protocol: Document 08/27/20 14:34 [facility] (Rec: 08/27/20 15:18 [facility] [id number]) Shoulder Strength Shoulder Manual Muscle Testing Right Flexion 3+ Fair+ Extension 3+ Fair+ Abduction (C5) 3+ Fair+ External Rotation 3+ Fair+ Internal Rotation 4 Good Left Flexion 4 Good Extension 4 Good Abduction (C5) 4 Good External Rotation 4- Good- Internal Rotation 4 Good PT-OP-Q Treatments Start: 06/04/20 15:24 Freq: Status: Active Protocol: Document 09/01/20 12:57 [facility] (Rec: 09/01/20 13:45 [facility] [id number]) Therapeutic Exercises Sidelying Exercises roll & reach Side bilateral Reps/Minutes 10 Sitting Exercises retract\ Sitting Exercise Name cervical Reps/Minutes 8 Standing Exercises ext Standing Exercise Name shoulder ext Side bilateral Equipment Used L1 Reps/Minutes 2x10 wall posture Standing Exercise Name w/90/90 ER Side bilateral Reps/Minutes 4 min Manual Therapy Treatment Soft Tissue Mobilization cervical Body Location SOR, cervical paraspinals, UT, LS R>L Mobilization Type Rolling,Sustained Pressure Intensity/Depth Moderate Body Position Hooklying Comments superficial to moderate pressure Taping KT tape Body Location R knee Treatment Focus med patellar glideing & quad activation Type of Tape Kinesio Tape Skin Inspection good PT-OP-T Assessment and Plan Start: 06/04/20 15:24 Freq: Status: Active Protocol: Document 09/01/20 12:57 [facility] (Rec: 09/01/20 13:45 [facility] [id number]) Physical Therapy Assessment Goals NDI Impairment 30/50 Short Term Goal (STG) Pt will dec score of NDI to no greater than 20/50 to show imrpoved funcitonal ability. STG Duration 09/24/20 Fdc Goal (LTG) Pt will dec score of NDI to no greater than 8/50 to show imrpoved funcitonal ability. LTG Duration 10/25/20 LEFS Fdc Goal (LTG) Pt will improve score to 75/80 to allow full return to typical activities. 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 08/05-good mechanics demontrated with walking, have not tried to progress to running LTG Duration 10/25/20 balance Short Term Goal (STG) Pt will be able to do SLS without pain or lat leaning for 15 sec. STG Duration achieved Fdc Goal (LTG) Pt will be able to do SLS without pain or lat leaning for 30 sec. 08/05-24 sec R, L 30 sec 08/27-able to do 30 sec balance B but has more trunk tipping side<>side on R LTG Duration 10/25/20 strength Short Term Goal (STG) Pt will be indep with HEP. 07/17-doing some STG Duration achieved White [employer] Pan Tank Operator Goal (LTG) Pt will score 5/5 LE strength & UE strength & 5/5 EFTin all planes and 3/5 LPM to show improved stability in order to inc pt's ability to play with son and do typical activties without pain. 08/05-improving LTG Duration 10/25/20 exercise Short Term Goal (STG) Pt will be able to go for 2 mile walk on flat terrain without increased pain. 07/17-has walked 2-4 miles but typically does have pain at 2 miles 08/27-occ sparks slpints L and R knee w/walking STG Duration 09/24/20 White Sugar Pan Tank Operator Goal (LTG) Pt will be able to go for run for at least 1 mile without increased pain LTG Duration 10/25/20 Assessment Summary Assessment Pt able to do all exercises with out pain but required max ceuing for posture as she tends to have excessive lordosis w/inc kyphosis and w/ scap squeeze inc lordosis. Physical Therapy Plan Frequency and Duration Frequency of Treatment 1-2x/week Duration of Treatment 2 months Plan of Care Start Date 08/27/20 Plan of Care End Date 10/25/20 Next Visit Focus/Plan Next Note Type Treatment Note Next Visit Plan review exercises, work on cervical release
--- NOTE | 2020-09-04 14:28 | PT.OTN ---
Current Diagnoses Pain in right knee (09/04/20) Cervicalgia (09/04/20) Pain in left leg (09/04/20) Difficulty in walking, not elsewhere classified (09/04/20) Abnormal posture (09/04/20) Weakness (09/04/20) Unspecified injury of right lower leg, initial encounter (09/04/20) Physical Therapy Treatment Note PT-OP-A Visit Information Start: 06/04/20 15:24 Freq: Status: Active Protocol: Document 09/04/20 14:23 [facility] (Rec: 09/04/20 14:28 [facility] [id number]) Out-Patient Physical Therapy Visit Information Visit Information Visit Type Treatment Note Visit Note short session d/t insurance limits Visit Start Time 13:48 Visit Stop Time 14:22 Total Visit Minutes 34 Visit Number 12 Number of BRAKE LINER Visits 0 PT-OP-B Current Condition Start: 06/04/20 15:24 Freq: Status: Active Protocol: Document 08/27/20 14:34 [facility] (Rec: 08/27/20 15:18 [facility] [id number]) Current Condition History of Current Condition Onset Date December Current Complaints B knee pain & calves, neck & back History of Current Condition 08/27-Pt reports LBP for a couple days. NEck pain gives HAs. Pt reports neck pain post neck into R lat post neck & into eyeys. If she does not take advil then it turns into a migraine. She had recently had a migraine for 3 days and had to go t the ER and she felt better after their treatment. Pt repots neck is really stiff and thinks that is why she gets HAs. She hurt her neck and pulled a mm a couple years ago. Pt changed to softer pillow. Pt had symptoms of sinus infection recently. Pt reports she thinks neck got worse d/t R shoulder pain. Pt reports Xrays have been doen but no MRI. She did PT prior for shoudler and it made it worse 2 different times. Pt reports she has [place]O since at least middle school. Family hx of migraines. Pt reports recently LBP has been irritated and post L leg has been really tight. IE for knees:During the summer , pt was running [employer] and 5 miles every ohter day. A board broke and she landed with L leg through hole and R knee hit the gorund . Had to walk back 2 miles even though she was hurting. She had a big bruise. She keeps falling all the time recently. She loves to exercise and run but ever since nishant fell, she has been having trouble w/falling. She fell again on R knee the other day. Pt reports pain behind knee cap and feels like a pulled mm or something. Xrays showed no breaks. Pt has not been exercising much because nishant gets tired really fast and if she does too much her knee hurts so she cannot sleep. 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 pt reports sometimes has a hard time sleeping d/t R knee pain and shoulder problem that she tried PTf or but it didn't help. Pt reports after fall it feel slike R shoulder got worse and back pain got worse and R leg goes numb and cold sometimes. Pt reports knees and post ankles have been popping more. Pt likes to wear heels Prior Treatments and Tests Xrays-no issues, pain patches -help some PT-OP-C Subjective Start: 06/04/20 15:24 Freq: Status: Active Protocol: Document 09/04/20 14:23 [facility] (Rec: 09/04/20 14:28 [facility] [id number]) OP-PT Subjective Patient Comments Patient Comments Pt reports knee hurting some today and wearing small heeled boots. Notes neck stiffness PT-OP-D Balance Start: 06/04/20 15:24 Freq: Status: Active Protocol: Document 08/27/20 14:34 [facility] (Rec: 08/27/20 15:18 [facility] [id number]) Balance Tests Single Limb Standing Single Limb- Right 30 sec w/some trunk leaning Single Limb- Left 30 sec w/some trunk leanin PT-OP-F Manual Assessment Start: 06/04/20 15:24 Freq: Status: Active Protocol: Document 08/27/20 14:34 [facility] (Rec: 08/27/20 15:18 [facility] [id number]) Manual Assessments Soft Tissue Assessment Soft Tissue Mobility Assessment R>L soft tissue tightness (UT, LS, scalenes, SCM, c paraspinals) Joint Mobility Assessment Joint Mobility Assessment 1st rib elevated R PT-OP-G Mobility & Gait Start: 06/04/20 15:24 Freq: Status: Active Protocol: Document 06/11/20 13:00 [facility] (Rec: 06/11/20 13:48 [facility] [id number]) OP Gait Assessment Comments Gait Comments Pt has excessive pelvic rotation & dec push off PT-OP-J Posture/Palpation/Skin Start: 06/04/20 15:24 Freq: Status: Active Protocol: Document 08/27/20 14:34 [facility] (Rec: 08/27/20 15:18 [facility] [id number]) Posture Evaluation [facility] Postural Classification System [facility] Postural Classifications Posterior/Posterior Elbow Flexion Test 0 Lumbar Protective Mechanism Left AP 2 Lumbar Protective Mechanism Right AP 0 Lumbar Protective Mechanism Left PA 3 Lumbar Protective Mechanism Right PA 1 PT-OP-K Range of Motion Start: 06/04/20 15:24 Freq: Status: Active Protocol: Document 08/27/20 14:34 [facility] (Rec: 08/27/20 15:18 [facility] [id number]) Cervical Spine Range of Motion Cervical Spine Active Degrees Flexion 44 Extension 55 Rotation Left 52 Rotation Right 56 Lateral Flexion Left 41 Lateral Flexion Right 32 PT-OP-L Special Tests Start: 06/04/20 15:24 Freq: Status: Active Protocol: Document 08/27/20 14:34 [facility] (Rec: 08/27/20 15:18 [facility] [id number]) Special Tests Cervical Spine Special Tests Vertebrobasilar Test Results neg PT-OP-M Strength Start: 06/04/20 15:24 Freq: Status: Active Protocol: Document 08/27/20 14:34 [facility] (Rec: 08/27/20 15:18 [facility] [id number]) Shoulder Strength Shoulder Manual Muscle Testing Right Flexion 3+ Fair+ Extension 3+ Fair+ Abduction (C5) 3+ Fair+ External Rotation 3+ Fair+ Internal Rotation 4 Good Left Flexion 4 Good Extension 4 Good Abduction (C5) 4 Good External Rotation 4- Good- Internal Rotation 4 Good PT-OP-Q Treatments Start: 06/04/20 15:24 Freq: Status: Active Protocol: Document 09/04/20 14:23 [facility] (Rec: 09/04/20 14:28 [facility] [id number]) Therapeutic Exercises Sitting Exercises 1st rib Sitting Exercise Name self mob w/towel Side right Reps/Minutes 10 retract\ Sitting Exercise Name cervical Reps/Minutes 10 Manual Therapy Treatment Soft Tissue Mobilization cervical Body Location SOR, scalenes, SCM,cervical paraspinals, UT, LS R>L Mobilization Type Rolling,Sustained Pressure Intensity/Depth Moderate Body Position Hooklying Comments moderate pressure PT-OP-T Assessment and Plan Start: 06/04/20 15:24 Freq: Status: Active Protocol: Document 09/04/20 14:23 [facility] (Rec: 09/04/20 14:28 [facility] [id number]) Physical Therapy Assessment Goals NDI Impairment 30/50 Short Term Goal (STG) Pt will dec score of NDI to no greater than 20/50 to show imrpoved funcitonal ability. STG Duration 09/24/20 Retirement Goal (LTG) Pt will dec score of NDI to no greater than 8/50 to show imrpoved funcitonal ability. LTG Duration 10/25/20 LEFS Retirement Goal (LTG) Pt will improve score to 75/80 to allow full return to typical activities. 08/05-n/t LTG Duration 10/25/20 gait Retirement Goal (LTG) Pt will show good gait mechanics with walking and running. 08/05-good mechanics demontrated with walking, have not tried to progress to running LTG Duration 10/25/20 balance Short Term Goal (STG) Pt will be able to do SLS without pain or lat leaning for 15 sec. STG Duration achieved Floor Covering Printer Assistant Goal (LTG) Pt will be able to do SLS without pain or lat leaning for 30 sec. 08/05-24 sec R, L 30 sec 08/27-able to do 30 sec balance B but has more trunk tipping side<>side on R LTG Duration 10/25/20 strength Short Term Goal (STG) Pt will be indep with HEP. 07/17-doing some STG Duration achieved Floor Covering Printer Assistant Goal (LTG) Pt will score 5/5 LE strength & UE strength & 5/5 EFTin all planes and 3/5 LPM to show improved stability in order to inc pt's ability to play with son and do typical activties without pain. 08/05-improving LTG Duration 10/25/20 exercise Short Term Goal (STG) Pt will be able to go for 2 mile walk on flat terrain without increased pain. 07/17-has walked 2-4 miles but typically does have pain at 2 miles 08/27-occ sparks slpints L and R knee w/walking STG Duration 09/24/20 Floor Covering Printer Assistant Goal (LTG) Pt will be able to go for run for at least 1 mile without increased pain LTG Duration 10/25/20 Assessment Summary Assessment Pt tolerated deepr pressure with soft tissue massage and had imrpoved rotation passively after manual treatment. Pt required cueing still for chin tucks Physical Therapy Plan Frequency and Duration Frequency of Treatment 1-2x/week Duration of Treatment 2 months Plan of Care Start Date 08/27/20 Plan of Care End Date 10/25/20 Next Visit Focus/Plan Next Note Type Treatment Note Next Visit Plan review exercises, work on cervical release
--- NOTE | 2020-09-08 13:32 | PT-OP ANOTE ---
Pt called re: no show and reports she had hectic day and forgot appt. Reminded of her next appt.
--- NOTE | 2020-09-10 13:44 | PT.OTN ---
Current Diagnoses Pain in right knee (09/10/20) Cervicalgia (09/10/20) Pain in left leg (09/10/20) Difficulty in walking, not elsewhere classified (09/10/20) Abnormal posture (09/10/20) Weakness (09/10/20) Unspecified injury of right lower leg, initial encounter (09/10/20) Physical Therapy Treatment Note PT-OP-A Visit Information Start: 06/04/20 15:24 Freq: Status: Active Protocol: Document 09/10/20 12:59 [facility] (Rec: 09/10/20 13:44 [facility] [id number]) Out-Patient Physical Therapy Visit Information Visit Information Visit Type Treatment Note Visit Note short session d/t insurance limits Visit Start Time 13:01 Visit Stop Time 13:37 Total Visit Minutes 36 Visit Number 13 Number of DEVELOPMENTAL WRITING INSTRUCTOR Visits 0 PT-OP-B Current Condition Start: 06/04/20 15:24 Freq: Status: Active Protocol: Document 08/27/20 14:34 [facility] (Rec: 08/27/20 15:18 [facility] [id number]) Current Condition History of Current Condition Onset Date December Current Complaints B knee pain & calves, neck & back History of Current Condition 08/27-Pt reports LBP for a couple days. NEck pain gives HAs. Pt reports neck pain post neck into R lat post neck & into eyeys. If she does not take advil then it turns into a migraine. She had recently had a migraine for 3 days and had to go t the ER and she felt better after their treatment. Pt repots neck is really stiff and thinks that is why she gets HAs. She hurt her neck and pulled a mm a couple years ago. Pt changed to softer pillow. Pt had symptoms of sinus infection recently. Pt reports she thinks neck got worse d/t R shoulder pain. Pt reports Xrays have been doen but no MRI. She did PT prior for shoudler and it made it worse 2 different times. Pt reports she has HOU since at least middle school. Family hx of migraines. Pt reports recently LBP has been irritated and post L leg has been really tight. IE for knees:During the summer , pt was running [place] and 5 miles every ohter day. A board broke and she landed with L leg through hole and R knee hit the gorund . Had to walk back 2 miles even though she was hurting. She had a big bruise. She keeps falling all the time recently. She loves to exercise and run but ever since seliliana fell, she has been having trouble w/falling. She fell again on R knee the other day. Pt reports pain behind knee cap and feels like a pulled mm or something. Xrays showed no breaks. Pt has not been exercising much because nishant gets tired really fast and if she does too much her knee hurts so she cannot sleep. 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 pt reports sometimes has a hard time sleeping d/t R knee pain and shoulder problem that she tried PTf or but it didn't help. Pt reports after fall it feel slike R shoulder got worse and back pain got worse and R leg goes numb and cold sometimes. Pt reports knees and post ankles have been popping more. Pt likes to wear heels Prior Treatments and Tests Xrays-no issues, pain patches -help some PT-OP-C Subjective Start: 06/04/20 15:24 Freq: Status: Active Protocol: Document 09/10/20 12:59 [facility] (Rec: 09/10/20 13:44 [facility] [id number]) OP-PT Subjective Patient Comments Patient Comments Pt reprots she is sore in shoulders and neck and all over along w/ R knee after doing 4 hours of yard work for mom PT-OP-D Balance Start: 06/04/20 15:24 Freq: Status: Active Protocol: Document 08/27/20 14:34 [facility] (Rec: 08/27/20 15:18 [facility] [id number]) Balance Tests Single Limb Standing Single Limb- Right 30 sec w/some trunk leaning Single Limb- Left 30 sec w/some trunk leanin PT-OP-F Manual Assessment Start: 06/04/20 15:24 Freq: Status: Active Protocol: Document 08/27/20 14:34 [facility] (Rec: 08/27/20 15:18 [facility] [id number]) Manual Assessments Soft Tissue Assessment Soft Tissue Mobility Assessment R>L soft tissue tightness (UT, LS, scalenes, SCM, c paraspinals) Joint Mobility Assessment Joint Mobility Assessment 1st rib elevated R PT-OP-G Mobility & Gait Start: 06/04/20 15:24 Freq: Status: Active Protocol: Document 06/11/20 13:00 [facility] (Rec: 06/11/20 13:48 [facility] [id number]) OP Gait Assessment Comments Gait Comments Pt has excessive pelvic rotation & dec push off PT-OP-J Posture/Palpation/Skin Start: 06/04/20 15:24 Freq: Status: Active Protocol: Document 08/27/20 14:34 [facility] (Rec: 08/27/20 15:18 [facility] [id number]) Posture Evaluation [facility] Postural Classification System [facility] Postural Classifications Posterior/Posterior Elbow Flexion Test 0 Lumbar Protective Mechanism Left AP 2 Lumbar Protective Mechanism Right AP 0 Lumbar Protective Mechanism Left PA 3 Lumbar Protective Mechanism Right PA 1 PT-OP-K Range of Motion Start: 06/04/20 15:24 Freq: Status: Active Protocol: Document 08/27/20 14:34 [facility] (Rec: 08/27/20 15:18 [facility] [id number]) Cervical Spine Range of Motion Cervical Spine Active Degrees Flexion 44 Extension 55 Rotation Left 52 Rotation Right 56 Lateral Flexion Left 41 Lateral Flexion Right 32 PT-OP-L Special Tests Start: 06/04/20 15:24 Freq: Status: Active Protocol: Document 08/27/20 14:34 [facility] (Rec: 08/27/20 15:18 [facility] [id number]) Special Tests Cervical Spine Special Tests Vertebrobasilar Test Results neg PT-OP-M Strength Start: 06/04/20 15:24 Freq: Status: Active Protocol: Document 08/27/20 14:34 [facility] (Rec: 08/27/20 15:18 [facility] [id number]) Shoulder Strength Shoulder Manual Muscle Testing Right Flexion 3+ Fair+ Extension 3+ Fair+ Abduction (C5) 3+ Fair+ External Rotation 3+ Fair+ Internal Rotation 4 Good Left Flexion 4 Good Extension 4 Good Abduction (C5) 4 Good External Rotation 4- Good- Internal Rotation 4 Good PT-OP-Q Treatments Start: 06/04/20 15:24 Freq: Status: Active Protocol: Document 09/10/20 12:59 [facility] (Rec: 09/10/20 13:44 [facility] [id number]) Therapeutic Exercises Supine Exercises core Supine Exercise Name B flex isomtric Side bilateral Reps/Minutes 30 sec faom roll Supine Exercise Name flex, Habd Side bilateral Reps/Minutes 10 ea Sidelying Exercises roll & reach Side bilateral Reps/Minutes 10 Sitting Exercises 1st rib Sitting Exercise Name self mob w/towel Side right Reps/Minutes 10 retract\ Sitting Exercise Name cervical Reps/Minutes 7 Standing Exercises ext Standing Exercise Name shoulder ext Side bilateral Equipment Used L1 Reps/Minutes 2x10 Comments max cueing wall posture Standing Exercise Name w/90/90 ER Side bilateral Reps/Minutes 10 Manual Therapy Treatment Soft Tissue Mobilization cervical Body Location R UT, LS, rhomboids B & cervical & tspine paraspinals Mobilization Type Rolling,Sustained Pressure Intensity/Depth Superficial Body Position Prone Joint Mobilizations tspine Joint tspine T3-5 Direction PA Grade I PT-OP-T Assessment and Plan Start: 06/04/20 15:24 Freq: Status: Active Protocol: Document 09/10/20 12:59 [facility] (Rec: 09/10/20 13:44 [facility] [id number]) Physical Therapy Assessment Goals NDI Impairment 30/50 Short Term Goal (STG) Pt will dec score of NDI to no greater than 20/50 to show imrpoved funcitonal ability. STG Duration 09/24/20 High Tension Tester Goal (LTG) Pt will dec score of NDI to no greater than 8/50 to show imrpoved funcitonal ability. LTG Duration 10/25/20 LEFS Fpc Goal (LTG) Pt will improve score to 75/80 to allow full return to typical activities. 08/05-n/t LTG Duration 10/25/20 gait Fpc Goal (LTG) Pt will show good gait mechanics with walking and running. 08/05-good mechanics demontrated with walking, have not tried to progress to running LTG Duration 10/25/20 balance Short Term Goal (STG) Pt will be able to do SLS without pain or lat leaning for 15 sec. STG Duration achieved High Tension Tester Goal (LTG) Pt will be able to do SLS without pain or lat leaning for 30 sec. 08/05-24 sec R, L 30 sec 08/27-able to do 30 sec balance B but has more trunk tipping side<>side on R LTG Duration 10/25/20 strength Short Term Goal (STG) Pt will be indep with HEP. 07/17-doing some STG Duration achieved High Tension Tester Goal (LTG) Pt will score 5/5 LE strength & UE strength & 5/5 EFTin all planes and 3/5 LPM to show improved stability in order to inc pt's ability to play with son and do typical activties without pain. 08/05-improving LTG Duration 10/25/20 exercise Short Term Goal (STG) Pt will be able to go for 2 mile walk on flat terrain without increased pain. 07/17-has walked 2-4 miles but typically does have pain at 2 miles 08/27-occ sparks slpints L and R knee w/walking STG Duration 09/24/20 Fpc Goal (LTG) Pt will be able to go for run for at least 1 mile without increased pain LTG Duration 10/25/20 Assessment Summary Assessment Pt unable to tolerate t1 mob even w/grade 1 pressure so shwoed pt how to self mob to attempt to get movement. D/t stiffness in tspine, is likely part of why pt gets neck pain d/t rounding fwd posture. She was unable to tolerate much pressure today d/t pain. Physical Therapy Plan Frequency and Duration Frequency of Treatment 1-2x/week Duration of Treatment 2 months Plan of Care Start Date 08/27/20 Plan of Care End Date 10/25/20 Next Visit Focus/Plan Next Note Type Treatment Note Next Visit Plan work on cervical stability, work on cervical release
--- NOTE | 2020-09-15 13:46 | PT.OTN ---
Current Diagnoses Pain in right knee (09/15/20) Cervicalgia (09/15/20) Pain in left leg (09/15/20) Difficulty in walking, not elsewhere classified (09/15/20) Abnormal posture (09/15/20) Weakness (09/15/20) Unspecified injury of right lower leg, initial encounter (09/15/20) Physical Therapy Treatment Note PT-OP-A Visit Information Start: 06/04/20 15:24 Freq: Status: Active Protocol: Document 09/15/20 13:16 [facility] (Rec: 09/15/20 13:46 [facility] [id number]) Out-Patient Physical Therapy Visit Information Visit Information Visit Type Treatment Note Visit Start Time 13:18 Visit Stop Time 13:43 Total Visit Minutes 25 Visit Number 14 Number of FURNITURE BUILDER Visits 0 PT-OP-B Current Condition Start: 06/04/20 15:24 Freq: Status: Active Protocol: Document 08/27/20 14:34 [facility] (Rec: 08/27/20 15:18 [facility] [id number]) Current Condition History of Current Condition Onset Date December Current Complaints B knee pain & calves, neck & back History of Current Condition 08/27-Pt reports LBP for a couple days. NEck pain gives HAs. Pt reports neck pain post neck into R lat post neck & into eyeys. If she does not take advil then it turns into a migraine. She had recently had a migraine for 3 days and had to go t the ER and she felt better after their treatment. Pt repots neck is really stiff and thinks that is why she gets HAs. She hurt her neck and pulled a mm a couple years ago. Pt changed to softer pillow. Pt had symptoms of sinus infection recently. Pt reports she thinks neck got worse d/t R shoulder pain. Pt reports Xrays have been doen but no MRI. She did PT prior for shoudler and it made it worse 2 different times. Pt reports she has HOU since at least middle school. Family hx of migraines. Pt reports recently LBP has been irritated and post L leg has been really tight. IE for knees:During the summer , pt was running [place] and 5 miles every ohter day. A board broke and she landed with L leg through hole and R knee hit the gorund . Had to walk back 2 miles even though she was hurting. She had a big bruise. She keeps falling all the time recently. She loves to exercise and run but ever since seliliana fell, she has been having trouble w/falling. She fell again on R knee the other day. Pt reports pain behind knee cap and feels like a pulled mm or something. Xrays showed no breaks. Pt has not been exercising much because nishant gets tired really fast and if she does too much her knee hurts so she cannot sleep. 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 pt reports sometimes has a hard time sleeping d/t R knee pain and shoulder problem that she tried PTf or but it didn't help. Pt reports after fall it feel slike R shoulder got worse and back pain got worse and R leg goes numb and cold sometimes. Pt reports knees and post ankles have been popping more. Pt likes to wear heels Prior Treatments and Tests Xrays-no issues, pain patches -help some PT-OP-C Subjective Start: 06/04/20 15:24 Freq: Status: Active Protocol: Document 09/15/20 13:16 [facility] (Rec: 09/15/20 13:46 [facility] [id number]) OP-PT Subjective Patient Comments Patient Comments Pt reprots awful migraine. was not sure if she was gonna come PT-OP-D Balance Start: 06/04/20 15:24 Freq: Status: Active Protocol: Document 08/27/20 14:34 [facility] (Rec: 08/27/20 15:18 [facility] [id number]) Balance Tests Single Limb Standing Single Limb- Right 30 sec w/some trunk leaning Single Limb- Left 30 sec w/some trunk leanin PT-OP-F Manual Assessment Start: 06/04/20 15:24 Freq: Status: Active Protocol: Document 08/27/20 14:34 [facility] (Rec: 08/27/20 15:18 [facility] [id number]) Manual Assessments Soft Tissue Assessment Soft Tissue Mobility Assessment R>L soft tissue tightness (UT, LS, scalenes, SCM, c paraspinals) Joint Mobility Assessment Joint Mobility Assessment 1st rib elevated R PT-OP-G Mobility & Gait Start: 06/04/20 15:24 Freq: Status: Active Protocol: Document 06/11/20 13:00 [facility] (Rec: 06/11/20 13:48 [facility] [id number]) OP Gait Assessment Comments Gait Comments Pt has excessive pelvic rotation & dec push off PT-OP-J Posture/Palpation/Skin Start: 06/04/20 15:24 Freq: Status: Active Protocol: Document 08/27/20 14:34 [facility] (Rec: 08/27/20 15:18 [facility] [id number]) Posture Evaluation [facility] Postural Classification System [facility] Postural Classifications Posterior/Posterior Elbow Flexion Test 0 Lumbar Protective Mechanism Left AP 2 Lumbar Protective Mechanism Right AP 0 Lumbar Protective Mechanism Left PA 3 Lumbar Protective Mechanism Right PA 1 PT-OP-K Range of Motion Start: 06/04/20 15:24 Freq: Status: Active Protocol: Document 08/27/20 14:34 [facility] (Rec: 08/27/20 15:18 [facility] [id number]) Cervical Spine Range of Motion Cervical Spine Active Degrees Flexion 44 Extension 55 Rotation Left 52 Rotation Right 56 Lateral Flexion Left 41 Lateral Flexion Right 32 PT-OP-L Special Tests Start: 06/04/20 15:24 Freq: Status: Active Protocol: Document 08/27/20 14:34 [facility] (Rec: 08/27/20 15:18 [facility] [id number]) Special Tests Cervical Spine Special Tests Vertebrobasilar Test Results neg PT-OP-M Strength Start: 06/04/20 15:24 Freq: Status: Active Protocol: Document 08/27/20 14:34 [facility] (Rec: 08/27/20 15:18 [facility] [id number]) Shoulder Strength Shoulder Manual Muscle Testing Right Flexion 3+ Fair+ Extension 3+ Fair+ Abduction (C5) 3+ Fair+ External Rotation 3+ Fair+ Internal Rotation 4 Good Left Flexion 4 Good Extension 4 Good Abduction (C5) 4 Good External Rotation 4- Good- Internal Rotation 4 Good PT-OP-Q Treatments Start: 06/04/20 15:24 Freq: Status: Active Protocol: Document 09/15/20 13:16 [facility] (Rec: 09/15/20 13:46 [facility] [id number]) Manual Therapy Treatment Soft Tissue Mobilization cervical Body Location R UT, suboccipital, temporalis , Mobilization Type Rolling,Sustained Pressure Intensity/Depth Superficial Body Position Hooklying PT-OP-T Assessment and Plan Start: 06/04/20 15:24 Freq: Status: Active Protocol: Document 09/15/20 13:16 [facility] (Rec: 09/15/20 13:46 [facility] [id number]) Physical Therapy Assessment Goals NDI Impairment 30/50 Short Term Goal (STG) Pt will dec score of NDI to no greater than 20/50 to show imrpoved funcitonal ability. STG Duration 09/24/20 Alf Goal (LTG) Pt will dec score of NDI to no greater than 8/50 to show imrpoved funcitonal ability. LTG Duration 10/25/20 LEFS Alf Goal (LTG) Pt will improve score to 75/80 to allow full return to typical activities. 08/05-n/t LTG Duration 10/25/20 gait Alf Goal (LTG) Pt will show good gait mechanics with walking and running. 08/05-good mechanics demontrated with walking, have not tried to progress to running LTG Duration 10/25/20 balance Short Term Goal (STG) Pt will be able to do SLS without pain or lat leaning for 15 sec. STG Duration achieved Alf Goal (LTG) Pt will be able to do SLS without pain or lat leaning for 30 sec. 08/05-24 sec R, L 30 sec 08/27-able to do 30 sec balance B but has more trunk tipping side<>side on R LTG Duration 10/25/20 strength Short Term Goal (STG) Pt will be indep with HEP. 07/17-doing some STG Duration achieved Dye House Helper Goal (LTG) Pt will score 5/5 LE strength & UE strength & 5/5 EFTin all planes and 3/5 LPM to show improved stability in order to inc pt's ability to play with son and do typical activties without pain. 08/05-improving LTG Duration 10/25/20 exercise Short Term Goal (STG) Pt will be able to go for 2 mile walk on flat terrain without increased pain. 07/17-has walked 2-4 miles but typically does have pain at 2 miles 08/27-occ sparks slpints L and R knee w/walking STG Duration 09/24/20 Dye House Helper Goal (LTG) Pt will be able to go for run for at least 1 mile without increased pain LTG Duration 10/25/20 Assessment Summary Assessment Very gentle soft tissue work done d/t pt being sensative to even ligth pressure. She felt pain into head even w/gentle STM to UT. Pt encouraged to f/ u w/MD re: ortho and sleep consults Physical Therapy Plan Frequency and Duration Frequency of Treatment 1-2x/week Duration of Treatment 2 months Plan of Care Start Date 08/27/20 Plan of Care End Date 10/25/20 Next Visit Focus/Plan Next Note Type Treatment Note Next Visit Plan work on cervical stability, work on cervical release
--- NOTE | 2020-09-18 13:51 | PT.OTN ---
Current Diagnoses Pain in right knee (09/18/20) Cervicalgia (09/18/20) Pain in left leg (09/18/20) Difficulty in walking, not elsewhere classified (09/18/20) Abnormal posture (09/18/20) Weakness (09/18/20) Unspecified injury of right lower leg, initial encounter (09/18/20) Physical Therapy Treatment Note PT-OP-A Visit Information Start: 06/04/20 15:24 Freq: Status: Active Protocol: Document 09/18/20 12:58 [facility] (Rec: 09/18/20 13:51 [facility] [id number]) Out-Patient Physical Therapy Visit Information Visit Information Visit Type Treatment Note Visit Start Time 13:23 Visit Stop Time 14:46 Total Visit Minutes 23 Visit Number 15 Number of HEALTH OCCUPATIONS TEACHER Visits 0 PT-OP-B Current Condition Start: 06/04/20 15:24 Freq: Status: Active Protocol: Document 08/27/20 14:34 [facility] (Rec: 08/27/20 15:18 [facility] [id number]) Current Condition History of Current Condition Onset Date December Current Complaints B knee pain & calves, neck & back History of Current Condition 08/27-Pt reports LBP for a couple days. NEck pain gives HAs. Pt reports neck pain post neck into R lat post neck & into eyeys. If she does not take advil then it turns into a migraine. She had recently had a migraine for 3 days and had to go t the ER and she felt better after their treatment. Pt repots neck is really stiff and thinks that is why she gets HAs. She hurt her neck and pulled a mm a couple years ago. Pt changed to softer pillow. Pt had symptoms of sinus infection recently. Pt reports she thinks neck got worse d/t R shoulder pain. Pt reports Xrays have been doen but no MRI. She did PT prior for shoudler and it made it worse 2 different times. Pt reports she has HOU since at least middle school. Family hx of migraines. Pt reports recently LBP has been irritated and post L leg has been really tight. IE for knees:During the summer , pt was running [place] and 5 miles every ohter day. A board broke and she landed with L leg through hole and R knee hit the gorund . Had to walk back 2 miles even though she was hurting. She had a big bruise. She keeps falling all the time recently. She loves to exercise and run but ever since nishant fell, she has been having trouble w/falling. She fell again on R knee the other day. Pt reports pain behind knee cap and feels like a pulled mm or something. Xrays showed no breaks. Pt has not been exercising much because nishant gets tired really fast and if she does too much her knee hurts so she cannot sleep. 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 pt reports sometimes has a hard time sleeping d/t R knee pain and shoulder problem that she tried PTf or but it didn't help. Pt reports after fall it feel slike R shoulder got worse and back pain got worse and R leg goes numb and cold sometimes. Pt reports knees and post ankles have been popping more. Pt likes to wear heels Prior Treatments and Tests Xrays-no issues, pain patches -help some PT-OP-C Subjective Start: 06/04/20 15:24 Freq: Status: Active Protocol: Document 09/18/20 12:58 [facility] (Rec: 09/18/20 13:51 [facility] [id number]) OP-PT Subjective Patient Comments Patient Comments Pt reports after more meds Tues, migraine was better. Has not looked at message from PT-OP-D Balance Start: 06/04/20 15:24 Freq: Status: Active Protocol: Document 08/27/20 14:34 [facility] (Rec: 08/27/20 15:18 [facility] [id number]) Balance Tests Single Limb Standing Single Limb- Right 30 sec w/some trunk leaning Single Limb- Left 30 sec w/some trunk leanin PT-OP-F Manual Assessment Start: 06/04/20 15:24 Freq: Status: Active Protocol: Document 08/27/20 14:34 [facility] (Rec: 08/27/20 15:18 [facility] [id number]) Manual Assessments Soft Tissue Assessment Soft Tissue Mobility Assessment R>L soft tissue tightness (UT, LS, scalenes, SCM, c paraspinals) Joint Mobility Assessment Joint Mobility Assessment 1st rib elevated R PT-OP-G Mobility & Gait Start: 06/04/20 15:24 Freq: Status: Active Protocol: Document 06/11/20 13:00 [facility] (Rec: 06/11/20 13:48 [facility] [id number]) OP Gait Assessment Comments Gait Comments Pt has excessive pelvic rotation & dec push off PT-OP-J Posture/Palpation/Skin Start: 06/04/20 15:24 Freq: Status: Active Protocol: Document 08/27/20 14:34 [facility] (Rec: 08/27/20 15:18 [facility] [id number]) Posture Evaluation [facility] Postural Classification System [facility] Postural Classifications Posterior/Posterior Elbow Flexion Test 0 Lumbar Protective Mechanism Left AP 2 Lumbar Protective Mechanism Right AP 0 Lumbar Protective Mechanism Left PA 3 Lumbar Protective Mechanism Right PA 1 PT-OP-K Range of Motion Start: 06/04/20 15:24 Freq: Status: Active Protocol: Document 08/27/20 14:34 [facility] (Rec: 08/27/20 15:18 [facility] [id number]) Cervical Spine Range of Motion Cervical Spine Active Degrees Flexion 44 Extension 55 Rotation Left 52 Rotation Right 56 Lateral Flexion Left 41 Lateral Flexion Right 32 PT-OP-L Special Tests Start: 06/04/20 15:24 Freq: Status: Active Protocol: Document 08/27/20 14:34 [facility] (Rec: 08/27/20 15:18 [facility] [id number]) Special Tests Cervical Spine Special Tests Vertebrobasilar Test Results neg PT-OP-M Strength Start: 06/04/20 15:24 Freq: Status: Active Protocol: Document 08/27/20 14:34 [facility] (Rec: 08/27/20 15:18 [facility] [id number]) Shoulder Strength Shoulder Manual Muscle Testing Right Flexion 3+ Fair+ Extension 3+ Fair+ Abduction (C5) 3+ Fair+ External Rotation 3+ Fair+ Internal Rotation 4 Good Left Flexion 4 Good Extension 4 Good Abduction (C5) 4 Good External Rotation 4- Good- Internal Rotation 4 Good PT-OP-Q Treatments Start: 06/04/20 15:24 Freq: Status: Active Protocol: Document 09/18/20 12:58 [facility] (Rec: 09/18/20 13:51 [facility] [id number]) Therapeutic Exercises Sidelying Exercises roll & reach Side bilateral Reps/Minutes 10 Sitting Exercises retract\ Sitting Exercise Name cervical Reps/Minutes 15 Comments maax cues Standing Exercises ER Standing Exercise Name shoulder Side bilateral Equipment Used L1 Reps/Minutes 15 ext Standing Exercise Name shoulder row Side bilateral Equipment Used L1 Reps/Minutes 2x10 Comments max cueing wall posture Standing Exercise Name w/90/90 ER Side bilateral Reps/Minutes 10 Manual Therapy Treatment Soft Tissue Mobilization cervical Body Location B UT, suboccipital, LS, scalenes, SCM Mobilization Type Rolling,Sustained Pressure Intensity/Depth Moderate Body Position Hooklying PT-OP-T Assessment and Plan Start: 06/04/20 15:24 Freq: Status: Active Protocol: Document 09/18/20 12:58 [facility] (Rec: 09/18/20 13:51 [facility] [id number]) Physical Therapy Assessment Goals NDI Impairment 30/50 Short Term Goal (STG) Pt will dec score of NDI to no greater than 20/50 to show imrpoved funcitonal ability. STG Duration 09/24/20 Custodial Goal (LTG) Pt will dec score of NDI to no greater than 8/50 to show imrpoved funcitonal ability. LTG Duration 10/25/20 LEFS Commercial Collector Goal (LTG) Pt will improve score to 75/80 to allow full return to typical activities. 08/05-n/t LTG Duration 10/25/20 gait Custodial Goal (LTG) Pt will show good gait mechanics with walking and running. 08/05-good mechanics demontrated with walking, have not tried to progress to running LTG Duration 10/25/20 balance Short Term Goal (STG) Pt will be able to do SLS without pain or lat leaning for 15 sec. STG Duration achieved Custodial Goal (LTG) Pt will be able to do SLS without pain or lat leaning for 30 sec. 08/05-24 sec R, L 30 sec 08/27-able to do 30 sec balance B but has more trunk tipping side<>side on R LTG Duration 10/25/20 strength Short Term Goal (STG) Pt will be indep with HEP. 07/17-doing some STG Duration achieved Commercial Collector Goal (LTG) Pt will score 5/5 LE strength & UE strength & 5/5 EFTin all planes and 3/5 LPM to show improved stability in order to inc pt's ability to play with son and do typical activties without pain. 08/05-improving LTG Duration 10/25/20 exercise Short Term Goal (STG) Pt will be able to go for 2 mile walk on flat terrain without increased pain. 07/17-has walked 2-4 miles but typically does have pain at 2 miles 08/27-occ sparks slpints L and R knee w/walking STG Duration 09/24/20 Custodial Goal (LTG) Pt will be able to go for run for at least 1 mile without increased pain LTG Duration 10/25/20 Assessment Summary Assessment max cueing required w/ exercises re: no scap elevation & for motion for cervical retraction. Improved tolerance to STM today Physical Therapy Plan Frequency and Duration Frequency of Treatment 1-2x/week Duration of Treatment 2 months Plan of Care Start Date 08/27/20 Plan of Care End Date 10/25/20 Next Visit Focus/Plan Next Note Type Treatment Note
--- NOTE | 2020-09-22 13:46 | PT.OTN ---
Current Diagnoses Pain in right knee (09/22/20) Cervicalgia (09/22/20) Pain in left leg (09/22/20) Difficulty in walking, not elsewhere classified (09/22/20) Abnormal posture (09/22/20) Weakness (09/22/20) Unspecified injury of right lower leg, initial encounter (09/22/20) Physical Therapy Treatment Note PT-OP-A Visit Information Start: 06/04/20 15:24 Freq: Status: Active Protocol: Document 09/22/20 12:57 [facility] (Rec: 09/22/20 13:45 [facility] [id number]) Out-Patient Physical Therapy Visit Information Visit Information Visit Type Treatment Note Visit Start Time 13:01 Visit Stop Time 13:37 Total Visit Minutes 36 Visit Number 16 Number of SMOKE CHASER Visits 0 PT-OP-B Current Condition Start: 06/04/20 15:24 Freq: Status: Active Protocol: Document 08/27/20 14:34 [facility] (Rec: 08/27/20 15:18 [facility] [id number]) Current Condition History of Current Condition Onset Date December Current Complaints B knee pain & calves, neck & back History of Current Condition 08/27-Pt reports LBP for a couple days. NEck pain gives HAs. Pt reports neck pain post neck into R lat post neck & into eyeys. If she does not take advil then it turns into a migraine. She had recently had a migraine for 3 days and had to go t the ER and she felt better after their treatment. Pt repots neck is really stiff and thinks that is why she gets HAs. She hurt her neck and pulled a mm a couple years ago. Pt changed to softer pillow. Pt had symptoms of sinus infection recently. Pt reports she thinks neck got worse d/t R shoulder pain. Pt reports Xrays have been doen but no MRI. She did PT prior for shoudler and it made it worse 2 different times. Pt reports she has HOU since at least middle school. Family hx of migraines. Pt reports recently LBP has been irritated and post L leg has been really tight. IE for knees:During the summer , pt was running [place] and 5 miles every ohter day. A board broke and she landed with L leg through hole and R knee hit the gorund . Had to walk back 2 miles even though she was hurting. She had a big bruise. She keeps falling all the time recently. She loves to exercise and run but ever since nishant fell, she has been having trouble w/falling. She fell again on R knee the other day. Pt reports pain behind knee cap and feels like a pulled mm or something. Xrays showed no breaks. Pt has not been exercising much because nishant gets tired really fast and if she does too much her knee hurts so she cannot sleep. 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 pt reports sometimes has a hard time sleeping d/t R knee pain and shoulder problem that she tried PTf or but it didn't help. Pt reports after fall it feel slike R shoulder got worse and back pain got worse and R leg goes numb and cold sometimes. Pt reports knees and post ankles have been popping more. Pt likes to wear heels Prior Treatments and Tests Xrays-no issues, pain patches -help some PT-OP-C Subjective Start: 06/04/20 15:24 Freq: Status: Active Protocol: Document 09/22/20 12:57 [facility] (Rec: 09/22/20 13:45 [facility] [id number]) OP-PT Subjective Patient Comments Patient Comments Pt reports only 1 small HOU this weekend that went away. NOtes R knee and L sparks hurts when hiking. Has not followed up w/ortho yet. neck and shoulder feel tight and sore PT-OP-D Balance Start: 06/04/20 15:24 Freq: Status: Active Protocol: Document 08/27/20 14:34 [facility] (Rec: 08/27/20 15:18 [facility] [id number]) Balance Tests Single Limb Standing Single Limb- Right 30 sec w/some trunk leaning Single Limb- Left 30 sec w/some trunk leanin PT-OP-F Manual Assessment Start: 06/04/20 15:24 Freq: Status: Active Protocol: Document 08/27/20 14:34 [facility] (Rec: 08/27/20 15:18 [facility] [id number]) Manual Assessments Soft Tissue Assessment Soft Tissue Mobility Assessment R>L soft tissue tightness (UT, LS, scalenes, SCM, c paraspinals) Joint Mobility Assessment Joint Mobility Assessment 1st rib elevated R PT-OP-G Mobility & Gait Start: 06/04/20 15:24 Freq: Status: Active Protocol: Document 06/11/20 13:00 [facility] (Rec: 06/11/20 13:48 [facility] [id number]) OP Gait Assessment Comments Gait Comments Pt has excessive pelvic rotation & dec push off PT-OP-J Posture/Palpation/Skin Start: 06/04/20 15:24 Freq: Status: Active Protocol: Document 08/27/20 14:34 [facility] (Rec: 08/27/20 15:18 [facility] [id number]) Posture Evaluation [facility] Postural Classification System [facility] Postural Classifications Posterior/Posterior Elbow Flexion Test 0 Lumbar Protective Mechanism Left AP 2 Lumbar Protective Mechanism Right AP 0 Lumbar Protective Mechanism Left PA 3 Lumbar Protective Mechanism Right PA 1 PT-OP-K Range of Motion Start: 06/04/20 15:24 Freq: Status: Active Protocol: Document 08/27/20 14:34 [facility] (Rec: 08/27/20 15:18 [facility] [id number]) Cervical Spine Range of Motion Cervical Spine Active Degrees Flexion 44 Extension 55 Rotation Left 52 Rotation Right 56 Lateral Flexion Left 41 Lateral Flexion Right 32 PT-OP-L Special Tests Start: 06/04/20 15:24 Freq: Status: Active Protocol: Document 08/27/20 14:34 [facility] (Rec: 08/27/20 15:18 [facility] [id number]) Special Tests Cervical Spine Special Tests Vertebrobasilar Test Results neg PT-OP-M Strength Start: 06/04/20 15:24 Freq: Status: Active Protocol: Document 08/27/20 14:34 [facility] (Rec: 08/27/20 15:18 [facility] [id number]) Shoulder Strength Shoulder Manual Muscle Testing Right Flexion 3+ Fair+ Extension 3+ Fair+ Abduction (C5) 3+ Fair+ External Rotation 3+ Fair+ Internal Rotation 4 Good Left Flexion 4 Good Extension 4 Good Abduction (C5) 4 Good External Rotation 4- Good- Internal Rotation 4 Good PT-OP-Q Treatments Start: 06/04/20 15:24 Freq: Status: Active Protocol: Document 09/22/20 12:57 [facility] (Rec: 09/22/20 13:45 [facility] [id number]) Therapeutic Exercises Prone Exercises ER Prone Exercise Name over tball Side right Reps/Minutes 2x8 Comments 90/90 w/cueing tactiling at scap Scaption Prone Exercise Name over tball Side bilateral Reps/Minutes 10 Comments focus on scap positon-stopped d/t R shoulder pain HABD Prone Exercise Name over tball Side bilateral Reps/Minutes 2x10 Standing Exercises ext Standing Exercise Name shoulder row Side bilateral Equipment Used L1 Reps/Minutes x10 Comments min cueing stretch Standing Exercise Name doorway B arm straight stretch & corner 90.90 pec stretch Side bilateral Reps/Minutes 30 sec ea mini squat Standing Exercise Name as far as pt could go w/o falling back Side bilateral Equipment Used over plinth Reps/Minutes 2x15 Manual Therapy Treatment Soft Tissue Mobilization cervical Body Location B UT, suboccipital, LS, scalenes, SCM Mobilization Type Rolling,Sustained Pressure Intensity/Depth Moderate Body Position Hooklying Joint Mobilizations AC Joint gapping FM GH Joint R Direction distraciton, inf, post Grade II Comments FM w/rot & flex, abd tib fib Joint L distal AP w/squat Direction L proximal PA w/squat Comments no pain in sparks during mob but still had pain after in sparks Self-Care/Home Management Treatment Education Other Education edu to follow up w/ortho referral and reminder to discuss sleep issues w/MD at upcoming appt, reminder to cont LE exercises including stationary bike and squats - discussed finding different reg bike as sounds like legs extend too far during biking PT-OP-T Assessment and Plan Start: 06/04/20 15:24 Freq: Status: Active Protocol: Document 09/22/20 12:57 [facility] (Rec: 09/22/20 13:45 [facility] [id number]) Physical Therapy Assessment Goals NDI Impairment 30/50 Short Term Goal (STG) Pt will dec score of NDI to no greater than 20/50 to show imrpoved funcitonal ability. STG Duration 09/24/20 Vice President Quality Goal (LTG) Pt will dec score of NDI to no greater than 8/50 to show imrpoved funcitonal ability. LTG Duration 10/25/20 LEFS Prison Goal (LTG) Pt will improve score to 75/80 to allow full return to typical activities. 08/05-n/t LTG Duration 10/25/20 gait Prison Goal (LTG) Pt will show good gait mechanics with walking and running. 08/05-good mechanics demontrated with walking, have not tried to progress to running LTG Duration 10/25/20 balance Short Term Goal (STG) Pt will be able to do SLS without pain or lat leaning for 15 sec. STG Duration achieved Vice President Quality Goal (LTG) Pt will be able to do SLS without pain or lat leaning for 30 sec. 08/05-24 sec R, L 30 sec 08/27-able to do 30 sec balance B but has more trunk tipping side<>side on R LTG Duration 10/25/20 strength Short Term Goal (STG) Pt will be indep with HEP. 07/17-doing some STG Duration achieved Vice President Quality Goal (LTG) Pt will score 5/5 LE strength & UE strength & 5/5 EFTin all planes and 3/5 LPM to show improved stability in order to inc pt's ability to play with son and do typical activties without pain. 08/05-improving LTG Duration 10/25/20 exercise Short Term Goal (STG) Pt will be able to go for 2 mile walk on flat terrain without increased pain. 07/17-has walked 2-4 miles but typically does have pain at 2 miles 08/27-occ sparks slpints L and R knee w/walking STG Duration 09/24/20 Prison Goal (LTG) Pt will be able to go for run for at least 1 mile without increased pain LTG Duration 10/25/20 Assessment Summary Assessment Pt doing better with rows w/ less cueing requried for scap motion. Pt had difficulty w/ prone exercises and requreid VC and tactile cueing for scap motion especially on R. Shown stretches ot help w/opening up Physical Therapy Plan Frequency and Duration Frequency of Treatment 1-2x/week Duration of Treatment 2 months Plan of Care Start Date 08/27/20 Plan of Care End Date 10/25/20 Next Visit Focus/Plan Next Note Type Treatment Note Next Visit Plan work on cervical stability, work on cervical release
--- NOTE | 2020-09-24 13:40 | PT.OPDS ---
Current Diagnoses Pain in right knee (09/22/20) Cervicalgia (09/22/20) Pain in left leg (09/22/20) Difficulty in walking, not elsewhere classified (09/22/20) Abnormal posture (09/22/20) Weakness (09/22/20) Unspecified injury of right lower leg, initial encounter (09/22/20) Visit Care Team Role Provider Type Ирина Guevara MD Attending Provider Physician Family Provider Primary Care Provider Referring Provider Specialty: Family Practice Address: [address] [place] [address], [facility] Email: [email or web address] Visit Number Visit Number 16 Discharge Summary PT-OP-T Assessment and Plan Start: 06/04/20 15:24 Freq: Status: Active Protocol: Document 09/24/20 13:39 [facility] (Rec: 09/24/20 13:40 [facility] [id number]) Physical Therapy Assessment Assessment Summary Assessment pt was slowly imrpoving w/neck and B knee/LE pain and was encouraged to cont exercises. Pt has no showed 4x during bout of therapy so is DC d/t no show policy at this time. If pt wishes to resume PT, she will require a new referral. Physical Therapy Plan Discharge Physical Therapy Discharge Comments no show policy
== END 2020-09-22 17:00 ==
LOC: PHYS 13:00
PROVIDERS: Family Provider Family Medicine; PCP Family Medicine; Referring Provider Family Medicine; Visit Provider Family Medicine
DX: M25.561 Pain in right knee (principal); S89.91XA Unspecified injury of right lower leg, initial encounter; M79.605 Pain in left leg; R53.1 Weakness; R29.3 Abnormal posture; R26.2 Difficulty in walking, not elsewhere classified; M54.2 Cervicalgia
CPT/HCPCS: 97110; 97140; 97161

== ENCOUNTER → 2020-10-29 11:38 | Outpatient (CLI) | payer OTHER, MEDICAID, SELFPAY ==
[2020-10-29 15:19] LABS: COVID19 -Nasal RAPID Negative (Negative)
== END ==
PROVIDERS: Family Provider Family Medicine; PCP Family Medicine; Referring Provider Student in an Organized Health Care Education/Training Program; Visit Provider Student in an Organized Health Care Education/Training Program
DX: Z20.822 Contact with and (suspected) exposure to COVID-19 (principal)
CPT/HCPCS: 87635

== ENCOUNTER → 2020-11-14 13:36 | Outpatient (CLI) | payer OTHER, MEDICAID, SELFPAY ==
[2020-11-14 13:41] LABS: Bacteria Urine None Seen
[2020-11-14 14:02] LABS: Appearance Urine UA CLEAR; Bilirubin Urine UA NEGATIVE (NEGATIVE); Color Urine UA YELLOW; Glucose Urine UA NEGATIVE (Negative); Ketones Urine UA NEGATIVE (NEGATIVE); Leukocyte Esterase Urine UA NEGATIVE (NEGATIVE); Nitrite Urine UA NEGATIVE (Negative); Occult Blood Urine UA 2+ (Negative); Protein Urine UA NEGATIVE (Negative); Urobilinogen Urine UA 0.2 E.U./dL (0.2)
[2020-11-14 14:04] LABS: pH Urine UA 5.5 (4.5-8.0)
[2020-11-14 14:06] LABS: BUN Creatinine Ratio 21.5 (6-22); Blood Urea Nitrogen 14 mg/dL (7-17); Calcium 9.5 mg/dL (8.4-10.2); Carbon Dioxide 28 mmol/L (22-32); Chloride 104 mmol/L (98-107); Estimated Glomerular Filt Rate > 60.0 mL/min (>60); Glucose 90 mg/dL (70-100); HEMOLYSIS < 15 (0-50); Sodium 138 mmol/L (137-145)
[2020-11-14 14:23] LABS: Culture Indicated Urine Cult Not Indicated; RBC Urine 0-1/HPF (0-5/HPF); Squamous Epithelial Cell Urine 5-10 /HPF (0-5/HPF); WBC Urine 1-5/HPF (0-5/HPF)
== END ==
PROVIDERS: Family Provider Family Medicine; PCP Family Medicine; Referring Provider Family Medicine; Visit Provider Family Medicine
DX: R10.9 Unspecified abdominal pain (principal); R31.9 Hematuria, unspecified
CPT/HCPCS: 36415; 80048; 81001

== ENCOUNTER → 2020-11-26 12:22 | Outpatient (CLI) | payer OTHER, MEDICAID, SELFPAY ==
--- NOTE | 2020-11-26 11:43 | DI.US.S_ITS ---
Date: 11/26/2020 13:01 At the request of: CECY STEEN Procedure: US breast RT limited ULTRASOUND OF RIGHT BREAST: 11/26/2020 CLINICAL: Rt follow up biopsy. Comparison is made to exams dated: 03/20/2020 ultrasound, 08/24/2018 ultrasound biopsy, 08/24/2018 mammogram, 08/24/2018 ultrasound biopsy, and 08/15/2018 ultrasound [facility]. Real-time ultrasound of the right breast was performed. Heaton scale images of the real-time examination were reviewed. The benign dilated duct in the right breast at 4 o'clock in the retroareolar region is no longer seen. IMPRESSION: BENIGN There is no sonographic evidence of malignancy. This exam was interpreted at Station ID: [id number]. Electronically Signed By: Chintan Duran acr/:11/26/2020 16:05:10 letter sent: Clinical Evaluation Ultrasound BI-RADS: 2 Benign
--- NOTE | 2020-11-26 12:23 | DI.US.S_ITS ---
PROCEDURE: US BREAST RT LIMITED COMPARISON: [facility], BREAST RT LIMITED, 03/20/2020, 13:11. INDICATIONS: follow-up FINDINGS: IMPRESSION: Dictated by: Chintan Duran M.D. on 11/26/2020 at 16:02 Approved by: Chintan Duran M.D. on 11/26/2020 at 16:05
--- NOTE | 2020-11-26 12:23 | DI.US.S_ITS ---
PROCEDURE: US RENAL COMPLETE INDICATIONS: hematuria, flank pain TECHNIQUE: Real-time scanning was performed of the kidneys and bladder, with image documentation. COMPARISON: None. FINDINGS: Kidneys: Kidneys are normal in size. Right kidney measures 10.9 cm long; left kidney measures 11.4 cm long. Right renal cortical thickness is 1.4 cm; left renal cortical thickness is 1.4 cm. Renal cortical echotexture is normal. No hydronephrosis. No suspicious solid mass lesions. Within the left kidney, several nonshadowing foci are seen Bladder: Pre-void bladder volume is 81 mL. Post-void residual is seventeen mL. Pre-void images demonstrate no intraluminal masses or stones. On pre-void images, both ureteral jets are noted with color Doppler interrogation. (Of note, ureteral jets may not be detectable in up to 25% of cases due to insufficient differences in specific gravity between ureteral and bladder urine). Miscellaneous: No free pelvic fluid. IMPRESSION: Potential nonobstructing, nonshadowing left-sided kidney stones. Differential diagnosis includes artifact. In this patient with a presenting history of hematuria, please consider a dedicated follow-up hematuria protocol CT (without and with contrast) for further evaluation. There is no hydronephrosis seen on either side. Mild postvoid residual, 17 cc. Dictated by: Taye Martinez M.D. on 11/26/2020 at 15:21 Approved by: Taye Martinez M.D. on 11/26/2020 at 15:23
== END ==
PROVIDERS: Family Provider Family Medicine; PCP Family Medicine; Referring Provider Family Medicine; Visit Provider Family Medicine
DX: R31.9 Hematuria, unspecified (principal); R10.9 Unspecified abdominal pain; N63.0 Unspecified lump in unspecified breast; R92.8 Other abnormal and inconclusive findings on diagnostic imaging of breast
CPT/HCPCS: 76642; 76770

== ENCOUNTER → 2020-12-18 12:34 | Outpatient (CLI) | payer OTHER, MEDICAID, SELFPAY ==
--- NOTE | 2020-12-18 12:35 | DI.CT.S_ITS ---
PROCEDURE: CT KIDNEY URETER BLADDER (KUB) INDICATIONS: follow-up TECHNIQUE: Axial sections were acquired from the lung bases to the pubic symphysis. Coronal and sagittal reformats were performed. For radiation dose reduction, the following was used: automated exposure control, adjustment of mA and/or kV according to patient size. COMPARISON:[facility], , RENAL COMPLETE, 11/26/2020, 11:29. FINDINGS: Image quality: Excellent. Lung bases: Unremarkable. Small hiatal hernia. Heart: No significant findings. URINARY: Right Kidney: No stones or hydronephrosis. Right Ureter: No hydroureter. Left Kidney: No stones or hydronephrosis. Left Ureter: No hydroureter. Bladder: Normal wall thickness. No stones. ABDOMEN: Liver: Unremarkable. Gallbladder: Unremarkable. Biliary ducts: Unremarkable. Pancreas: Unremarkable. Spleen: Unremarkable. Adrenal Glands: Unremarkable. Stomach and Bowel: Stomach, small bowel loops, and colon are unremarkable. Normal appendix. Peritoneum: No abnormal intraperitoneal fluid. No free air. Ventral Wall: Small fat containing umbilical hernia. Abdominal Nodes: No enlarged retroperitoneal or mesenteric lymph nodes. Vessels: Aorta and inferior vena cava are normal in size. PELVIS: Pelvic Organs: Unremarkable. Uterus and ovaries are normal. No free fluid in pelvis. Pelvic Nodes: Unremarkable. Miscellaneous: No inguinal hernias are seen. Bones: Unremarkable. IMPRESSION: 1. No renal stone or hydronephrosis. Dictated by: Casper Kearney M.D. on 12/18/2020 at 15:01 Approved by: Casper Kearney M.D. on 12/18/2020 at 17:36
[2020-12-18 12:39] LABS: Bacteria Urine None Seen; WBC Urine None Seen (0-5/HPF)
[2020-12-18 13:31] LABS: Appearance Urine UA CLEAR; Bilirubin Urine UA NEGATIVE (NEGATIVE); Color Urine UA YELLOW; Glucose Urine UA NEGATIVE (Negative); Ketones Urine UA NEGATIVE (NEGATIVE); Leukocyte Esterase Urine UA NEGATIVE (NEGATIVE); Nitrite Urine UA NEGATIVE (Negative); Occult Blood Urine UA TRACE-LYSED (Negative); Protein Urine UA NEGATIVE (Negative); Urobilinogen Urine UA 0.2 E.U./dL (0.2)
[2020-12-18 13:54] LABS: Culture Indicated Urine Cult Not Indicated; RBC Urine 1-5/HPF (0-5/HPF); Squamous Epithelial Cell Urine 1-5 /HPF (0-5/HPF)
== END ==
PROVIDERS: Family Provider Family Medicine; PCP Family Medicine; Referring Provider Family Medicine; Visit Provider Family Medicine
DX: R93.429 Abnormal radiologic findings on diagnostic imaging of unspecified kidney (principal); M54.5 Low back pain; N32.89 Other specified disorders of bladder; R30.0 Dysuria
CPT/HCPCS: 74176; 81001

== ENCOUNTER → 2021-01-24 10:01 | Outpatient (CLI) | payer OTHER, MEDICAID, SELFPAY ==
--- NOTE | 2021-01-24 10:02 | DI.MRI.S_ITS ---
PROCEDURE: MR KNEE RT WO CON INDICATIONS: Pain in right knee TECHNIQUE: Noncontrast sagittal PD fast spin echo and T2 fast spin echo with fat saturation, sagittal 3-D FLASH with fat saturation; coronal T1 spin echo and PD fast spin echo with fat saturation, and axial PD fast spin echo with fat saturation through the knee. COMPARISON: None. FINDINGS: Image quality: Excellent. Menisci: The medial and lateral menisci demonstrate normal morphology and internal signal. The meniscal root ligaments appear intact. Cruciate ligaments: Anterior and posterior cruciate ligaments are intact. Medial structures: The medial collateral ligament appears intact. The posterior oblique ligament, semimembranosus tendon insertions, oblique popliteal ligament, and meniscocapsular junction appear intact. Visualized portions of the pes anserinus tendons appear normal. No abnormal bursal fluid. Lateral structures: The lateral collateral ligament, long and short heads of the biceps femoris tendon appear intact. The popliteus tendon appears normal; the popliteofibular ligament appears intact. The posterosuperior and anteroinferior popliteomeniscal fascicles appear intact. The arcuate and fabellofibular ligaments appear intact, on either side of the lateral inferior geniculate artery. Iliotibial band appears normal. Anterior structures: Mildly thickened distal quadriceps tendon at its superior patellar insertion is seen suggestive of tendinosis. Patellar tendon is intact. Patellar alignment is normal. No femoral trochlear dysplasia or ventral trochlear prominence. No edema in the infrapatellar fat pad. Bones and cartilage: No bone marrow contusions or fractures. The cartilage of the medial and lateral femorotibial compartments, as well as the patellofemoral compartment, appears normal in thickness. Joint space: There is physiologic knee joint fluid. No Muñoz's cyst. Normal appearing synovial plicae are incidentally noted. IMPRESSION: 1. Suggestion of distal quadriceps tendinosis/low-grade intrasubstance partial-thickness tear at its superior patellar insertion. Patellar tendon is intact. 2. No evidence of focal meniscal tear. 3. Cruciate ligaments are intact. 4. No marrow edema. No fracture or dislocation. Articulating cartilages are intact. Dictated by: Denny Liu M.D. on 01/26/2021 at 8:35 Approved by: Denny Liu M.D. on 01/26/2021 at 8:43
== END ==
PROVIDERS: Family Provider Family Medicine; PCP Family Medicine; Referring Provider Orthopaedic Surgery; Visit Provider Orthopaedic Surgery
DX: M25.561 Pain in right knee (principal)
CPT/HCPCS: 73721

== ENCOUNTER → 2021-04-14 10:41 | Outpatient (CLI) | payer OTHER, MEDICAID, SELFPAY ==
[2021-04-14 12:25] LABS: Alanine Aminotransferase 13 IU/L (<35); Albumin 4.5 g/dL (3.5-5.0); Albumin Globulin Ratio 1.6 (1.0-2.8); Alkaline Phosphatase 62 U/L (38-126); Aspartate Aminotransferase 20 IU/L (14-36); BUN Creatinine Ratio 23.2 (6-22); Bilirubin Total 0.5 mg/dL (0.2-1.3); Blood Urea Nitrogen 13 mg/dL (7-17); Calcium 9.5 mg/dL (8.4-10.2); Carbon Dioxide 28 mmol/L (22-32); Chloride 102 mmol/L (98-107); Estimated Glomerular Filt Rate > 60.0 mL/min (>60); Globulin 2.8 g/dL (1.7-4.1); Glucose 96 mg/dL (70-100); HEMOLYSIS < 15 (0-50); Potassium 4.1 mmol/L (3.4-5.1); Sodium 139 mmol/L (137-145); Total Protein 7.3 g/dL (6.3-8.2)
== END ==
PROVIDERS: Family Provider Family Medicine; PCP Family Medicine; Referring Provider Family Medicine; Visit Provider Family Medicine
DX: L29.9 Pruritus, unspecified (principal)
CPT/HCPCS: 36415; 80053

== ENCOUNTER 2021-04-20 02:24 | Emergency (ER) | payer OTHER, MEDICAID, SELFPAY ==
--- NOTE | 2021-04-20 02:30 | ED_ITS ---
HPI - Headache General Chief Complaint: Headache Stated Complaint: migraine x3 days Time Seen by Provider: 04/20/21 02:24 History of Present Illness HPI Narrative: 30-year-old female occasional user alcohol, nonsmoker with history of migraines presents with about 3 days of a gradually worsening generalized headache. She states that it is achy and squeezing and seems to be made worse by bright lights and loud noise. She states that improves with quiet dark rooms. She denies blurred vision or trouble with speech. She has no trauma or injury. She denies the use of blood thinners. She has had no fever or chills. Her last visit to the emergency department for migraine was a few months ago, she is unclear and cannot remember exactly what had helped her previously Related Data Home Medications Medication Instructions Recorded Confirmed [id number] 250 2 tab PO Q6H PRN 05/09/18 10/29/20 mg-250 mg-65 mg tablet (Excedrin Migraine) Previous Rx's Medication Instructions Recorded norethindrone (contraceptive) 0.35 0.35 mg PO DAILY #84 tab 03/13/20 mg tablet (Ortho Micronor) metronidazole 0.75 % vaginal gel See Rx Instructions VAGINAL BID 10 06/13/20 Days #140 g lidocaine 5 % topical patch 1 patch TOPICAL DAILY #30 ea 12/09/20 Allergies Allergy/AdvReac Type Severity Reaction Status Date / Time No Known Drug Allergies Allergy Verified 10/29/20 11:36 Review of Systems Review of Systems Narrative: GENERAL: Denies chills, fatigue, malaise, fever, sweats. HEENT: Denies sinus pain, ear pain, sore throat, difficulty swallowing, dizziness. RESPIRATORY: Denies dyspnea, cough, wheezing, hemoptysis, sputum. CARDIOVASCULAR: Denies chest pain, palpitations, orthopnea, edema, GASTROINTESTINAL: Denies nausea, vomiting, abdominal pain, diarrhea, constipation, melena. : Denies dysuria, frequency, incontinence, hematuria, urinary retention. MUSCULOSKELETAL: denies weakness, joint pain, or bony pain SKIN: Denies rash, skin lesions, or other NEUROLOGIC: See HPI PSYCHIATRIC: No concerning psychosocial issues. 12 point review of systems is negative except for those stated above Patient History Medical History Anemia Bacterial vaginosis Gastric ulcer Genital warts IBS (irritable bowel syndrome) Migraine with aura and with status migrainosus Vaginal delivery (04/21/15) Family History Grandfather Stomach cancer Grandmother Heart disease Father No problems noted. Grandmother No problems noted. Mother No problems noted. Grandfather Kidney disease Sister No problems noted. Sister No problems noted. Sister No problems noted. Social History Smoking Status: Never smoker alcohol intake: never substance use type: does not use Smoking Status: Never smoker alcohol intake frequency: 0-2 drinks per day Substance Use Type: does not use Exam Narrative Exam Narrative: GENERAL: [30 year old patient appears stated age. Well-developed patient, in mild distress. Rubbing her forehead, is requesting the lights to be turned off HEAD: Atraumatic. Normocephalic. EYES: Pupils equal round and reactive. Extraocular motions intact. No scleral icterus. No injection or drainage. ENT: Nose without bleeding, purulent drainage. Throat without erythema, tonsillar hypertrophy or exudate. Airway patent. NECK: Trachea midline. Non tender CARDIOVASCULAR: Regular rate and rhythm without murmurs, gallops, or rubs. RESPIRATORY: Clear to auscultation. Breath sounds equal bilaterally. No wheezes, rales, or rhonchi. GASTROINTESTINAL: Abdomen soft, non-tender, nondistended. EXTREMITIES: No edema or joint tenderness. BACK: Nontender without deformity or crepitance. No flank tenderness. NEURO: AOx3. SKIN: No rash or erythema of visible areas NIH Stroke Scale 1a. LOC: Patient is alert and keenly responsive (0) 1b. LOC Questions: Patient answers both LOC questions accurately (0) 1c. LOC Commands: Patient performs both tasks correctly (0) 2. Best Gaze: Normal (0) 3. Visual: No visual loss (0) 4. Facial palsy: Normal symmetrical movements (0) 5. Motor arm: No drift (0) 6. Motor leg: No drift (0) 7. Limb ataxia: Absent (0) 8. Sensory: Normal (0) 9. Best language: No aphasia; normal (0) 10. Dysarthria: Normal (0) 11. Extinction and inattention: No abnormality (0) NIHSS: 0 Initial Vital Signs Initial Vital Signs: Vital Signs Temperature 97.3 F L 04/20/21 02:41 Pulse Rate 101 H 04/20/21 02:41 Respiratory Rate 18 04/20/21 02:41 Blood Pressure 148/101 H 04/20/21 02:41 Pulse Oximetry 99 04/20/21 02:41 Course Orders Ordered: Discontinued Medications Dexamethasone (Dexamethasone 10 Mg/Ml Vial) 10 mg IV NOW ONE Stop: 04/20/21 02:31 Last Admin: 04/20/21 02:42 Dose: 10 mg Documented by: ELKIN Diphenhydramine HCl (Diphenhydramine 50 Mg/Ml Vial) 25 mg IV NOW ONE Stop: 04/20/21 02:31 Last Admin: 04/20/21 02:42 Dose: 25 mg Documented by: ELKIN Sodium Chloride (Normal Saline 0.9%) 1,000 mls @ 1,000 mls/hr IV BOLUS ONE Stop: 04/20/21 03:29 Last Admin: 04/20/21 02:42 Dose: 1,000 mls/hr Documented by: ELKIN Ketorolac Tromethamine (Ketorolac 30 Mg/Ml Vial) 15 mg IV NOW ONE Stop: 04/20/21 02:31 Last Admin: 04/20/21 02:42 Dose: 15 mg Documented by: ELKIN Metoclopramide HCl (Metoclopramide 10 Mg/2 Ml Inj) 10 mg IV NOW ONE Stop: 04/20/21 02:31 Last Admin: 04/20/21 02:43 Dose: 10 mg Documented by: ELKIN Reevaluation(s) Reevaluation #1: Patient has significant improvement in symptoms after above- stated therapies. Initially her pain was 10/10 and at time of discharge she was a 2 or 3. Return precautions given and questions answered to her apparent satisfaction Vital Signs Vital signs: Vital Signs - 8 hr 04/20/21 02:41 04/20/21 04:01 Temperature 97.3 F L Pulse Rate 101 H 70 Respiratory Rate 18 18 Blood Pressure 148/101 H 110/66 Pulse Oximetry 99 98 MDM - Headache MDM Narrative Medical decision making narrative: Headache considerations include, but not limited to: Subarachnoid hemorrhage, but unlikely as patient denies sudden onset of pain, not worst of life, or neck pain Meningitis considered, but thought unlikely given lack of Brudzinski's, Kernig's sign, altered mental status or fever Giant cell arteritis considered, but thought unlikely given lack of unilateral findings, pain in protestant, vision change HTN Emergency considered, but thought unlikely given normal vitals Other serious diagnoses considered unlikely given lack of red flag findings such as sudden onset, increasing frequency, immunocompromise, systemic signs (fever, chills, stiff neck, or rash), focal neurologic findings, trauma, blood thinners, etc. Discharge Plan Departure Patient Disposition: Home Clinical Impression: Migraine Qualifiers: Migraine type: unspecified Status migrainosus presence: without status migrainosus Intractability: not intractable Qualified Code(s): G43.909 - Migraine, unspecified, not intractable, without status migrainosus Instructions: DI for Migraine Activity Restrictions/Additional Instructions: *You have been diagnosed with [ Headache ] *What to do: *Take medications as directed *Follow up with your primary care provider in 2-3 days, call for an appointment. Let them know you were seen in the Emergency Department and that we ask that you be seen in follow up *Return to ER if you should have any new, worsening or concerning symptoms, such as [ fever > 101F, neck pain or stiffness, vomiting, confusion, seizure, focal weakness, vision change, speech deficit or other concerning symptoms ] Prescriptions: No Action metronidazole 0.75 % gel See Rx Instructions vaginal BID 10 Days Qty: 140 RF: 4 lidocaine 5 % adhesive patch,medicated 1 patch topical DAILY Qty: 30 RF: 2 norethindrone (contraceptive) [Ortho Micronor] 0.35 mg tablet 0.35 mg PO DAILY Qty: 84 RF: 3 [id number] [Excedrin Migraine] 250-250-65 mg tablet 2 tab PO Q6H PRNRF: 0 Referrals: Ирина Guevara MD [Primary Care Provider] -
[2021-04-20 02:41] VITALS: BP 148/101; PULSE 101; RESP 18; TEMP 36.3; O2SAT 99; BMI 56.6
[2021-04-20] MEDS: diphenhydrAMINE 50 MG/ML VIAL 25 MG IV (02:42)
[2021-04-20] MEDS: KETOROLAC 30 MG/ML VIAL 15 MG IV (02:42)
[2021-04-20] MEDS: DEXAMETHASONE 10 MG/ML VIAL IV (02:42)
[2021-04-20] MEDS: SODIUM CHLORIDE 0.9% 1,000 ML 1000 ML IV (02:42)
[2021-04-20] MEDS: METOCLOPRAMIDE 10 MG/2 ML INJ IV (02:43)
[2021-04-20 04:01] VITALS: BP 110/66; PULSE 70; RESP 18; O2SAT 98
== END 2021-04-20 04:02 | disposition home or self-care (01) ==
PROVIDERS: Emergency Provider Emergency Medicine; Family Provider Family Medicine; PCP Family Medicine
DX: G43.909 Migraine, unspecified, not intractable, without status migrainosus (principal)
CPT/HCPCS: 36415; 96361; 96374; 96375; 99284; J1100; J1200; J1885; J2765

== ENCOUNTER → 2021-04-22 08:40 | Outpatient (CLI) | payer OTHER, MEDICAID, SELFPAY ==
[2021-04-23 14:36] LABS: Mumps Virus IgG Antibody 25.2 AU/mL (Immune >10.9); Rubeola Measles IgG 28.1 AU/mL (Immune >16.4); Varicella IgG Antibody 582 index (Immune >165)
[2021-04-24 01:36] LABS: Hepatitis B Surf Ab Qualitativ Reactive (.)
[2021-04-27 18:12] LABS: QuantiFERON Mitogen Value >10.00 IU/mL (.); QuantiFERON Nil Value 0.05 IU/mL (.); QuantiFERON TB Gold Plus Negative (Negative); QuantiFERON TB1 Ag Value 0.04 IU/mL (.); QuantiFERON TB2 Ag Value 0.04 IU/mL (.)
== END ==
PROVIDERS: Family Provider Family Medicine; PCP Family Medicine; Referring Provider Family Medicine; Visit Provider Family Medicine
DX: Z01.84 Encounter for antibody response examination (principal); Z11.9 Encounter for screening for infectious and parasitic diseases, unspecified
CPT/HCPCS: 36415; 86480; 86706; 86735; 86762; 86765; 86787

== ENCOUNTER → 2021-06-07 11:30 | Outpatient (CLI) | payer OTHER, MEDICAID, SELFPAY ==
[2021-06-07 12:49] LABS: COVID19 -Nasal RAPID Negative (Negative)
== END ==
PROVIDERS: Family Provider Family Medicine; PCP Family Medicine; Referring Provider Physician Assistant; Visit Provider Physician Assistant
DX: Z20.822 Contact with and (suspected) exposure to COVID-19 (principal); J02.9 Acute pharyngitis, unspecified
CPT/HCPCS: 87070; 87077; 87147; 87635; 87880

== ENCOUNTER → 2021-07-08 12:02 | Outpatient (CLI) | payer OTHER, MEDICAID, SELFPAY ==
[2021-07-08 14:03] LABS: COVID19 -Nasal RAPID Negative (Negative)
== END ==
PROVIDERS: Family Provider Family Medicine; PCP Family Medicine; Referring Provider Nurse Practitioner Family; Visit Provider Nurse Practitioner Family
DX: R05.9 Cough, unspecified (principal); R51.9 Headache, unspecified; R09.81 Nasal congestion
CPT/HCPCS: 87635

== ENCOUNTER → 2021-07-12 11:37 | Outpatient (CLI) | payer OTHER, MEDICAID, SELFPAY ==
[2021-07-12 12:23] LABS: COVID19 -Nasal RAPID POSITIVE (Negative)
== END ==
PROVIDERS: Family Provider Family Medicine; PCP Family Medicine; Visit Provider Physician Assistant
DX: U07.1 COVID-19 (principal); Z20.822 Contact with and (suspected) exposure to COVID-19; R09.81 Nasal congestion
CPT/HCPCS: 87635

== ENCOUNTER → 2021-08-17 14:39 | Outpatient (CLI) | payer OTHER, MEDICAID, SELFPAY ==
[2021-08-17 15:14] LABS: Add Manual Diff / Slide Review NO; Basophils Absolute Auto 0 /uL (0-100); Basophils Percent Auto 0.5 % (0-2); Eosinophils Absolute Auto 100 /uL (0-450); Eosinophils Percent Auto 0.8 % (2-4); Hematocrit 35.3 % (36-46); Lymphocytes Absolute Auto 3200 /uL (1100-4500); Lymphocytes Percent Auto 41.1 % (25-40); Mean Corpuscular HGB Conc 34.1 % (30-36); Mean Corpuscular Volume 90.8 fL (80-100); Monocytes Absolute Auto 500 /uL (0-900); Monocytes Percent Auto 6.4 % (3-14); Neutrophils Absolute Auto 4000 /uL (1500-7000); Neutrophils Percent Auto 51.2 % (50-75); Platelet Count 234 X10^3/uL (150-400); Red Blood Cell Count 3.89 X10^6/uL (4.0-5.2); White Blood Cell Count 7.8 X10^3/uL (4.5-11.0)
== END ==
PROVIDERS: Family Provider Family Medicine; PCP Family Medicine; Referring Provider Family Medicine; Visit Provider Family Medicine
DX: D64.9 Anemia, unspecified (principal)
CPT/HCPCS: 36415; 85025

== ENCOUNTER → 2021-08-25 15:40 | Outpatient (CLI) | payer OTHER, MEDICAID, SELFPAY ==
[2021-09-01 06:05] LABS: Candida species Positive (Negative); Gardnerella vaginalis Negative (Negative); Trichomoas vaginalis Negative (Negative)
== END ==
PROVIDERS: Obstetrics & Gynecology; Family Provider Family Medicine; PCP Family Medicine; Visit Provider Family Medicine
DX: N89.8 Other specified noninflammatory disorders of vagina (principal); R82.998 Other abnormal findings in urine
CPT/HCPCS: 81002; 87480; 87510; 87660

== ENCOUNTER → 2021-11-18 18:06 | Outpatient (CLI) | payer OTHER, MEDICAID, SELFPAY ==
[2021-11-18 19:02] LABS: Influenza A - CEPHEID Flu A POSITIVE (NEGATIVE); Influenza B - CEPHEID Flu B NEGATIVE (NEGATIVE)
[2021-11-18 19:06] LABS: COVID-19 CEPHEID PCR (VTM/NP) Negative (Negative)
== END ==
PROVIDERS: Family Provider Family Medicine; PCP Family Medicine; Visit Provider Nurse Practitioner Family
DX: Z20.822 Contact with and (suspected) exposure to COVID-19 (principal); R05.9 Cough, unspecified
CPT/HCPCS: 0240U

== ENCOUNTER → 2022-01-12 09:23 | Outpatient (CLI) | payer OTHER, MEDICAID, SELFPAY ==
--- NOTE | 2022-01-12 09:24 | DI.RAD.S_ITS ---
PROCEDURE: HL HYSTEROSAPINGOGRAPHY INDICATIONS: Infertility COMPARISON: None. FINDINGS: Patient had a documented negative test prior to the study. Following speculum insertion, a balloon-tip catheter was inserted into the cervical canal, and secured by inflating the balloon. Contrast was then injected into the endometrial canal. Uterus: The uterine cavity appears normal in size and morphology, without synechiae or masses. Fallopian tubes: Both fallopian tubes fill with contrast, and appear normal in caliber and morphology. There is ready dispersion of contrast into the peritoneal cavity. IMPRESSION: Normal examination with patency of the bilateral fallopian tubes. Dictated by: Anya Parr MD, PhD on 01/12/2022 at 13:20 Approved by: Anya Parr MD, PhD on 01/12/2022 at 13:21
--- NOTE | 2022-01-12 10:19 | PM.PROC.1 ---
Procedures Date/Time Date of procedure: 01/12/22 Time of procedure: 10:20 General Procedure description: Hysterosalpingogram After informed consent was obtained, the patient was placed on an overturned bedpan on the fluoroscopy table. A bivalve speculum was placed into the vagina. The cervix was cleaned x3 with Betadine. The hysterosalpingogram catheter passed easily into the endometrial cavity and the balloon was inflated with 3 cc of air. The bivalve speculum was removed from the vagina. Under fluoroscopic examination 13 cc of Optiray 300 were injected into the uterus under direct fluoroscopic visualization. The uterus was normal in contour. There was immediate spill from both tubes. The remainder of the contrast was removed from the uterus. The HSG catheter was removed from the uterus. The single-tooth tenaculum was removed from the anterior lip of the cervix. The patient was taken off of the overturned bedpan. She tolerated the procedure well. Complications: none
== END ==
PROVIDERS: Family Provider Family Medicine; PCP Family Medicine; Referring Provider Obstetrics & Gynecology; Visit Provider Obstetrics & Gynecology
DX: N97.9 Female infertility, unspecified (principal)
CPT/HCPCS: 58340; 74740

== ENCOUNTER → 2022-04-19 11:11 | Outpatient (CLI) | payer SELFPAY ==
[2022-04-19 12:47] LABS: Initial Volume 4 mL; Semen 30 min. Liquification? Yes
[2022-04-19 12:49] LABS: Final Volume 0.5 mL
== END ==
PROVIDERS: Family Provider Family Medicine; PCP Family Medicine; Referring Provider Obstetrics & Gynecology; Visit Provider Obstetrics & Gynecology
DX: N97.0 Female infertility associated with anovulation (principal)
CPT/HCPCS: 58323

== ENCOUNTER → 2022-05-18 15:48 | Outpatient (CLI) | payer OTHER, SELFPAY ==
[2022-05-18 17:34] LABS: Appearance Urine UA CLEAR; Bilirubin Urine UA NEGATIVE (NEGATIVE); Color Urine UA YELLOW; Glucose Urine UA NEGATIVE (Negative); Ketones Urine UA NEGATIVE (NEGATIVE); Leukocyte Esterase Urine UA NEGATIVE (NEGATIVE); Nitrite Urine UA NEGATIVE (Negative); Occult Blood Urine UA NEGATIVE (Negative); Protein Urine UA NEGATIVE (Negative); Specific Gravity Urine UA 1.015 (1.000-1.035); Urobilinogen Urine UA 0.2 E.U./dL (0.2)
[2022-05-18 18:26] LABS: pH Urine UA 7.5 (4.5-8.0)
[2022-05-18 18:53] LABS: Bacteria Urine Moderate (10-30); Culture Indicated Urine Cult Not Indicated; RBC Urine None Seen (0-5/HPF); Squamous Epithelial Cell Urine 1-5 /HPF (0-5/HPF); WBC Urine 0-1/HPF (0-5/HPF)
== END ==
PROVIDERS: Family Provider Family Medicine; PCP Family Medicine; Referring Provider Obstetrics & Gynecology; Visit Provider Obstetrics & Gynecology
DX: R10.2 Pelvic and perineal pain (principal)
CPT/HCPCS: 81001

== ENCOUNTER → 2022-06-12 13:11 | Outpatient (CLI) | payer OTHER, MEDICAID, SELFPAY ==
[2022-06-12 14:40] LABS: Final Volume 0.5 mL; Semen 30 min. Liquification? Yes
== END ==
PROVIDERS: Family Provider Family Medicine; PCP Family Medicine; Referring Provider Obstetrics & Gynecology; Visit Provider Obstetrics & Gynecology
DX: N97.9 Female infertility, unspecified (principal)
CPT/HCPCS: 58323

== ENCOUNTER → 2022-06-22 16:28 | Outpatient (CLI) | payer OTHER, MEDICAID, SELFPAY ==
[2022-06-22 17:43] LABS: HCG Quantitative /Beta subunit < 2.4 mIU/mL
== END ==
PROVIDERS: Family Provider Family Medicine; PCP Family Medicine; Referring Provider Obstetrics & Gynecology; Visit Provider Obstetrics & Gynecology
DX: N91.2 Amenorrhea, unspecified (principal); R14.0 Abdominal distension (gaseous)
CPT/HCPCS: 36415; 84702

== ENCOUNTER → 2022-07-21 10:25 | Outpatient (CLI) | payer OTHER, MEDICAID, SELFPAY ==
[2022-07-21 12:34] LABS: HCG Quantitative /Beta subunit 40.7 mIU/mL
== END ==
PROVIDERS: Family Provider Family Medicine; PCP Family Medicine; Referring Provider Obstetrics & Gynecology; Visit Provider Obstetrics & Gynecology
DX: N91.2 Amenorrhea, unspecified (principal)
CPT/HCPCS: 36415; 84702

== ENCOUNTER → 2022-07-23 15:38 | Outpatient (CLI) | payer OTHER, MEDICAID, SELFPAY ==
[2022-07-23 17:19] LABS: HCG Quantitative /Beta subunit 182.1 mIU/mL
[2022-07-23 18:48] LABS: Appearance Urine UA CLEAR; Bilirubin Urine UA NEGATIVE (NEGATIVE); Color Urine UA YELLOW; Glucose Urine UA NEGATIVE (Negative); Ketones Urine UA NEGATIVE (NEGATIVE); Leukocyte Esterase Urine UA NEGATIVE (NEGATIVE); Nitrite Urine UA NEGATIVE (Negative); Occult Blood Urine UA NEGATIVE (Negative); Protein Urine UA NEGATIVE (Negative); Urobilinogen Urine UA 0.2 E.U./dL (0.2)
[2022-07-23 20:01] LABS: Bacteria Urine None Seen; Culture Indicated Urine Cult Not Indicated; RBC Urine None Seen (0-5/HPF); Squamous Epithelial Cell Urine 1-5 /HPF (0-5/HPF); WBC Urine None Seen (0-5/HPF)
== END ==
PROVIDERS: Family Provider Family Medicine; PCP Family Medicine; Referring Provider Obstetrics & Gynecology; Visit Provider Obstetrics & Gynecology
DX: N91.2 Amenorrhea, unspecified (principal); R30.0 Dysuria
CPT/HCPCS: 36415; 81001; 84702

== ENCOUNTER → 2022-08-30 13:27 | Outpatient (CLI) | payer OTHER, MEDICAID, SELFPAY ==
[2022-08-30 13:55] LABS: Add Manual Diff / Slide Review NO; Basophils Absolute Auto 0 /uL (0-100); Basophils Percent Auto 0.3 % (0-2); Eosinophils Absolute Auto 100 /uL (0-450); Eosinophils Percent Auto 0.6 % (2-4); Hematocrit 33.3 % (36-46); Hemoglobin 11.3 g/dL (12.0-16.0); Lymphocytes Absolute Auto 2200 /uL (1100-4500); Lymphocytes Percent Auto 18.3 % (25-40); Mean Corpuscular Hemoglobin 31.1 PG (26-34); Mean Corpuscular Volume 91.6 fL (80-100); Monocytes Absolute Auto 800 /uL (0-900); Monocytes Percent Auto 7.1 % (3-14); Neutrophils Absolute Auto 8800 /uL (1500-7000); Neutrophils Percent Auto 73.7 % (50-75); Platelet Count 236 X10^3/uL (150-400); Red Blood Cell Count 3.63 X10^6/uL (4.0-5.2); Red Cell Distribution Width 13.6 % (11.6-14.8); White Blood Cell Count 11.9 X10^3/uL (4.5-11.0)
[2022-08-30 14:04] LABS: Appearance Urine UA CLEAR; Bilirubin Urine UA NEGATIVE (NEGATIVE); Color Urine UA YELLOW; Glucose Urine UA NEGATIVE (Negative); Ketones Urine UA NEGATIVE (NEGATIVE); Leukocyte Esterase Urine UA NEGATIVE (NEGATIVE); Nitrite Urine UA NEGATIVE (Negative); Occult Blood Urine UA TRACE-INTACT (Negative); Protein Urine UA NEGATIVE (Negative); Urobilinogen Urine UA 0.2 E.U./dL (0.2)
[2022-08-30 15:35] LABS: Hepatitis B Surface Antigen NEGATIVE s/c (NEGATIVE); Rubella Antibody IgG 50.2 IU/mL (>15)
[2022-08-30 15:53] LABS: HIV 1 & 2 Ab/Ag 4th Gen Combo NEGATIVE (NEGATIVE); Hep C Virus Ab w/Reflex Quant NEGATIVE s/c (NEGATIVE)
[2022-08-31 05:22] LABS: RPR Screen Non Reactive (Non Reactive)
[2022-08-31 06:36] LABS: Varicella IgG Antibody 639 index (Immune >165)
== END ==
PROVIDERS: Family Provider Family Medicine; PCP Family Medicine; Referring Provider Obstetrics & Gynecology; Visit Provider Obstetrics & Gynecology
DX: Z34.81 Encounter for supervision of other normal pregnancy, first trimester (principal)
CPT/HCPCS: 36415; 80055; 81003; 86787; 86803; 86850; 86900; 86901; 87086; 87389

== ENCOUNTER → 2022-09-09 12:10 | Outpatient (CLI) | payer OTHER, MEDICAID, SELFPAY ==
[2022-09-09 13:19] LABS: Appearance Urine UA CLEAR; Bilirubin Urine UA NEGATIVE (NEGATIVE); Color Urine UA YELLOW; Glucose Urine UA NEGATIVE (Negative); Ketones Urine UA NEGATIVE (NEGATIVE); Leukocyte Esterase Urine UA NEGATIVE (NEGATIVE); Nitrite Urine UA NEGATIVE (Negative); Occult Blood Urine UA NEGATIVE (Negative); Protein Urine UA NEGATIVE (Negative); Urobilinogen Urine UA 0.2 E.U./dL (0.2)
[2022-09-09 13:21] LABS: pH Urine UA 6.5 (4.5-8.0)
[2022-09-09 13:24] LABS: Bacteria Urine None Seen; Culture Indicated Urine Cult Not Indicated; RBC Urine None Seen (0-5/HPF); Urine Comments Microscopic Normal; WBC Urine None Seen (0-5/HPF)
== END ==
PROVIDERS: Family Provider Family Medicine; PCP Family Medicine; Referring Provider Obstetrics & Gynecology; Visit Provider Obstetrics & Gynecology
DX: R30.0 Dysuria (principal)
CPT/HCPCS: 81001

== ENCOUNTER → 2022-10-01 09:39 | Outpatient (CLI) | payer OTHER, MEDICAID, SELFPAY ==
[2022-10-01 11:58] LABS: Alanine Aminotransferase 22 IU/L (<35); Albumin 3.7 g/dL (3.5-5.0); Albumin Globulin Ratio 1.1 (1.0-2.8); Alkaline Phosphatase 71 U/L (38-126); Aspartate Aminotransferase 22 IU/L (14-36); BUN Creatinine Ratio 16.2 (6-22); Bilirubin Total 0.3 mg/dL (0.2-1.3); Blood Urea Nitrogen 6 mg/dL (7-17); Calcium 9.1 mg/dL (8.4-10.2); Carbon Dioxide 25 mmol/L (22-32); Chloride 101 mmol/L (98-107); Estimated Glomerular Filt Rate > 60 mL/min (>60); Globulin 3.3 g/dL (1.7-4.1); Glucose 85 mg/dL (70-100); HEMOLYSIS < 15 (0-50); Potassium 4.1 mmol/L (3.4-5.1); Sodium 134 mmol/L (137-145)
[2022-10-03 13:28] LABS: Bile Acids 6.9 umol/L (0.0-10.0)
== END ==
PROVIDERS: Family Provider Family Medicine; PCP Family Medicine; Referring Provider Family Medicine; Visit Provider Family Medicine
DX: L29.9 Pruritus, unspecified (principal); O99.719 Diseases of the skin and subcutaneous tissue complicating pregnancy, unspecified trimester; Z3A.00 Weeks of gestation of pregnancy not specified
CPT/HCPCS: 36415; 80053; 82239

== ENCOUNTER → 2022-10-19 15:31 | Outpatient (CLI) | payer OTHER, MEDICAID, SELFPAY ==
[2022-10-21 21:12] LABS: AFP Value 82.8 ng/mL (.); Gest Age on Col Date 16.6 weeks (.); Insulin Dep Diabetes No (.); OSBR Risk 1IN 994 (.); Results Report (.); Test Results *Screen Negative* (.)
== END ==
PROVIDERS: Family Provider Family Medicine; PCP Family Medicine; Referring Provider Obstetrics & Gynecology; Visit Provider Obstetrics & Gynecology
DX: O30.049 Twin pregnancy, dichorionic/diamniotic, unspecified trimester (principal); Z3A.16 16 weeks gestation of pregnancy
CPT/HCPCS: 36415; 82105

== ENCOUNTER → 2022-11-16 14:03 | Outpatient (CLI) | payer OTHER, MEDICAID, SELFPAY ==
--- NOTE | 2022-11-16 14:04 | DI.US.S_ITS ---
PROCEDURE: US OB >= 14 WEEKS FETUS INDICATIONS: TWIN ANATOMY OUTSIDE/PRIOR DATING DATA: Last menstrual period (LMP): 06/26/2022. LMP-based estimated date of delivery (GODWIN): 04/02/2023. First dating scan (date and location): 08/24/2022. Estimated date of delivery (GODWIN) from first dating scan: 04/01/2023. The calculations are made using the clinical GODWIN of 04/02/2023. TECHNIQUE: Real-time scanning was performed of the fetuses, with image documentation and biometric measurements. Endovaginal scanning: Not performed COMPARISON: [facility], , OB >= 14 WEEKS FETUS, 10/19/2022, 15:22. FINDINGS: General: An intrauterine dichorionic-diamniotic twin is present, as evidenced by separate placentas, differing sexes, or an intervening membrane of greater than 2 mm. Amniotic fluid index (composite): 15.3 and 12.1 cm. Maternal cervical canal: 4.4 cm long. Normal lower limit is 2.5 cm. FETUS A: Fetus is located on the maternal left side, and is in breech presentation. Largest amniotic fluid pocket: 15.3 cm; normal range is 2-8 cm. Placental position is posterior , without previa. heart rate: 139 beats per minute. biometrics: Biparietal diameter: 5.0 cm, 21 weeks 1 day Head circumference: 19.8 cm, 20 weeks 2 days Abdominal circumference: 14.3 cm, 19 weeks 5 days Femur length: 3.3 cm, 20 weeks 1 day Clinically estimated gestational age: 20 weeks 3 days Composite gestational age from present scan: 20 weeks 2 days Estimated weight and percentile: 325 g, 23rd percentile Anatomic survey: Neuro: Ventricles are normal at less than 10 mm. Cisterna magna is normal at 3-11 mm. Cerebellum is normal in size and morphology. Nuchal skin fold: Normal at less than 6 mm between 14 and 21 weeks gestational age. Face: Facial profile not visualized. Spine: No evidence for spina bifida. Heart: 4 chambered heart is present, with normal ventricular outflow tracts. Diaphragm: Diaphragm is intact. Stomach: Left-sided stomach is present. Kidneys: No hydronephrosis. Normal ranges are less than 5 mm in 2nd trimester, less than 7 mm in 3rd trimester. Cord: 3 vessel cord has orthotopic insertion. Bladder: Normal in size. Extremities: All 4 extremities are visualized. FETUS B: Fetus is located on the maternal superior right side, and is in vertex presentation. Largest amniotic fluid pocket: 12.1 cm; normal range is 2-8 cm. Placental position is anterior , without previa. heart rate: 147 beats per minute. biometrics: Biparietal diameter: 4.9 cm, 20 weeks 6 days Head circumference: 17.8 cm, 20 weeks 2 days Abdominal circumference: 14.7 cm, 20 weeks 0 days Femur length: 3.2 cm, 20 weeks 0 days Clinically estimated gestational age: 20 weeks 3 days Composite gestational age from present scan: 20 weeks 2 days Estimated weight and percentile: 331 g, 27th percentile Anatomic survey: Neuro: Ventricles are normal at less than 10 mm. Cisterna magna is normal at 3-11 mm. Cerebellum is normal in size and morphology. Nuchal skin fold: Normal at less than 6 mm between 14 and 21 weeks gestational age. Face: Nose and lips, facial profile are normal. Spine: No evidence for spina bifida. Heart: 4 chambered heart is present, with normal ventricular outflow tracts. Diaphragm: Diaphragm is intact. Stomach: Left-sided stomach is present. Kidneys: No hydronephrosis. Normal ranges are less than 5 mm in 2nd trimester, less than 7 mm in 3rd trimester. Cord: 3 vessel cord has orthotopic insertion. Bladder: Normal in size. Extremities: All 4 extremities are visualized. IMPRESSION: Dichorionic, diamniotic living twin at 20 weeks 3 days, GODWIN of 04/02/2023. Twin a facial profile not visualized. Otherwise unremarkable anatomy survey. We strive to produce accurate, complete, and clear reports of imaging services. To assist us in improving patient care, this report was composed using standard report templates and voice recognition software. Therefore, it may contain abnormal punctuation, insertions and/or omissions. Occasional wrong-word or sound-alike substitutions may occur. Though we review the report and make efforts to correct it, we do recommend that the report be read carefully in proper context to recognize any text inaccuracies. Dictated by: Wilton Lucia M.D. on 11/16/2022 at 16:46 Approved by: Wilton Lucia M.D. on 11/16/2022 at 16:51
== END ==
PROVIDERS: Family Provider Family Medicine; PCP Family Medicine; Referring Provider Obstetrics & Gynecology; Visit Provider Obstetrics & Gynecology
DX: O30.042 Twin pregnancy, dichorionic/diamniotic, second trimester (principal); Z3A.20 20 weeks gestation of pregnancy
CPT/HCPCS: 76811; 76812

== ENCOUNTER → 2022-12-14 16:38 | Outpatient (CLI) | payer OTHER, MEDICAID, SELFPAY ==
[2022-12-14 17:04] LABS: Hematocrit 26.3 % (36-46); Hemoglobin 8.9 g/dL (12.0-16.0)
== END ==
PROVIDERS: Family Provider Family Medicine; PCP Family Medicine; Referring Provider Obstetrics & Gynecology; Visit Provider Obstetrics & Gynecology
DX: Z34.80 Encounter for supervision of other normal pregnancy, unspecified trimester (principal); Z3A.26 26 weeks gestation of pregnancy
CPT/HCPCS: 36415; 85014; 85018

== ENCOUNTER → 2022-12-20 07:38 | Outpatient (CLI) | payer OTHER, MEDICAID, SELFPAY ==
[2022-12-20 09:37] LABS: Glucose Fasting Gestational 83 mg/dL (76-95)
[2022-12-20 11:18] LABS: Glucose Tol Interp,Gestational INTERPRETATION
[2022-12-20 11:28] LABS: Glucose 2 Hour Gest 131 mg/dL (76-155)
[2022-12-20 11:28] LABS: Glucose 1 Hour Gest 131 mg/dL (76-180)
[2022-12-20 12:56] LABS: Glucose 3 Hour Gest 92 mg/dL (76-140)
== END ==
PROVIDERS: Family Provider Family Medicine; PCP Family Medicine; Referring Provider Obstetrics & Gynecology; Visit Provider Obstetrics & Gynecology
DX: R73.09 Other abnormal glucose (principal)
CPT/HCPCS: 36415; 82951; 82952

== ENCOUNTER → 2023-01-10 15:30 | Oncology outpatient (ONC) | payer OTHER, MEDICAID, SELFPAY ==
[2023-01-06 15:27] VITALS: BP 113/75; PULSE 114; RESP 16; TEMP 37; O2SAT 99
[2023-01-06] MEDS: ferumoxytoL 510 MG in SODIUM CHLORIDE 0.9% 100 ML 351 MG IV (15:30)
--- NOTE | 2023-01-06 16:31 | PC.NURSE ---
Tolerated first iron infusion without adverse reaction. Patient information sheet given to patient for her review.
[2023-01-06 16:33] VITALS: BP 115/71; PULSE 102; RESP 18; TEMP 36.7; O2SAT 99
[2023-01-10 15:58] VITALS: BP 101/56; PULSE 105; RESP 16; TEMP 37.1; O2SAT 98
[2023-01-10] MEDS: ferumoxytoL 510 MG in SODIUM CHLORIDE 0.9% 100 ML 351 MG IV (16:17)
== END ==
PROVIDERS: Family Provider Family Medicine; PCP Family Medicine; Referring Provider Obstetrics & Gynecology; Visit Provider Obstetrics & Gynecology
DX: O99.012 Anemia complicating pregnancy, second trimester (principal); Z3A.28 28 weeks gestation of pregnancy
CPT/HCPCS: 96365; Q0138

== ENCOUNTER 2023-02-14 14:20 | Outpatient (CLI) | payer OTHER, MEDICAID, SELFPAY ==
--- NOTE | 2023-02-14 15:03 | PM.OBTRLD ---
Visit Information Visit Information Date of evaluation: 02/14/23 Primary OB Provider: Lilly Vasquez On-call OB Provider: Kristin Velazquez Reason for Evaluation: Yes non-stress test non-stress test reason: other (twins) Vital Signs Vital Signs: Blood pressure 117/77, pulse of 84, temperature 35.9? [facility] Medical History (Updated 02/14/23 @ 15:05 by Kristin Velazquez MD) Acute pyelonephritis Anemia Bacterial vaginosis Chronic constipation Cough Gastric ulcer Genital warts IBS (irritable bowel syndrome) (~2019) Low back pain radiating down leg Migraine with aura and with status migrainosus Vaginal delivery (04/21/15) Surgical History (Updated 07/27/22 @ 13:54 by Barbie Ireland RN) [place] teeth extracted Family History (Updated 08/27/22 @ 21:17 by Fiorella Bustamante) Grandfather Stomach cancer Grandmother Heart disease Father Family estrangement Grandmother Hypertension Heart disease Mother Pre-diabetes Hyperlipidemia Overweight Grandfather Kidney disease Heart attack Sister No problems noted. Sister No problems noted. Sister No problems noted. Social History marital status: unmarried,living together household members: significant other and children lives independently: Yes caregiver/support person: Yes housing: apartment pets and animals: No education level: college (Associate's degree) occupational status: employed current occupational exposures/hazards: No special loly needs: No travel history: recent ([place]) seatbelt use: always helmet use: Yes water heater temp set < 120 deg: Yes working smoke detector in home: Yes fire extinguisher in home: Yes carbon monox detector in home: Yes firearms in home: No do you feel safe at home: Yes Smoking Status: Never smoker second hand exposure: No alcohol intake: former (3-4 glasses wine/week when not ) substance use type: does not use during the past year weight has: remained stable well-balanced diet: daily or most days daily servings fruits/ve-4 caffeine: Yes (6-12 oz coffee each morning) Type(s) of exercise: other (physical job) Review of Systems Review of Systems Narrative: Patient denies vaginal bleeding or leakage of fluid. No labor symptoms. No headaches, scotomata, epigastric pain. Good movement. Evaluation Evaluation Baseline heart rate: 130 (Baby B 140) Variability: Moderate (11-25) (Both) monitor accelerations: Present (Both) Monitor Decelerations: Absent (Both) Contraction Frequency (minutes): 5 Uterine Contraction Intensity: Mild Category of Tracing: Reactive Status: Category l Diagnosis, Plan/Disposition Final Diagnosis (1) 33 weeks gestation of : Status: Acute (2) Dichorionic diamniotic twin gestation: Status: Acute Plan/Disposition Plan: 33 week gestation, dichorionoic, di amniotic twin gestation. Reactive NST. To office for US. OB Disposition: home
== END 2023-02-14 15:10 | disposition home or self-care (01) ==
LOC: LABOR 14:28 → OB 02-21 06:55
PROVIDERS: Family Provider Family Medicine; PCP Family Medicine; Referring Provider Obstetrics & Gynecology; Visit Provider Obstetrics & Gynecology
DX: O30.043 Twin pregnancy, dichorionic/diamniotic, third trimester (principal); Z3A.33 33 weeks gestation of pregnancy
CPT/HCPCS: 59025; G0378; G0379

== ENCOUNTER 2023-02-21 13:18 | Observation (INO) | payer OTHER, MEDICAID, SELFPAY ==
--- NOTE | 2023-02-21 13:24 | DI.US.S_ITS ---
PROCEDURE: US OB >= 14 WEEKS FETUS INDICATIONS: Twin gestation. Growth US requested OUTSIDE/PRIOR DATING DATA: Last menstrual period (LMP): 06/26/2022 LMP-based estimated date of delivery (GODWIN): 04/02/2023. First dating scan (date and location): 08/24/2022. Estimated date of delivery (GODWIN) from first dating scan: 04/01/2023. The calculations are made using the clinical GODWIN of 04/02/2023. TECHNIQUE: Real-time scanning was performed of the fetus, with image documentation and biometric measurements. Endovaginal scanning: Not performed COMPARISON: [facility], , OB <= 14 WEEKS FETUS, 02/14/2023, 14:11. [facility], , OB >= 14 WEEKS FETUS, 02/21/2023, 13:12. FINDINGS: General: Dichorionic diamniotic living intrauterine gestation is present. Fetus A: Presentation: Left inferior vertex. Placenta: Placental position is posterior , without previa. Amniotic fluid index: 8.5 cm, normal range is 5-24 cm. Single deepest vertical pocket is 4.3 cm. heart rate: 140 beats per minute. biometrics: Biparietal diameter: 8.5 centimeters, 34 weeks 1 day Head circumference: 30.7 centimeters, 34 weeks 1 day Abdominal circumference: 30.0 centimeters, 34 weeks 0 days Femur length: 6.3 centimeters, 32 weeks 4 days Clinically estimated gestational age: 34 weeks 2 days Composite gestational age from present scan: 33 weeks 5 days Estimated weight and percentile: 2237 grams, 26 percentile Fetus B: Presentation: Right superior, vertex. Placenta: Placental position is anterior , without previa. Amniotic fluid index: 5.6 cm, normal range is 5-24 cm. Single deepest vertical pocket is 2.5 cm. heart rate: 147 beats per minute. biometrics: Biparietal diameter: 8.1 centimeters, 32 weeks 5 days Head circumference: 29.3 centimeters, 32 weeks 2 days Abdominal circumference: 30.1 centimeters, 34 weeks 0 days Femur length: 6.3 centimeters, 32 weeks 4 days Clinically estimated gestational age: 34 weeks 2 days Composite gestational age from present scan: 32 weeks 6 days Estimated weight and percentile: 2173 grams, 23 percentile IMPRESSION: 1. Living dichorionic diamniotic twin gestation with appropriate interval growth as above. 2. Twin B amniotic fluid index of 5.6 centimeters with a single deepest pocket 2.5 centimeters. We strive to produce accurate, complete, and clear reports of imaging services. To assist us in improving patient care, this report was composed using standard report templates and voice recognition software. Therefore, it may contain abnormal punctuation, insertions and/or omissions. Occasional wrong-word or sound-alike substitutions may occur. Though we review the report and make efforts to correct it, we do recommend that the report be read carefully in proper context to recognize any text inaccuracies. Dictated by: Jarad Steinberg M.D. on 02/21/2023 at 15:33 Approved by: Jarad Steinberg M.D. on 02/21/2023 at 15:42
[2023-02-21] MEDS: NIFEdipine 10 MG CAPSULE PO ×4 (13:44→14:46)
[2023-02-21] MEDS: NIFEdipine 30 MG TAB ER PO (15:46)
[2023-02-21] MEDS: BETAMETHASONE 30 MG/5 ML MDV 12 MG IM (15:46)
== END 2023-02-21 16:00 | disposition home or self-care (01) ==
PROVIDERS: Admitting Provider Obstetrics & Gynecology; Family Provider Family Medicine; PCP Family Medicine; Referring Provider Obstetrics & Gynecology; Visit Provider Obstetrics & Gynecology
DX: O60.03 Preterm labor without delivery, third trimester (principal); O30.003 Twin pregnancy, unspecified number of placenta and unspecified number of amniotic sacs, third trimester; Z3A.34 34 weeks gestation of pregnancy
CPT/HCPCS: 59025; 59050; 76811; 76812; 96372; G0378; G0379; J0702

== ENCOUNTER 2023-02-28 14:50 | Outpatient (CLI) | payer OTHER, MEDICAID, SELFPAY ==
--- NOTE | 2023-02-28 15:19 | DI.US.S_ITS ---
PROCEDURE: US OB BIOPHYSICAL PROFILE INDICATIONS: TWINS OUTSIDE/PRIOR DATING DATA: Last menstrual period (LMP): 06/26/2022. LMP-based estimated date of delivery (GODWIN): 04/02/2022. First dating scan (date and location): 08/24/2022, physician's office Estimated date of delivery (GODWIN) from first dating scan: 04/01/2023. The calculations are made using the working GODWIN of 04/02/2023. TECHNIQUE: Real-time scanning was performed of the fetus for biophysical profile, with image documentation. Color and pulse Doppler interrogation was also performed of the umbilical artery near its insertion into the placenta. Endovaginal scanning: Not performed COMPARISON: [facility], , OB >= 14 WEEKS FETUS, 02/21/2023, 13:59. FINDINGS: General: Twin diamniotic dichorionic gestations are present. Fetus A: Presentation: Left inferior vertex Placenta: Posterior, without previa Amniotic fluid index: 4.5 cm deepest pocket heart rate: 150 beats per minute Fetus B: Presentation: Right superior, vertex Placenta: Anterior, without previa In the attic fluid index Largest Pocket: 5.4 cm heart rate: 180 beats per minute Estimated gestational age from initial scan: 35 weeks 3 days. Fetus A Biophysical profile: Tone: 2 points. Movement: 2 points. Respiration: 2 points. Largest pocket of fluid: 2 points. Fetus B Biophysical profile: Tone: 2 points. Movement: 2 points. Respiration: 2 points. Largest pocket of fluid: 2 points. IMPRESSION: 1. Living late 3rd trimester diamniotic dichorionic twin gestations with no sonographic evidence of complications. 2. Twin a biophysical profile is 8/8 3. Twin B biophysical profile is 8/8 We strive to produce accurate, complete, and clear reports of imaging services. To assist us in improving patient care, this report was composed using standard report templates and voice recognition software. Therefore, it may contain abnormal punctuation, insertions and/or omissions. Occasional wrong-word or sound-alike substitutions may occur. Though we review the report and make efforts to correct it, we do recommend that the report be read carefully in proper context to recognize any text inaccuracies. Dictated by: Levy Arce M.D. on 02/28/2023 at 16:53 Approved by: Levy Arce M.D. on 02/28/2023 at 16:59
[2023-02-28] MEDS: BETAMETHASONE 30 MG/5 ML MDV 12 MG IM (16:09)
== END 2023-02-28 16:13 | disposition home or self-care (01) ==
LOC: LABOR 14:54 → OB 03-03 12:20
PROVIDERS: Family Provider Family Medicine; PCP Family Medicine; Referring Provider Obstetrics & Gynecology; Visit Provider Obstetrics & Gynecology
DX: Z34.83 Encounter for supervision of other normal pregnancy, third trimester (principal); Z3A.35 35 weeks gestation of pregnancy
CPT/HCPCS: 59025; 76819; 96372; G0378; G0379; J0702

== ENCOUNTER 2023-03-04 10:36 | Observation (INO) | payer OTHER, MEDICAID, SELFPAY ==
--- NOTE | 2023-03-04 11:25 | DI.US.S_ITS ---
PROCEDURE: US OB BIOPHYSICAL PROFILE INDICATIONS: twins 36 weeks OUTSIDE/PRIOR DATING DATA: Last menstrual period (LMP): 06/26/22. LMP-based estimated date of delivery (GODWIN): 04/02/23. First dating scan (date and location): 08/24/22, by Dr. Vasquez. Estimated date of delivery (GODWIN) from first dating scan: 04/01/23, by Dr. Vasquez. The calculations are made using the above GODWIN of 04/01/23. TECHNIQUE: Real-time scanning was performed of the fetus for biophysical profile, with image documentation. Color and pulse Doppler interrogation was also performed of the umbilical artery near its insertion into the placenta. Endovaginal scanning: Not needed COMPARISON: [facility], , OB BIOPHYSICAL PROFILE, 02/28/2023, 15:36. FINDINGS: General: Twin living intrauterine gestations are present. Presentation: Twin a is on the left inferiorly with vertex presentation and twin B is superiorly on the right also with vertex presentation. Dichorionic diamniotic gestation appears present. Placenta: Placental position is posterolateral for twin a, anterior for twin B, without previa. Amniotic fluid: 6.2 cm deep is pocket twin a, 3.6 cm deepest pocket twin B. heart rate: 149-150 beats per minute for both just gestations. Estimated gestational age from initial scan: 35 weeks 6 days for both.. Biophysical profile for both twins: Tone: 2 points. Movement: 2 points. Respiration: 2 points. Largest pocket of fluid: 2 points. IMPRESSION: Limited study at clinician request. Biophysical profile yields 8 of 8 possible points for each of the twin gestations. We strive to produce accurate, complete, and clear reports of imaging services. To assist us in improving patient care, this report was composed using standard report templates and voice recognition software. Therefore, it may contain abnormal punctuation, insertions and/or omissions. Occasional wrong-word or sound-alike substitutions may occur. Though we review the report and make efforts to correct it, we do recommend that the report be read carefully in proper context to recognize any text inaccuracies. Dictated by: Lion Moore M.D. on 03/04/2023 at 13:39 Approved by: Lion Moore M.D. on 03/04/2023 at 13:45
== END 2023-03-04 12:45 | disposition home or self-care (01) ==
PROVIDERS: Admitting Provider Obstetrics & Gynecology; Family Provider Family Medicine; PCP Family Medicine; Referring Provider Obstetrics & Gynecology; Visit Provider Obstetrics & Gynecology
DX: O30.003 Twin pregnancy, unspecified number of placenta and unspecified number of amniotic sacs, third trimester (principal); Z3A.36 36 weeks gestation of pregnancy
CPT/HCPCS: 59025; 59050; 76819; G0378; G0379

== ENCOUNTER 2023-03-07 12:39 | Observation (INO) | payer OTHER, MEDICAID, SELFPAY ==
--- NOTE | 2023-03-07 13:35 | PM.OBTRLD ---
Visit Information Visit Information Date of evaluation: 03/07/23 Primary OB Provider: Lilly Vasquez On-call OB Provider: Lilly Vasquez Reason for Evaluation: Yes non-stress test non-stress test reason: other (twins) [facility] Medical History (Updated 03/07/23 @ 13:36 by Lilly Vasquez MD) Acute pyelonephritis Anemia Bacterial vaginosis Chronic constipation Cough Gastric ulcer Genital warts IBS (irritable bowel syndrome) (~2019) Low back pain radiating down leg Migraine with aura and with status migrainosus Vaginal delivery (04/21/15) Surgical History (Updated 07/27/22 @ 13:54 by Barbie Ireland RN) [place] teeth extracted Family History (Updated 08/27/22 @ 21:17 by Fiorella Bustamante) Grandfather Stomach cancer Grandmother Heart disease Father Family estrangement Grandmother Hypertension Heart disease Mother Pre-diabetes Hyperlipidemia Overweight Grandfather Kidney disease Heart attack Sister No problems noted. Sister No problems noted. Sister No problems noted. Social History marital status: unmarried,living together household members: significant other and children lives independently: Yes caregiver/support person: Yes housing: apartment pets and animals: No education level: college (Associate's degree) occupational status: employed current occupational exposures/hazards: No special loly needs: No travel history: recent ([place]) seatbelt use: always helmet use: Yes water heater temp set < 120 deg: Yes working smoke detector in home: Yes fire extinguisher in home: Yes carbon monox detector in home: Yes firearms in home: No do you feel safe at home: Yes Smoking Status: Never smoker second hand exposure: No alcohol intake: former (3-4 glasses wine/week when not ) substance use type: does not use during the past year weight has: remained stable well-balanced diet: daily or most days daily servings fruits/ve-4 caffeine: Yes (6-12 oz coffee each morning) Type(s) of exercise: other (physical job) Evaluation Evaluation Baseline heart rate: 140 Variability: Moderate (11-25) monitor accelerations: Present Monitor Decelerations: Absent Uterine Contraction Intensity: Mild Diagnosis, Plan/Disposition Final Diagnosis (1) Amniotic fluid index borderline low: Status: Acute (2) Dichorionic diamniotic twin gestation: Status: Acute Problem details: NST reactive x 2 Plan/Disposition Plan: F/U in office as scheduled Induction scheduled OB Disposition: home
== END 2023-03-07 13:15 | disposition home or self-care (01) ==
PROVIDERS: Admitting Provider Obstetrics & Gynecology; Family Provider Family Medicine; PCP Family Medicine; Referring Provider Obstetrics & Gynecology; Visit Provider Obstetrics & Gynecology
DX: O41.03X0 Oligohydramnios, third trimester, not applicable or unspecified (principal); O30.043 Twin pregnancy, dichorionic/diamniotic, third trimester; Z3A.36 36 weeks gestation of pregnancy
CPT/HCPCS: 59025; 87081; 87653; G0378; G0379

== ENCOUNTER → 2023-03-07 13:43 | Outpatient (CLI) | payer OTHER, MEDICAID, SELFPAY ==
[2023-03-07 19:31] LABS: Strep Grp B PCR NEG for Grp B Strep
== END ==
PROVIDERS: Family Provider Family Medicine; PCP Family Medicine; Visit Provider Obstetrics & Gynecology
DX: Z34.90 Encounter for supervision of normal pregnancy, unspecified, unspecified trimester (principal); Z3A.36 36 weeks gestation of pregnancy
CPT/HCPCS: 87081; 87653

== ENCOUNTER 2023-03-07 14:03 | Inpatient (IN) | payer OTHER, MEDICAID, SELFPAY ==
[2023-03-07] MEDS: LACTATED RINGERS 1,000 ML 100 ML IV (15:29)
[2023-03-07 15:44] LABS: Creatinine Urine Random 20.2 mg/dL; Protein (Total) Urine Random 12 mg/dL (0-12); Protein Creatinine Ratio Urine 0.59 GRAM/24H
[2023-03-07 16:08] LABS: Add Manual Diff / Slide Review NO; Basophils Absolute Auto 0 /uL (0-100); Basophils Percent Auto 0.5 % (0-2); Eosinophils Absolute Auto 0 /uL (0-450); Eosinophils Percent Auto 0.4 % (2-4); Hemoglobin 12.1 g/dL (12.0-16.0); Lymphocytes Absolute Auto 2000 /uL (1100-4500); Lymphocytes Percent Auto 19.7 % (25-40); Mean Corpuscular HGB Conc 33.6 % (30-36); Mean Corpuscular Hemoglobin 29.5 PG (26-34); Mean Corpuscular Volume 87.9 fL (80-100); Monocytes Absolute Auto 700 /uL (0-900); Monocytes Percent Auto 6.4 % (3-14); Neutrophils Absolute Auto 7400 /uL (1500-7000); Platelet Count 184 X10^3/uL (150-400); Red Blood Cell Count 4.09 X10^6/uL (4.0-5.2); Red Cell Distribution Width 20.3 % (11.6-14.8); White Blood Cell Count 10.2 X10^3/uL (4.5-11.0)
[2023-03-07 16:09] LABS: Aspartate Aminotransferase 22 IU/L (14-36); Blood Urea Nitrogen 8 mg/dL (7-17); Estimated Glomerular Filt Rate > 60 mL/min (>60); Uric Acid 4.1 mg/dL (2.5-6.2)
[2023-03-07 16:33] LABS: Anisocytosis 1+; Rouleaux 1+
--- NOTE | 2023-03-07 18:05 | PM.OBHP.IH.1 ---
OB HPI Date/Time Date of admission: 03/07/23 Date Patient Seen: 03/07/23 Time Patient Seen: 18:05 History of Present Condition Chief complaint: OBS OF LABOR GODWIN Calculator Estimated Delivery Date Method Current WG Current Estimate 04/01/23 Ultrasound #1 36w 3d Other Estimates 04/02/23 Ultrasound #2 36w 2d 04/02/23 Conception 36w 2d # 2 Estimated Gestational Age (weeks): 36+3 : 2 Para: 1 care: good care, initiated at week # (8), number of visits (0) and pounds weight gain (42) Dating criteria OB: LMP confirmed by 1st trimester US Ultrasounds: normal 1st trimester US and normal mid trimester US Obstetrical complications: other (Twin gestation, low fluid in sac B) Medical complications OB: none Indications Indication for induction OB: gestational HTN/pre-eclampsia and oligohydramnios Preadmission Labs Last OB Lab Results: Blood Type O Positive 03/07/23 14:45 Antibody Screen Negative 03/07/23 14:45 Hematocrit 36.0 % (36-46) 03/07/23 14:45 Hemoglobin 12.1 g/dL (12.0-16.0) 03/07/23 14:45 Hepatitis B Surface Antigen Negative s/c (NEGATIVE) 08/30/22 13:30 Hepatitis C Antibody Negative s/c (NEGATIVE) 08/30/22 13:30 Rubella Antibody 50.2 IU/mL (>15) 08/30/22 13:30 Varicella-Zoster IgG Antibody 639 index (Immune >165) 08/30/22 13:30 -: Chlamydia screen: negative, Gonorrhea screen: negative and Urine: negative -: PAP smear: Abnormal (ASCUS, + HR HPV) Genetic Screens: Cell-free DNA: Normal (normal females) and Alpha-fetoprotein: Normal External Labs -: Urine: negative Prior (ies) Past Pregnancies Del. Date GA/Weeks Labor Lgth Wt Sex Route Outcome Anesthesia Place Delv Breastfeed Preg Comp Name 04/21/15 38 12 6 lb 8 oz Male vacuum vaginal live - full term IH 1 year other Francesco Stokes [facility]son-White Delivery Date: 04/21/15 Last Updated by: Barbie Ireland RN Hyperemesis ~4 months Evaluation Evaluation Baseline heart rate: 145 Variability: Moderate (11-25) monitor accelerations: Present Monitor Decelerations: Absent Contraction Frequency (minutes): 4 Uterine Contraction Intensity: Mild Status: Category l Dilation (cm): 3 Effacement (%): 80 station: -1 Position of cervix: mid Consistency: medium [facility] Medical History (Updated 03/07/23 @ 13:36 by Lilly Vasquez MD) Acute pyelonephritis Anemia Bacterial vaginosis Chronic constipation Cough Gastric ulcer Genital warts IBS (irritable bowel syndrome) (~2018) Low back pain radiating down leg Migraine with aura and with status migrainosus Vaginal delivery (04/21/15) Surgical History (Updated 07/27/22 @ 13:54 by Barbie Ireland RN) [place] teeth extracted Family History (Updated 08/27/22 @ 21:17 by Fiorella Bustamante) Grandfather Stomach cancer Grandmother Heart disease Father Family estrangement Grandmother Hypertension Heart disease Mother Pre-diabetes Hyperlipidemia Overweight Grandfather Kidney disease Heart attack Sister No problems noted. Sister No problems noted. Sister No problems noted. Social History marital status: unmarried,living together household members: significant other and children lives independently: Yes caregiver/support person: Yes housing: apartment pets and animals: No education level: college (Associate's degree) occupational status: employed current occupational exposures/hazards: No special loly needs: No travel history: recent ([place]) seatbelt use: always helmet use: Yes water heater temp set < 120 deg: Yes working smoke detector in home: Yes fire extinguisher in home: Yes carbon monox detector in home: Yes firearms in home: No do you feel safe at home: Yes Smoking Status: Never smoker second hand exposure: No alcohol intake: former (3-4 glasses wine/week when not ) substance use type: does not use during the past year weight has: remained stable well-balanced diet: daily or most days daily servings fruits/ve-4 caffeine: Yes (6-12 oz coffee each morning) Type(s) of exercise: other (physical job) Meds Home Medications and Allergies Home Medications Medication Instructions Recorded Confirmed Type prenat.vits,charlie,oav-lose-yqhgn 1 tab PO DAILY 07/27/22 03/07/23 History metoclopramide HCl 10 mg tablet 10 mg PO Q6H PRN nausea and 08/18/22 03/07/23 Rx (Reglan) vomiting #20 tabs sumatriptan succinate 50 mg tablet See Rx Instructions PO .COMPLEX 10/08/22 03/07/23 Rx (Imitrex) #20 tabs ondansetron 4 mg disintegrating See Rx Instructions .Route 11/15/22 03/07/23 Rx tablet .COMPLEX #20 tabs double electric breast pump 1 ea topical .prn #1 ea 12/24/22 03/07/23 Rx fluconazole 150 mg tablet 150 mg PO Q3D 2 doses #2 tabs 02/14/23 03/07/23 Rx (Diflucan) nifedipine 30 mg tablet,extended 30 mg PO BID #30 tabs 02/21/23 03/07/23 Rx release Allergies Allergy/AdvReac Type Severity Reaction Status Date / Time No Known Drug Allergies Allergy Verified 03/07/23 13:39 OB Exam Narrative Exam Narrative: Generally: Patient lying in bed, no acute distress Lungs: Clear to auscultation bilaterally Cardiovascular: Regular rate and rhythm Fundal height: 42 cm Estimated weight: 6 lb each Extremities: 1+ edema, 2+ DTRs, negative clonus Objective Labs 03/07/23 14:45 03/07/23 14:45 Labs: Laboratory Results - last 24 hr 03/07/23 03/07/23 03/07/23 14:25 14:45 14:45 WBC 10.2 RBC 4.09 Hgb 12.1 Hct 36.0 MCV 87.9 MCH 29.5 MCHC 33.6 RDW 20.3 H Plt Count 184 Neut % (Auto) 73.0 Lymph % (Auto) 19.7 L [place] % (Auto) 6.4 Eos % (Auto) 0.4 L Baso % (Auto) 0.5 Neut # (Auto) 7400 H Lymph # (Auto) 2000 [place] # (Auto) 700 Eos # (Auto) 0 Baso # (Auto) 0 RBC Morphology See below Anisocytosis 1+ H Rouleaux 1+ H BUN Creatinine Estimated GFR BUN/Creatinine Ratio Uric Acid AST U Random Total Protein 12 Urine Creatinine 20.2 Protein/Creatinin Ratio 0.59 Blood Type O Positive Antibody Screen Negative 03/07/23 14:45 WBC RBC Hgb Hct MCV MCH MCHC RDW Plt Count Neut % (Auto) Lymph % (Auto) [place] % (Auto) Eos % (Auto) Baso % (Auto) Neut # (Auto) Lymph # (Auto) Rincon # (Auto) Eos # (Auto) Baso # (Auto) RBC Morphology Anisocytosis Rouleaux BUN 8 Creatinine 0.40 L Estimated GFR > 60 BUN/Creatinine Ratio 20.0 Uric Acid 4.1 AST 22 U Random Total Protein Urine Creatinine Protein/Creatinin Ratio Blood Type Antibody Screen Assessment and Plan Assessment and Plan Assessment and Plan narrative: Assessment: 32-year-old 2 para 1 with dichorionic/diamniotic twins at 36-,3/7 weeks gestation Elevated blood pressure, normal preeclampsia labs Low fluid in both sacs Group B strep pending Plan: Pitocin induction of labor in the morning Epidural as necessary Artificial rupture membranes as needed Pediatrics notified Time Spent with Patient Total time spent with greater than 50% in coordination of care (as documented) at patient's floor/unit and/or counseling patient:: 25 - 35 minutes
[2023-03-07] MEDS: BETAMETHASONE 30 MG/5 ML MDV 12 MG IM (18:08)
[2023-03-07 18:23] VITALS: BP 113/73
[2023-03-07] MEDS: ACETAMINOPHEN 325 MG TABLET 650 MG PO (19:57)
[2023-03-07 22:00] LABS: Red Blood Cell Count 4.09 X10^6/uL (4.0-5.2); White Blood Cell Count 10.2 X10^3/uL (4.5-11.0)
[2023-03-07 22:01] LABS: Basophils Percent Auto 0.5 % (0-2); Eosinophils Percent Auto 0.4 % (2-4); Hemoglobin 12.1 g/dL (12.0-16.0); Lymphocytes Percent Auto 19.7 % (25-40); Mean Corpuscular HGB Conc 33.6 % (30-36); Mean Corpuscular Hemoglobin 29.5 PG (26-34); Mean Corpuscular Volume 87.9 fL (80-100); Monocytes Percent Auto 6.4 % (3-14); Neutrophils Absolute Auto 7400 /uL (1500-7000); Platelet Count 184 X10^3/uL (150-400); Red Cell Distribution Width 20.3 % (11.6-14.8)
[2023-03-07 22:02] LABS: Add Manual Diff / Slide Review SLIDE REVIEW; Basophils Absolute Auto 0 /uL (0-100); Eosinophils Absolute Auto 0 /uL (0-450); Lymphocytes Absolute Auto 2000 /uL (1100-4500); Monocytes Absolute Auto 700 /uL (0-900)
[2023-03-08] MEDS: OXYTOCIN PREMIX 30 UNIT/500 ML PLAST..BAG IV (05:04)
[2023-03-08] MEDS: CALCIUM CARBONATE 500 MG TAB 1000 MG PO (05:06)
[2023-03-08] MEDS: FAMOTIDINE 20 MG/2 ML VIAL IV (07:45)
--- NOTE | 2023-03-08 10:41 | PM.OBPNLAB ---
Date/Time Date Patient Seen: 03/08/23 Time Patient Seen: 10:42 Pain Control Pain control: tolerating well Pelvic Exam Dilation (cm): 5 Effacement (%): 85 station: -1 Amniotic membrane status: Bulging Contractions Contractions on admission: irregular Monitor mode: External Pitocin rate (mU/min): 8 Contraction frequency (min): 2 Contraction duration (min): 1 Contraction pattern: Regular Contraction intensity: Moderate Status status: Category l Heart Rate Baseline: 135 Monitor Accelerations: Present Monitor Decelerations: Variable Monitor Variability: Moderate Assessment and Plan Assessment: active labor and induction ongoing Comments: Discontinue Pitocin Epidural as needed Position changes Reevaluate to restart Pitocin
--- NOTE | 2023-03-08 12:25 | P.PCN_ITS ---
[facility] <Josh Perez, DO - Last Filed: 03/09/23 07:36> Pre-procedure Procedure: Continuous Lumbar Epidural for L&D Attending OB provider: Lilly Vasquez PMH/ROS narrative: 36+3 , twin gestation, no medical complications, elevated BP recently, labs WNL ASA Class: II Labs: Hct 36.0 % (36-46) 03/07/23 14:45 Hct 36.0 % (36-46) 03/07/23 14:45 Plt Count 184 X10^3/uL (150-400) 03/07/23 14:45 Plt Count 184 X10^3/uL (150-400) 03/07/23 14:45 Medications: Current Medications Generic Name Dose Route Start Last Admin Trade Name Freq PRN Reason Stop Dose Admin Acetaminophen 650 mg 03/07/23 19:33 03/07/23 19:57 Acetaminophen 325 Mg Tablet PO 650 mg Q6H PRN Administration Fever/Mild Pain (1-3) Calcium Carbonate 1,000 mg 03/07/23 14:26 03/08/23 05:06 Calcium Carbonate 500 Mg Tab PO 1,000 mg Q4HR PRN Administration Dyspepsia Carboprost Tromethamine 250 mcg 03/07/23 14:26 Carboprost 250 Mcg/Ml Ampul IM Q90M PRN Bleeding Famotidine 20 mg 03/08/23 06:45 03/08/23 07:45 Famotidine 20 Mg/2 Ml Vial IV 20 mg NOW [place] Administration Fentanyl 50 mcg 03/07/23 14:26 Fentanyl 100 Mcg/2 Ml Inj IV Q1H PRN Pain, Moderate (4-6) Oxytocin/Lactated Ringer's 30 unit in 500 mls @ 200 mls/hr 03/07/23 14:26 Oxytocin Premix IV CONT PRN Bleeding Protocol Tranexamic Acid 1,000 mg/ 100 mls @ 200 mls/hr 03/07/23 14:26 Sodium Chloride IV NOW PRN Bleeding Lactated Ringer's 1,000 mls @ 100 mls/hr 03/07/23 14:30 03/07/23 15:29 Lactated Ringers IV 100 mls/hr CONT [place] Administration Oxytocin/Lactated Ringer's 30 unit in 500 mls @ 2 mls/hr 03/08/23 05:00 03/08/23 05:04 Oxytocin Premix IV 2 milliunit/min TITRATE [place] 2 mls/hr Administration Protocol 2 MILLIUNIT/MIN Lidocaine HCl 20 ml 03/07/23 14:26 Lidocaine 1% 20 Ml INJ INTRA-OP PRN Post Delivery Methylergonovine Maleate 0.2 mg 03/07/23 14:26 Methylergonovine 0.2 Mg Tablet PO Q6HR PRN Heavy Bleeding Methylergonovine Maleate 0.2 mg 03/07/23 14:26 Methylergonovine 0.2 Mg/Ml Vial IM NOW PRN Bleeding Misoprostol 800 mcg 03/07/23 14:26 Misoprostol 200 Mcg Tablet FL NOW PRN Bleeding Misoprostol 400 mcg 03/07/23 14:26 Misoprostol 200 Mcg Tablet SL NOW PRN Bleeding Naloxone HCl 0.2 mg 03/07/23 14:26 Naloxone 0.4 Mg/Ml Vial IV Q2MIN PRN Opiate Reversal Ondansetron HCl 4 mg 03/07/23 14:26 Ondansetron 4 Mg/2 Ml Inj IV Q4HR PRN Nausea And Vomiting Oxytocin 10 unit 03/07/23 14:26 Oxytocin 10 Unit/Ml Vial IM NOW PRN Bleeding Allergies: Allergies Allergy/AdvReac Type Severity Reaction Status Date / Time No Known Drug Allergies Allergy Verified 03/07/23 18:32 Procedure Insertion date: 03/08/23 Insertion time: 11:10 Prep/Local: betadine x3 and 1% lidocaine Interspace: L2-3 Patient position: sitting Needle: 18 gauge Hustead (CSE: 27g Pencan through Hustead, clear CSF, 1mg MPF bupiv) Loss of resistance with: saline ZULEMA at (cm): 5 Catheter placed at SKIN (cm): 11 Catheter in SPACE (cm): 6 Insertion: No CSF, No Blood, No Paresthesia with insertion, No Paresthesia with injection and No Test dose reaction Initial Medications TEST DOSE time: 11:12 TEST DOSE: 1.5% lidocaine with epinephrine 1:200k (mL): 3 Infusion INFUSION: 0.125% bupivacaine and with fentanyl 2 mcg/mL Initial rate (mL/hr): 8 Subsequent interventions: 0.1% bupiv + 2mcg/mL fentanyl PCEA at 8/. Please see OR anesthesia record for urgent/emergent for baby B after baby A delivered vaginally in OR. Epidural removed with tip intact following c- section. Labor epidural end at 17:29, OR/CS time start 17:29 Post-procedure Anesthesia time START: 11:05 Anesthesia time END: 17:29 <Taqueria David CRNA - Last Filed: 03/08/23 19:30> Infusion Subsequent interventions: 0.1% bupiv + 2mcg/mL fentanyl PCEA at 8/4. Please see OR anesthesia record for urgent/emergent for baby B after baby A delivered vaginally in OR. Epidural removed with tip intact following c- section. Post-procedure Anesthesia time END: 19:03 Post-procedure Anesthesia Assessment: Yes CV function: HR/BP stable, Yes Resp function: RR/sat/airway adequate, Yes Post-op hydration adequate, Yes Pain control adequate, Yes Nausea & vomiting absent, Yes Temperature > 36 C and Yes Mental status appropriate
[2023-03-08] MEDS: BETAMETHASONE 30 MG/5 ML MDV 12 MG IM (12:59)
--- NOTE | 2023-03-08 16:39 | PM.OBPNLAB ---
Date/Time Date Patient Seen: 03/08/23 Time Patient Seen: 16:39 Pain Control Pain control: tolerating well and epidural Pelvic Exam Dilation (cm): 7 Effacement (%): 100 station: -1 Amniotic membrane status: Bulging Contractions Monitor mode: External Contraction frequency (min): 2 Contraction pattern: Regular Contraction intensity: Moderate Status status: Category l Heart Rate Baseline: 140 Comments: FSE applied to twin A, 100%/7/-1 [place]/LOT Assessment and Plan Assessment: induction ongoing Plan: continuous present management Comments: Anticipate
[2023-03-08] MEDS: FENT 2MCG/ML BUPIV 0.1% EPI 200 MCG/100 ML PLAST..BAG 8 MCG EPIDURAL (17:22)
[2023-03-08] MEDS: CEFAZOLIN 2 GM/100 ML PREMIX 100 ML IV (18:04)
--- NOTE | 2023-03-08 18:19 | SUR.OPER ---
Supine on Padded OR bed, head on pillow, safety belt at thigh, arms secured on padded arm boards at <90 degrees abduction. Bump under right buttock. Legs uncrossed with pillow under knees, gel pad to heels, tape over blanket to lower legs.
--- NOTE | 2023-03-08 18:22 | DI.RAD.S_ITS ---
PROCEDURE: XR ABDOMEN 1V INDICATIONS: DETERMINE LACK OF INSTRUMENTS, SPONGES, AND SUTURE IN ABDOME TECHNIQUE: One view of the abdomen acquired. COMPARISON: None. FINDINGS: Surgical changes and devices: None. Bowel: Bowel gas pattern is normal. Soft tissues: No suspicious abdominal calcifications. Visualized solid organ contours appear normal in size. No radiopaque foreign body detected. Bones: No suspicious bony lesions. IMPRESSION: No radiopaque foreign body detected. Dictated by: Leana Willis M.D. on 03/08/2023 at 20:03 Approved by: Leana Willis M.D. on 03/08/2023 at 20:03
--- NOTE | 2023-03-08 18:29 | SUR.OPER ---
Viable baby girl (baby B) born at 1802. Placenta delivered at 1802. Cord blood and placenta given to OB RNs.
[2023-03-08] MEDS: ACETAMINOPHEN IV 1,000 MG/100 ML VIAL 400 MG IV (18:31)
--- NOTE | 2023-03-08 18:45 | P.PCN_ITS ---
Procedures Date/Time Date of procedure: 03/08/23 Time of procedure: 18:02 General Procedure description: [place] Wheeler Documentation I assisted the OB mergers and acquisitions banker in the section for this patient. My responsibilities included retracting and suctioning, providing fundal pressure during delivery and following with suture during closure. Please see the OB's note for details of the surgery.
--- NOTE | 2023-03-08 18:47 | SUR.OPER ---
Intra-operative xray performed and read by Dr. Vasquez. No soft goods, sharps, or instruments in patient.
[2023-03-08 18:57] VITALS: BP 117/64; PULSE 90; RESP 11; TEMP 36.6; O2SAT 97
[2023-03-08 19:00] VITALS: BP 117/66; PULSE 86; RESP 11; O2SAT 97
[2023-03-08 19:02] VITALS: BP 111/64; PULSE 85; RESP 11; O2SAT 98
[2023-03-08 19:07] VITALS: BP 115/67; PULSE 86; RESP 17; O2SAT 97
[2023-03-08 19:12] VITALS: BP 112/63; PULSE 84; RESP 11; TEMP 36.5; O2SAT 98
--- NOTE | 2023-03-08 20:00 | P.OP_ITS ---
Operative Date/Time/Diagnoses Date of procedure: 03/08/23 Time of procedure: 19:00 Pre-op diagnosis: 36+ 4 weeks' gestation Cord presentation for Baby B Non reassuring FHT's Post-op diagnosis: same Procedure & Clinicians Procedure: Emergent low-transverse section Same procedure as scheduled: Yes Indications: heart tones in the 70s Cord presenting in baby B Surgeon: Lilly Izquierdo Yes if Unassisted: No Population Health Manager: Blessing Estrella Reason for Population Health Manager: The clinical services assistant was necessary to retract upon entry into the abdomen and uterus. She assisted with delivery of the infant with fundal pressure. She assisted with closure with retraction, clipping of suture, and closure of the contralateral fascia. Anesthesia Type: Epidural Operative Notes Findings: Live female infant in the vertex presentation Several loops of cord in the fore bag Clear amniotic fluid, small amount Normal uterus, tubes, and ovaries Closure Type: primary Specimen(s): cord blood, cord pH and placenta Intraoperative meds administered: Acetaminophen, Duramorph, Ketorolac and Pitocin Applied: Catheter (To continuous drainage) Estimated Blood Loss (mL): 500 Blood products transfused: none Procedure in detail: After the delivery of the first baby, an ultrasound was performed and confirmed that cord was presenting in sac B. The heart tones were initially found to be in the 70s, then went up to the 150s, then back down to the 70s. The patient was urgently placed on the operating room table in the dorsal supine position with a leftward tilt. She was emergently prepped and draped in the usual sterile fashion. After epidural analgesia was found be adequate, a Pfannenstiel skin incision was made 2 fingerbreadths above the pubic symphysis and carried through to the underlying layer fascia. The fascia was nicked in the midline and the incision extended bilaterally with the Munguia scissors. The superior aspect of the fascial incision was grasped with the Torsten clamps, elevated, and the underlying rectus muscles dissected off sharply and bluntly. Attention was then turned to the inferior aspect of this incision which in a similar fashion was grasped with the Torsten clamps, elevated, and the underlying rectus muscles dissected off sharply and bluntly. The rectus muscles were in the midline. The peritoneum was identified, grasped between 2 hemostats, and entered sharply with the Metzenbaum scissors. This incision was extended bluntly. The bladder blade was inserted. The vesicouterine peritoneum was identified, grasped with a pickup, and entered sharply with the Metzenbaum scissors. This incision was extended bilaterally, and the bladder flap created digitally. The lower uterine segment was incised in a transverse fashion with the scalpel. Upon entering the amniotic sac there was a small amount of clear fluid. The was delivered without difficulty. The cord was double clamped and cut. The was handed off to waiting RN/RT/Pediatrics. A piece of cord for cord pH was obtained. Cord bloods were obtained. Pitocin was given in the IV fluids. The placenta was delivered by expression. The uterus was cleared of all clots and debris. The uterine incision was closed with 1 - 0 Chromic in a running interlocking fashion, and a second layer, and a second layer the same suture was used for imbricating layer. Hemostasis was achieved. The tubes and ovaries were examined and were found to be normal. The gutters were cleared of all clots and debris. The bladder flap was reapproximated using 2-0 Vicryl in a running fashion. The parietal peritoneum was closed using 2-0 Vicryl in a running fashion. The fascia was reapproximated using 0 Vicryl in a running fashion. Hemostasis was achieved in the subcutaneous layer using the Bovie. Six simple interrupted sutures with 3-0 Vicryl were placed to reapproximate the subcutaneous layer. The skin was closed with 4-0 Monocryl in a subcuticular fashion. Steri-Strips and an Aquacel dressing were placed. The uterus was expressed of a small amount of old blood. Sponge, lap, and instrument counts were correct x2. The patient tolerated the procedure well, and was taken to PACU in stable condition. Complications: none Baby 2: Infant Gender: Female Presentation: vertex Position: Right Occiput Anterior Placental Delivery Description: Expressed Cord Vessel Description: 3 Vessels score (1 min): 5 score (5 min): 7 score (10 min): 8 weight: 4 lb 13 oz Post-operative Condition: stable Disposition: PACU Aftercare: routine postop
--- NOTE | 2023-03-08 20:01 | P.PCNOB_ITS ---
Events: Labor < 37 wks, Labor Induction and Oligohydramnios Labor & Delivery Delivery date: 03/08/23 Intrapartal Events: None Cervical ripening method: none Induction method: per pitocin protocol Delivery augmentation: rupture of membranes Delivery monitor: external uterine and internal FHT Route of delivery: Episiotomy description: None L&D Laceration Description: None Quantitative Blood Loss: 100 Anesthesia Type: Epidural Complications: None Narrative: Patient complete and pushed with 4 contractions. At 5:37 p.m., a live female delivered in the ELIEZER presentation, over an intact perineum. A nuchal cord x1 was reduced on the perineum. The remainder of the body delivered without difficulty and was placed on mom's abdomen. After 1 minute the cord was double clamped and cut. Cord bloods were obtained. The perineum was inspected and there were no lacerations. An ultrasound was performed and cord was presenting in the second sac in front of the head. The membranes were intact. An emergency section was performed and is dictated as a separate note. [place] Baby 1: Infant gender: Female Presentation: vertex Position: Right Occiput Anterior Cord Vessel Description: Nuchal Cord (x 1) score (1 min): 8 score (5 min): 9 weight: 5 lb 9.2 oz Plan for aftercare: Routine care
[2023-03-08] MEDS: LACTATED RINGERS 1,000 ML 100 ML IV (20:39)
[2023-03-09] MEDS: KETOROLAC 30 MG/ML VIAL IV ×2 (01:49→11:02)
--- NOTE | 2023-03-09 06:11 | PM.OBPN.1 ---
Subjective - OB Subjective Patient comments: no complaints and pain well controlled baby status: doing well and nursing well Date Patient Seen: 03/09/23 Time Patient Seen: 06:11 Interval history: Patient is doing very well. Tolerating a diet. going well. She is pumping. Bradley catheter was removed a short time ago. She has not voided yet. Pain is well controlled with Toradol. Exam Vital Signs (past 8 hours): Oxygen Delivery Method Room Air Narrative Exam Narrative: Generally: Patient lying in bed, no acute distress Lungs: Clear to auscultation bilaterally Cardiovascular: Regular rate and rhythm Fundus: Firm at U -2 Extremities: No edema, negative Homans Objective Labs 03/07/23 14:45 03/07/23 14:45 Assessment & Plan Plan day: 1 plan OB: routine care and routine postop care Time Spent With Patient Time: Total time spent is greater than 50% in coordination of care (as documented) at patient's floor/unit and/or counseling patient: Time with patient: 15-24 minutes
[2023-03-09 07:10] LABS: Add Manual Diff / Slide Review NO; Basophils Absolute Auto 0 /uL (0-100); Basophils Percent Auto 0.1 % (0-2); Eosinophils Absolute Auto 0 /uL (0-450); Hematocrit 27.5 % (36-46); Hemoglobin 9.1 g/dL (12.0-16.0); Lymphocytes Absolute Auto 1400 /uL (1100-4500); Lymphocytes Percent Auto 8.5 % (25-40); Mean Corpuscular HGB Conc 32.9 % (30-36); Mean Corpuscular Hemoglobin 29.1 PG (26-34); Mean Corpuscular Volume 88.4 fL (80-100); Monocytes Absolute Auto 1200 /uL (0-900); Monocytes Percent Auto 7.1 % (3-14); Neutrophils Absolute Auto 14200 /uL (1500-7000); Neutrophils Percent Auto 84.3 % (50-75); Platelet Count 150 X10^3/uL (150-400); Red Blood Cell Count 3.11 X10^6/uL (4.0-5.2); Red Cell Distribution Width 20.2 % (11.6-14.8); White Blood Cell Count 16.9 X10^3/uL (4.5-11.0)
[2023-03-09 07:56] LABS: Anisocytosis 1+
[2023-03-09] MEDS: ACETAMINOPHEN 325 MG TABLET 650 MG PO (16:53)
[2023-03-09] MEDS: diphenhydrAMINE 50 MG/ML VIAL 25 MG IV (18:28)
[2023-03-09] MEDS: IBUPROFEN 600 MG TABLET PO (18:28)
[2023-03-10] MEDS: IBUPROFEN 600 MG TABLET PO ×4 (02:44→20:28)
[2023-03-10] MEDS: ACETAMINOPHEN 325 MG TABLET 650 MG PO ×4 (02:44→20:26)
[2023-03-10] MEDS: PRENATAL VIT,CALC/IRON/FOLIC 1 TABLET 1 TAB PO (09:01)
--- NOTE | 2023-03-10 13:01 | PM.OBPN.1 ---
Subjective - OB Subjective Patient comments: no complaints, pain well controlled, tolerating diet and flatus present baby status: doing well and nursing well (And pumping) feeding status: breast and bottle feeding (Giving own breast milk in a bottle) Date Patient Seen: 03/10/23 Time Patient Seen: 12:05 Interval history: Postop day #1-2 status post vaginal delivery of baby A, and emergent of baby B. Patient doing very well. She has been voiding without the catheter. Tolerating a diet. Pain is well controlled. She has showered x2. Ambulating. Bleeding is tapering. Exam Vital Signs (past 8 hours): Oxygen Delivery Method Room Air Narrative Exam Narrative: Generally: Patient is sitting up in bed, pumping, no acute distress Lungs: Clear to auscultation bilaterally Cardiovascular: Regular rate and rhythm Fundus: Firm at U -1 Incision: Clean dry and intact with Aquacel dressing Extremities: Trace edema, negative Homans Objective Labs 03/09/23 06:48 03/07/23 14:45 Assessment & Plan Plan day: 1 plan OB: routine care and routine postop care Comments: Anticipate discharge March 11, 2023. Time Spent With Patient Time: Total time spent is greater than 50% in coordination of care (as documented) at patient's floor/unit and/or counseling patient: Time with patient: 15-24 minutes
[2023-03-10] MEDS: LANOLIN OINT 7 GM 1 APPLIC TOP (20:27)
[2023-03-11] MEDS: ACETAMINOPHEN 325 MG TABLET 650 MG PO ×2 (03:19→09:29)
[2023-03-11] MEDS: IBUPROFEN 600 MG TABLET PO ×2 (03:20→09:29)
[2023-03-11] MEDS: DOCUSATE 100 MG CAPSULE PO (09:28)
[2023-03-11] MEDS: PRENATAL VIT,CALC/IRON/FOLIC 1 TABLET 1 TAB PO (09:29)
[2023-03-11] MEDS: OXYCODONE IR 5 MG TABLET PO (10:37)
[2023-03-11 11:19] VITALS: BP 112/63; PULSE 84; RESP 12; TEMP 37.1
--- NOTE | 2023-04-02 18:49 | PM.OBDS.1 ---
Discharge Providers Provider Date of admission: 03/07/23 14:03 Discharge Date: 03/10/23 Primary care physician: Ирина Guevara MD Consults: 03/07/23 14:26 Consult to Anesthesiology Urgent Comment: Consulting Provider: Anesthesiologist Reason for consultation: Epidural Has provider been notified: No 03/08/23 20:00 Consult to Drawing Operator Routine Comment: Discharge provider: Lilly Vasquez MD Summary Hospital Course Date Patient Seen: 03/10/23 Time Patient Seen: 09:30 Diagnoses: 36+ 3 weeks' gestation Dichorionic/diamniotic twin Vertex vertex presentation Gestational hypertension Low fluid in both sacs Induction of labor Epidural analgesia Artificial rupture of membranes scalp electrode placement Spontaneous vaginal delivery baby A Emergency baby B Hospital Course: Patient is a 32-year-old 2 para 2 who presented on March 07, 2023 for an appointment in the office. She was found to have gestational hypertension and low fluid in both sacs. She was at 36+ 3 weeks' gestation. She was sent to the center for admission. On the morning of March 08, 2023 Pitocin was started. She received an epidural for pain management. A scalp electrode was placed on baby A due to category 2 tracing. She progressed to complete dilation and had a spontaneous vaginal delivery of baby A. For baby B there was found to be a cord presenting in front of the head and she underwent an emergency for baby B. Her postoperative course was unremarkable. She was discharged home on March 10, 2023. She was both babies. She was tolerating a diet. No nausea or vomiting. She was voiding without the catheter. Peripartum Data Infant Delivery Method: Emergency Section (B, baby A) Laceration Description: None Episiotomy description: None Procedures: Pitocin induction of labor Epidural analgesia scalp electrode, baby A Spontaneous vaginal delivery baby A Emergency baby B complications: none Ralph 1: Gender: Female Disposition of : home 2: Gender: Female Disposition of : home Status at Discharge Cognitive/behavioral status at discharge: oriented Functional status at discharge: independent ambulation Overall status at discharge: patient is progressing back to baseline Time Spent with Patient Time attestation: Total time spent providing and/or coordinating discharge services: Time spent: Less than 30 minutes Objective Labs 03/09/23 06:48 03/07/23 14:45 Exam Vital Signs (past 8 hours): Oxygen Delivery Method Room Air Narrative Exam Narrative: Generally: Mom's sitting up in bed, holding 's, no acute distress Lungs: Clear to auscultation bilaterally Cardiovascular: Regular rate and rhythm Fundus: Firm at U Incision: Clean dry and intact with Aquacel dressing Extremities: No edema, negative Homans Discharge Plan Discharge Plan Patient Disposition: Home Provider Discharge Comment: Call with fever, chills, or redness or drainage around the incision Call with bleeding vaginally soaking a pad in an hour Ibuprofen 600 mg every 6 hours as needed Tylenol 650 mg every 6 hours as needed Push oral fluids Stool softener as needed Discharge orders & Medications Prescriptions: New oxycodone 5 mg tablet 5 mg PO Q4H PRN (Reason: pain) Qty: 20 0RF Continued sumatriptan succinate [Imitrex] 50 mg tablet See Rx Instructions PO .COMPLEX Qty: 20 1RF Rx Instructions: take 1 tab at onset of headache; if no relief may repeat 1 tab after at least 2 hrs; max = 4 tabs/24 hr PO double electric breast pump 1 ea topical .prn Qty: 1 0RF Rx Instructions: With supplies prenat.vits,charlie,[id number] Tablet 1 tab PO DAILY Discontinued metoclopramide HCl [Reglan] 10 mg tablet 10 mg PO Q6H PRN (Reason: nausea and vomiting) Qty: 20 3RF ondansetron 4 mg tablet,disintegrating See Rx Instructions .ROUTE .COMPLEX Qty: 20 2RF Dose Instruction: dissolve 1 tablet by mouth every 6-8 hours As Needed for nausea and vomiting Rx Instructions: dissolve 1 tablet by mouth every 6-8 hours As Needed for nausea and vomiting nifedipine 30 mg tablet extended release 30 mg PO BID Qty: 30 1RF fluconazole [Diflucan] 150 mg tablet 150 mg PO Q3D Qty: 2 0RF Rx Instructions: may repeat second dose 72 hrs after first dose if symptoms persist Follow up/Referrals: Lilly Vasquez MD [Physician] - (One week surgical dressing removal: TuesdayMarch 15 @ 1100 6 week follow-up: 04/21/2023 @ 0930) Diet/Activity/Treatments Diet: Regular Activity: NO heavy lifting Skin/Wound/Dressing Care Report to your healthcare provider any signs of infection, such as:: chills, fever, increased pain, unusual drainage and unusual redness Dressing: Do not remove Visit Report/Discharge Packet Instructions: DI for Labor and Delivery, Vaginal , DI for , DI for Prescription Opioid Use Stand Alone Forms: Patient Portal/API, Stroke Signs & Symptoms Discharge Data Primary Care Provider: Ирина Guevara Discharges patient from system. Discharge Date/Time: 03/11/23 11:19
== END 2023-03-11 11:19 | disposition home or self-care (01) | DRG 540 ==
PROVIDERS: Admitting Provider Obstetrics & Gynecology; Family Provider Family Medicine; PCP Family Medicine; Referring Provider Obstetrics & Gynecology; Visit Provider Obstetrics & Gynecology
PROC: 10E0XZZ Delivery of Products of Conception, External Approach (ICD-10-PCS; CPT 59514; principal; 2023-03-08 18:15)
DX: O13.4 Gestational [pregnancy-induced] hypertension without significant proteinuria, complicating childbirth (principal); O30.043 Twin pregnancy, dichorionic/diamniotic, third trimester; Z3A.36 36 weeks gestation of pregnancy; Z37.2 Twins, both liveborn; O76 Abnormality in fetal heart rate and rhythm complicating labor and delivery; O69.89X2 Labor and delivery complicated by other cord complications, fetus 2
CPT/HCPCS: 36415; 59025; 59050; 59409; 59514; 74018; 76815; 82570; 84156; 84450; 84550; 85025; 86850; 86900; 86901; 87081; 87653; G0378; G0379; J0131; J0690; J0702; J1200; J1885; J2274; J2405; J2590; J2765

== ENCOUNTER → 2023-03-23 11:30 | Outpatient (CLI) | payer OTHER, MEDICAID, SELFPAY ==
[2023-03-23 13:26] LABS: Appearance Urine UA CLEAR; Bilirubin Urine UA NEGATIVE (NEGATIVE); Color Urine UA YELLOW; Glucose Urine UA NEGATIVE (Negative); Ketones Urine UA NEGATIVE (NEGATIVE); Leukocyte Esterase Urine UA 1+ (NEGATIVE); Nitrite Urine UA NEGATIVE (Negative); Occult Blood Urine UA 2+ (Negative); Protein Urine UA NEGATIVE (Negative); Specific Gravity Urine UA 1.025 (1.000-1.035); Urobilinogen Urine UA 0.2 E.U./dL (0.2)
[2023-03-23 13:28] LABS: pH Urine UA 5.5 (4.5-8.0)
[2023-03-23 13:38] LABS: Bacteria Urine Few (2-10); Culture Indicated Urine Specimen Cultured; RBC Urine 1-5/HPF (0-5/HPF); Squamous Epithelial Cell Urine 1-5 /HPF (0-5/HPF); WBC Urine 1-5/HPF (0-5/HPF)
== END ==
PROVIDERS: Family Provider Family Medicine; PCP Family Medicine; Referring Provider Family Medicine; Visit Provider Family Medicine
DX: R30.0 Dysuria (principal)
CPT/HCPCS: 81001; 87086

== ENCOUNTER 2024-02-13 11:48 | Emergency (ER) | payer OTHER, MEDICAID, SELFPAY ==
[2024-02-13 12:08] VITALS: BP 145/93; PULSE 85; RESP 16; TEMP 36.9; O2SAT 100; BMI 22.1
--- NOTE | 2024-02-13 12:43 | PC.NURSE ---
Patient has hx of migraines and had one start 3 days ago. Went to [facility] for migraine treatment on Tuesday but symptoms have returned. She reports feeling photophobic and nauseated with severe headache.
== END 2024-02-13 13:23 | disposition left against medical advice (07) ==
PROVIDERS: Emergency Provider Student in an Organized Health Care Education/Training Program; Family Provider Family Medicine; PCP Family Medicine
CPT/HCPCS: 99281

== ENCOUNTER 2025-04-14 09:28 | Emergency (ER) | payer OTHER, SELFPAY ==
[2025-04-14 09:40] VITALS: BP 145/81; PULSE 84; RESP 16; TEMP 36.8; O2SAT 97; BMI 24.7
--- NOTE | 2025-04-14 09:59 | DI.CT.S_ITS ---
PROCEDURE: CT HEAD/BRAIN WO CON INDICATIONS: sudden severe HOU TECHNIQUE: Noncontrast 4.5 mm thick angled axial sections acquired from the foramen magnum to the vertex, with coronal and sagittal reformats. For radiation dose reduction, the following was used: automated exposure control, adjustment of mA and/or kV according to patient size. COMPARISON: [facility], CT, CT ANGIO HEAD AND NECK, 04/14/2025, 10:09. FINDINGS: Image quality: Diagnostic. CSF spaces: Basal cisterns are patent. No extra-axial fluid collections. Ventricles are normal in size and shape. Brain: Increased ill-defined densities within the bilateral basal ganglia with a symmetric distribution favored represent calcification. No midline shift. No intracranial mass. Heaton-white matter interface is normal. Skull and face: Calvarium and visualized facial bones are intact, without suspicious lesions. Sinuses: Visualized sinuses and mastoids are clear. IMPRESSION: No distinct intracranial hemorrhage identified. Densities within the basal ganglia are symmetric and favored to represent calcification. Given the young age of the patient, basal ganglia calcifications may be pathologic, consider metabolic and genetic abnormalities with remote infectious etiologies not excluded. Recommend nonemergent neurology consultation. Dictated by: Sumeet Garcia M.D. on 04/14/2025 at 9:31 Approved by: Sumeet Garcia M.D. on 04/14/2025 at 9:37
--- NOTE | 2025-04-14 09:59 | DI.CT.S_ITS ---
PROCEDURE: CT ANGIO HEAD AND NECK INDICATIONS: severe 12/10 HOU TECHNIQUE: After the administration of intravenous contrast, 1 mm thick sections acquired from the aortic arch through the [place]. 3-dimensional [id number] (MIP) and/or volume rendering reformats were acquired of the central intracranial vasculature and neck separately. For radiation dose reduction, the following was used: automated exposure control, adjustment of mA and/or kV according to patient size. COMPARISON: None. FINDINGS: Image quality: Diagnostic. Cerebral CT Angiogram: Internal carotid arteries: No acute findings. Intracranial ICA are patent with no significant stenosis. No occlusion. No aneurysm. Anterior cerebral arteries: Unremarkable. No significant stenosis. No occlusion. No aneurysm. Middle cerebral arteries: Unremarkable. No significant stenosis. No occlusion. No aneurysm. Posterior cerebral arteries: Unremarkable. No significant stenosis. No occlusion. No aneurysm. Basilar artery: Unremarkable. No significant stenosis. No occlusion. No aneurysm. Vertebral arteries: Unremarkable as visualized. Dural venous sinuses: Unremarkable given phase of enhancement. Other: Arterial phase appearance of the brain parenchyma is unremarkable. Neck CT Angiogram: Internal carotid arteries: Unremarkable. No significant stenosis. No dissection or occlusion. Common carotid arteries: Unremarkable. No significant stenosis. No dissection or occlusion. External carotid arteries: Unremarkable. No occlusion. Vertebral arteries: Unremarkable. No significant stenosis. No dissection or occlusion. Aortic Arch and Mediastinum: Partially visualized aortic arch unremarkable without evidence of aneurysm. Origins of the great vessels unremarkable. Other: Arterial phase soft tissues of the neck and chest are unremarkable. IMPRESSION: No significant intracranial arterial abnormality is seen. No significant abnormality is seen within the arteries of the neck. Any quantitative measurements of stenosis were performed using NASCET criteria. Dictated by: Sumeet Garcia M.D. on 04/14/2025 at 9:38 Approved by: Sumeet Garcia M.D. on 04/14/2025 at 9:39
--- NOTE | 2025-04-14 10:00 | ED.HA ---
HPI - Headache General Chief Complaint: Headache Stated Complaint: Migraine Time Seen by Provider: 04/14/25 09:36 Mode of arrival: Ambulatory History of Present Illness HPI Narrative: 34-year-old female with history of ?migraines? presents to the emergency department for severe headache. Symptoms began 5 or 6 days ago, suddenly, proceeded to 12/10 pain within 5 minutes. No preceding trauma, chiropractic manipulation. She has associated nausea, light and sound sensitivity, right-sided neck pain. Pain initially started in the left temporal area now is predominantly in the right temporal face and neck. No visual field cut but has noted some issues with word substitution issues and brain fog. No paresthesias or weakness. Typically takes Excedrin for her migraine headaches which occur infrequently. This headache is different in that it is not improving with [id number] medication in his more severe than typical Related Data Home Medications ?Medication ?Instructions ?Recorded ?Confirmed prenat.vits,charlie,[id number] 1 tab PO DAILY 07/27/22 01/30/24 Previous Rx's ?Medication ?Instructions ?Recorded sumatriptan succinate 50 mg tablet See Rx Instructions PO .COMPLEX 10/08/22 (Imitrex) #20 tabs double electric breast pump 1 ea topical .prn #1 ea 12/24/22 oxycodone 5 mg tablet 5 mg PO Q4H PRN pain #20 tabs 03/11/23 ondansetron 8 mg disintegrating 8 mg PO Q8H PRN nausea and 04/12/25 tablet vomiting #10 tabs Allergies Allergy/AdvReac Type Severity Reaction Status Date / Time No Known Drug Allergies Allergy Verified 04/14/25 09:40 Review of Systems Review of Systems Narrative: Pertinent ROS obtained and negative except as stated in HPI Patient History Medical History (Updated 04/14/25 @ 11:46 by Leyla Miller MD) High risk HPV infection Chronic constipation Cough Bacterial vaginosis Migraine with aura and with status migrainosus Low back pain radiating down leg Anemia Genital warts IBS (irritable bowel syndrome) (~2019) Gastric ulcer Vaginal delivery (04/21/15) Acute pyelonephritis Surgical History (Updated 07/27/22 @ 13:54 by Barbie Ireland RN) [place] teeth extracted Family History (Updated 08/27/22 @ 21:17 by Fiorella Bustamante) Grandfather Stomach cancer Grandmother Heart disease Father Family estrangement Grandmother Hypertension Heart disease Mother Pre-diabetes Hyperlipidemia Overweight Grandfather Kidney disease Heart attack Sister No problems noted. Sister No problems noted. Sister No problems noted. Social History marital status: unmarried,living together household members: significant other and children lives independently: Yes caregiver/support person: Yes housing: apartment pets and animals: No education level: college (Associate's degree) occupational status: employed current occupational exposures/hazards: No special loly needs: No travel history: recent ([place]) seatbelt use: always helmet use: Yes water heater temp set < 120 deg: Yes working smoke detector in home: Yes fire extinguisher in home: Yes carbon monox detector in home: Yes firearms in home: No do you feel safe at home: Yes Smoking Status: Never smoker second hand exposure: No alcohol intake: former (3-4 glasses wine/week when not ) substance use type: does not use during the past year weight has: remained stable well-balanced diet: daily or most days daily servings fruits/ve-4 caffeine: Yes (6-12 oz coffee each morning) Type(s) of exercise: other (physical job) Smoking Status: Never smoker alcohol intake frequency: 0-2 drinks per day Exam Initial Vital Signs Initial Vital Signs: Vital Signs Temperature 98.2 F 04/14/25 09:40 Pulse Rate 84 04/14/25 09:40 Respiratory Rate 16 04/14/25 09:40 Blood Pressure 145/81 H 04/14/25 09:40 Pulse Oximetry 97 04/14/25 09:40 Oxygen Delivery Method Room Air 04/14/25 09:40 Constitutional: Well appearing, no acute distress Head: NCAT Cardiovascular: normal rate, appears well perfused Pulmonary: normal effort Extremities: No LE edema Skin: warm and dry Neurological: Alert. Mental status: Alert and oriented x3. Normal attention and follows commands. Memory grossly intact. Receptive & Expressive language intact. Visual/Spacial function - no neglect. Cranial nerves: Normal EOM. No visual loss. No facial palsy. Normal speech. No dysarthria. +photophobia Motor Exam: Equal 5/5 strength UE and LEs. Sensory Exam: Normal sensation. Reflex Exam: Coordination and Cerebellar Exam: No limb ataxia. No truncal ataxia. Normal coordination. No nystagmus noted. Course Orders Ordered: Discontinued Medications Dexamethasone (Dexamethasone 10 Mg/Ml Vial) 10 mg IV NOW ONE Stop: 04/14/25 10:00 Last Admin: 04/14/25 10:25 Dose: 10 mg Documented By: BRITTANY Diphenhydramine HCl (Diphenhydramine 50 Mg/Ml Vial) 25 mg IV NOW ONE Stop: 04/14/25 10:00 Last Admin: 04/14/25 10:25 Dose: 25 mg Documented By: BRITTANY Sodium Chloride (Normal Saline 0.9%) 1,000 mls @ 1,000 mls/hr IV BOLUS ONE Stop: 04/14/25 10:58 Last Infusion: 04/14/25 11:45 Dose: Infused Documented By: Admin: 04/14/25 10:24 Dose: 1,000 mls/hr Documented By: BRITTANY Prochlorperazine (Prochlorperazine 10 Mg/2 Ml Vial) 10 mg IV NOW ONE Stop: 04/14/25 10:00 Last Admin: 04/14/25 10:25 Dose: 10 mg Documented By: BRITTANY Vital Signs Vital signs: Vital Signs - 8 hr 04/14/25 09:40 Temperature 98.2 F Pulse Rate 84 Respiratory Rate 16 Blood Pressure 145/81 H Pulse Oximetry 97 Oxygen Delivery Method Room Air MDM - Headache Medical Records Medical records narrative: 34-year-old previously healthy female with history of migraines here with severe predominantly right-sided headache involving the face head and neck persistent over the last 5-6 days with sudden onset, most severe headache of her life. No preceding trauma or chiropractic manipulation. Here in the ED vital signs are stable. The patient appears uncomfortable in a dark room. She has photophobia but no focal neurologic deficit is noted. Given severity of symptoms have considered vascular etiology such as subarachnoid hemorrhage, less concern for acute arterial dissection. Presentation not consistent with acute encephalitis or meningitis. No mechanism of trauma that would be consistent with a epidural hemorrhage. Considered more benign etiology such as cervicogenic or musculoskeletal etiology of headache. Patient's age means not likely to be temporal arteritis. No recent infectious illness or visual disturbance that would elevated concern for CVT. We will send for CT CTA, provide IV Compazine and fluids, Benadryl, Decadron and reassess Laboratories are benign. CT CTA negative for acute findings. On reassessment she reports 0/10 pain after Compazine and Benadryl. We discussed low but non-zero risk of subarachnoid hemorrhage and whether or not she would want to undergo lumbar puncture today to further investigate. After some shared decision-making she would like to go home but will return if symptoms worsen. We discussed supportive care and for possible musculoskeletal or cervicogenic etiology of her headache. Did discuss calcifications with patient and her family and need for PCP follow up, possible neurology referral. Return precautions discussed and provided prior to discharge Lab Data 04/14/25 10:15 04/14/25 10:15 Labs: Lab Results 04/14/25 Range/Units 10:15 WBC 6.1 (4.5-11.0) X10^3/uL RBC 4.09 (4.0-5.2) X10^6/uL Hgb 12.0 (12.0-16.0) g/dL Hct 35.6 L (36-46) % MCV 87.0 (80-100) fL MCH 29.2 (26-34) PG MCHC 33.6 (30-36) % RDW 14.2 (11.6-14.8) % Plt Count 246 (150-400) X10^3/uL Neut % (Auto) 59.3 (50-75) % Lymph % (Auto) 33.8 (25-40) % [place]linger % (Auto) 6.0 (3-14) % Eos % (Auto) 0.4 L (2-4) % Baso % (Auto) 0.5 (0-2) % Neut # (Auto) 3600 (1417-1587) /uL Lymph # (Auto) 2100 (2616-3621) /uL [place]linger # (Auto) 400 (0-900) /uL Eos # (Auto) 0 (0-450) /uL Baso # (Auto) 0 (0-100) /uL Sodium 137 (137-145) mmol/L Potassium 4.1 (3.4-5.1) mmol/L Chloride 103 (98-107) mmol/L Carbon Dioxide 26 (22-32) mmol/L BUN 14 (7-17) mg/dL Creatinine 0.70 (0.52-1.04) mg/dL Estimated GFR > 60 (>60) mL/min BUN/Creatinine Ratio 20.0 (6-22) Glucose 98 (70-99) mg/dL Calcium 9.1 (8.4-10.2) mg/dL Discharge Plan Departure Patient Disposition: Home Clinical Impression: Headache Qualifiers: Headache type: unspecified Headache chronicity pattern: acute headache Intractability: not intractable Qualified Code(s): R51.9 - Headache, unspecified Instructions: DI for Headache Activity Restrictions/Additional Instructions: I am glad that your headache has gone away. Your tests today were reassuring. You were noted to have some calcifications in the area of the basal ganglia which I would like you to follow up with your family doctor about. They may want to refer you to a neurologist. Please return to the emergency department for recurrence of your headache or new symptoms such as vomiting, disturbances in speech or vision, fever or neck stiffness, or other new symptoms that are concerning to you. Since we are foregoing lumbar puncture today to further investigate for the presence of subarachnoid hemorrhage, I would like you to follow up with your family doctor for recheck or return if things are not going well at home Prescriptions: No Action ondansetron 8 mg tablet,disintegrating 8 mg PO Q8H PRN (Reason: nausea and vomiting) Qty: 10 0RF sumatriptan succinate [Imitrex] 50 mg tablet See Rx Instructions PO .COMPLEX Qty: 20 1RF Rx Instructions: take 1 tab at onset of headache; if no relief may repeat 1 tab after at least 2 hrs; max = 4 tabs/24 hr PO double electric breast pump 1 ea topical .prn Qty: 1 0RF Rx Instructions: With supplies prenat.vits,charlie,[id number] Tablet 1 tab PO DAILY oxycodone 5 mg tablet 5 mg PO Q4H PRN (Reason: pain) Qty: 20 0RF Referrals: Ирина Guevara MD [Primary Care Provider, Family Practice] Stand Alone Forms: Patient Portal/API
[2025-04-14 10:04] VITALS: PULSE 92; O2SAT 98
[2025-04-14 10:20] LABS: Add Manual Diff / Slide Review NO; Hematocrit 35.6 % (36-46); Hemoglobin 12.0 g/dL (12.0-16.0); Lymphocytes Absolute Auto 2100 /uL (1100-4500); Mean Corpuscular HGB Conc 33.6 % (30-36); Mean Corpuscular Hemoglobin 29.2 PG (26-34); Mean Corpuscular Volume 87.0 fL (80-100); Platelet Count 246 X10^3/uL (150-400)
[2025-04-14] MEDS: SODIUM CHLORIDE 0.9% 1,000 ML 1000 ML IV (10:24)
[2025-04-14] MEDS: PROCHLORPERAZINE 10 MG/2 ML VIAL IV (10:25)
[2025-04-14] MEDS: diphenhydrAMINE 50 MG/ML VIAL 25 MG IV (10:25)
[2025-04-14 10:30] VITALS: BP 138/88; PULSE 81; O2SAT 100
[2025-04-14 10:35] LABS: Blood Urea Nitrogen 14 mg/dL (7-17); Calcium 9.1 mg/dL (8.4-10.2); Carbon Dioxide 26 mmol/L (22-32); Chloride 103 mmol/L (98-107); Estimated Glomerular Filt Rate > 60 mL/min (>60); Glucose 98 mg/dL (70-99); HEMOLYSIS < 15 (0-50); Potassium 4.1 mmol/L (3.4-5.1); Sodium 137 mmol/L (137-145)
[2025-04-14 11:00] VITALS: BP 141/84; PULSE 89; O2SAT 98
[2025-04-14 11:30] VITALS: BP 124/81; PULSE 88; O2SAT 98
== END 2025-04-14 11:53 | disposition home or self-care (01) ==
PROVIDERS: Emergency Provider Student in an Organized Health Care Education/Training Program; Family Provider Family Medicine; PCP Family Medicine
DX: R51.9 Headache, unspecified (principal)
CPT/HCPCS: 36415; 70450; 70496; 70498; 80048; 85025; 96361; 96374; 96375; 99284; J0780; J1100; J1200; J7030; Q9967